=== PATIENT | male | born 1955 | race Caucasian/White ===

== ENCOUNTER 2018-06-20 16:00 | Emergency (ER) | payer MEDICARE ==
[~2018-06-20] VITALS: Ht 167.6 cm; Wt 71.7 kg
[~2018-06-20 16:00] MED LIST: GBPN100C PO; HYDR1TAB8 PO; MS15TCR PO; NAPR-243 PO; NCT21TD TD; PRD20T PO; TIZA4TAB55 PO
[2018-06-20] MEDS ORDERED: ASPIRIN 81 MG CHEW (CHILDREN'S ASA) PO ONE (16:15)
[2018-06-20 16:22] LABS: BASOPHILS # (AUTO) 0.1 10^3/uL (0.0-0.1); BASOPHILS % (AUTO) 1 % (0-10); EOSINOPHILS # (AUTO) 0.3 10^3/uL (0.0-0.3); EOSINOPHILS % (AUTO) 3 % (0-10); HEMATOCRIT 46 % (40-54); LYMPHOCYTES # (AUTO) 3.1 X 10^3 (1.0-4.0); LYMPHOCYTES % (AUTO) 30 % (12-44); MEAN CORPUSCULAR HEMOGLOBIN 32 PG (25-34); MEAN CORPUSCULAR HGB CONC 35 G/DL (32-36); MEAN CORPUSCULAR VOLUME 93 FL (80-99); MEAN PLATELET VOLUME 9.5 FL (7.4-10.4); MONOCYTES # (AUTO) 0.8 X 10^3 (0.0-1.0); MONOCYTES % (AUTO) 8 % (0-12); NEUTROPHILS # (AUTO) 6.1 X 10^3 (1.8-7.8); NEUTROPHILS % (AUTO) 59 % (42-75); PLATELET COUNT 307 10^3/uL (130-400); RED BLOOD COUNT 4.99 10^6/uL (4.35-5.85); RED CELL DISTRIBUTION WIDTH 12.9 % (10.0-14.5); WHITE BLOOD COUNT 10.4 10^3/uL (4.3-11.0)
--- NOTE | 2018-06-20 16:27 | Diagnostic Imaging Report ---
Indication: Chest pain. Frontal chest obtained at 4:19 hours p.m. Heart and mediastinal silhouette are normal in appearance. The lungs are clear. There is no pneumothorax or pleural fluid. Impression: Negative chest. Dictated by: Dictated on workstation # [id number]
[2018-06-20 16:40] LABS: ALANINE AMINOTRANSFERASE 14 U/L (0-55); ALBUMIN 4.6 GM/DL (3.2-4.5); ALKALINE PHOSPHATASE 92 U/L (40-136); BILIRUBIN,TOTAL 0.4 MG/DL (0.1-1.0); BUN/CREATININE RATIO 14; CALCIUM 10.6 MG/DL (8.5-10.1); CARBON DIOXIDE 23 MMOL/L (21-32); CHLORIDE 105 MMOL/L (98-107); CREATININE SERUM 1.15 MG/DL (0.60-1.30); GFR ESTIMATED > 60; GLUCOSE 95 MG/DL (70-105); MAGNESIUM 2.4 MG/DL (1.8-2.4); POTASSIUM 4.6 MMOL/L (3.6-5.0); SODIUM 138 MMOL/L (135-145); TOTAL PROTEIN 8.1 GM/DL (6.4-8.2)
[2018-06-20 16:42] LABS: INR 0.9 (0.8-1.4); PROTHROMBIN TIME PATIENT 12.5 SEC (12.2-14.7)
[2018-06-20 16:46] LABS: MYOGLOBIN SERUM 29.6 NG/ML (10.0-92.0)
[2018-06-20] MEDS ORDERED: NS IV 1000 ML 1,000 ML IV ONE (16:56)
[2018-06-20] MEDS ORDERED: RT-ALBUTEROL/IPRATROPIUM 3 ML (DUONEB) VIAL INH ONE (17:00)
[2018-06-20] MEDS ORDERED: CATHETER FLUSH 10 ML SYR IV PRN (17:00)
[2018-06-20] MEDS ORDERED: IOHEXOL 350 MG/ML 100 ML (OMNIPAQUE 350) VIAL IV ONE (17:00)
[2018-06-20] MEDS ORDERED: NS 250 ML (IVPB) BAG IV ONE (17:00)
--- NOTE | 2018-06-20 17:15 | ED Chest Pain ---
General Chief Complaint: Chest Pain Stated Complaint: CP Nursing Triage Note: PT AMBULATED TO ROOM 9 PT CO OF CHEST PAIN, PT STATES STARTED ON WEDNESDAY, PT HAS SOA STATES UPPER LUNGS BURNING, PT WAS SENT TO ED BY [facility]. RATES DISCOMFORT 03/17 Nursing Sepsis Screen: No Definite Risk Source: patient Exam Limitations: no limitations (ROMMEL OSPINA MD) History of Present Illness Date Seen by Provider: Jun 20, 2018 Time Seen by Provider: 16:02 Initial Comments Here with report of 2 days of shortness of air and upper lungs are burning. Had some central chest discomfort as well. Went to the clinic today and was sent here for further evaluation related heart problems. Denies previous heart attack. Denies previous heart problems. Does smoke and admits to some lung disease. Reports that he was helping a friend and put in stone block and did get into some dust from the stone block. Denies weakness but has had some nausea and shortness of breath. States that he has had some chills and sweating. Timing/Duration: 2-3 days Severity/Quality: moderate, burning, tightness Location: central Radiation: no radiation Activities at Onset: none Prior CP/Workup: no prior cardiac workup Modifying Factors: worse with breathing, worse with exercise; improves with rest ASA po TRANSPORTATION SECURITY SCREENER: No NTG SL TRANSPORTATION SECURITY SCREENER: No Associated Symptoms: No abdominal pain; diaphoresis, fatigue, fever/chills, nausea/vomiting, shortness of breath (ROMMEL OSPINA MD) Allergies and Home Medications Allergies Coded Allergies: No Known Drug Allergies (Unverified , 07/11/13) Home Medications Gabapentin 100 Mg Cap, 300 MG PO TID Prescribed by: KOSTA SOLORIO on 07/14/131118 Morphine Sulfate 15 Mg Tab, 1 EACH PO [id number] Prescribed by: KOSTA SOLORIO on 07/14/131118 Naproxen 500 Mg Tablet, 1 EACH PO BID Prescribed by: KOSTA SOLORIO on 07/14/13 111 Nicotine 21 Mg Box, 21 MG TD DAILY Prescribed by: KOSTA SOLORIO on 07/14/131118 Prednisone 20 Mg Tab, 40 MG PO BID WITH MEALS Prescribed by: KOSTA SOLORIO on 07/14/13 111 Tizanidine Hcl 4 Mg Tablet, 4 MG PO Q6PRN Prescribed by: KOSTA SOLORIO on 07/14/13 1119 Patient Home Medication List Home Medication List Reviewed: Yes (ROMMEL OSPINA MD) Review of Systems Constitutional: see HPI; No chills; diaphoresis EENTM: No Symptoms Reported Respiratory: See HPI, Shortness of Air, Wheezing Cardiovascular: Chest Pain; Denies Edema Gastrointestinal: Denies Abdominal Pain; Nausea; Denies Vomiting Genitourinary: No Symptoms Reported (ROMMEL OSPINA MD) All Other Systems Reviewed Negative Unless Noted: Yes (ROMMEL OSPINA MD) Past Fvksdlg-Yvduop-Vjgguk Hx Past Med/Social Hx: Reviewed Nursing Past Med/Soc Hx (ROMMEL OSPINA MD) Patient Social History Alcohol Use: Regular Use Number of Drinks Today: 0 Alcohol Beverage of Choice: Beer Recreational Drug Use: No Smoking Status: Current Everyday Smoker Type Used: Cigarettes Recent Foreign Travel: No Contact w/Someone Who Travel: No Recent Infectious Disease Expo: No Recent Hopitalizations: No Physical Abuse: No Sexual Abuse: No (ROMMEL OSPINA MD) Immunizations Up To Date Tetanus Booster (TDap): More than 5yrs PED Vaccines UTD: No Date of Pneumonia Vaccine: Aug 08, 2012 (ROMMEL OSPINA MD) Past Medical History Surgeries: Yes (knee and elbow surgery both on right) Orthopedic Respiratory: No Cardiac: No Neurological: No Reproductive Disorders: No Gastrointestinal: No Gastroesophageal Reflux, Hemorrhoids Musculoskeletal: Yes Chronic Back Pain Endocrine: No Cancer: No Psychosocial: No Nursing Suicide Risk Score: 0 Integumentary: No Blood Disorders: No (ROMMEL OSPINA MD) Family Medical History Reviewed Nursing Family Hx (ROMMEL OSPINA MD) No Pertinent Family Hx (ROMMEL OSPINA MD) Physical Exam Vital Signs Vital Signs - First Documented 06/20/18 16:00 Temp 97.5 Pulse 100 Resp 14 B/P (MAP) 158/101 (120) Pulse Ox 100 O2 Delivery Room Air (AHMET HOOPER) Vital Signs Capillary Refill : Less Than 3 Seconds (ROMMEL OSPINA MD) Height, Weight, BMI Height: 5'6.00" Weight: 158lbs. oz. 71.202487uw; BMI Method:Stated General Appearance: WD/WN, Anxious HEENT: PERRL/EOMI, Pharynx Normal Neck: Non Tender, Supple Respiratory: No Accessory Muscle Use, Expiration, Wheezing Cardiovascular: Regular Rate, Rhythm, No Murmur Gastrointestinal: Non Tender, Soft Rectal: Normal Exam, Normal Rectal Tone, Heme Negative Stool; No Mass, No Tenderness Extremity: Normal Range of Motion, Non Tender Neurologic/Psychiatric: Alert, Oriented x3 Skin: Normal Color, Warm/Dry (ROMMEL OSPINA MD) Focused Exam Lactate Level 06/20/18 16:13: Lactic Acid Level 0.85 (AHMET HOOPER) Lactic Acid Level Laboratory Tests Test 06/20/18 16:13 Lactic Acid Level 0.85 MMOL/L (0.50-2.00) (AHMET HOOPER) Progress/Results/Core Measures Results/Orders Lab Results Laboratory Tests Test 06/20/18 16:13 06/20/18 19:30 Range/Units White Blood Count 10.4 4.3-11.0 10^3/uL Red Blood Count 4.99 4.35-5.85 10^6/uL Hemoglobin 16.0 13.3-17.7 G/DL Hematocrit 46 40-54 % Mean Corpuscular Volume 93 80-99 FL Mean Corpuscular Hemoglobin 32 25-34 PG Mean Corpuscular Hemoglobin Concent 35 32-36 G/DL Red Cell Distribution Width 12.9 10.0-14.5 % Platelet Count 307 130-400 10^3/uL Mean Platelet Volume 9.5 7.4-10.4 FL Neutrophils (%) (Auto) 59 42-75 % Lymphocytes (%) (Auto) 30 12-44 % Monocytes (%) (Auto) 8 0-12 % Eosinophils (%) (Auto) 3 0-10 % Basophils (%) (Auto) 1 0-10 % Neutrophils # (Auto) 6.1 1.8-7.8 X 10^3 Lymphocytes # (Auto) 3.1 1.0-4.0 X 10^3 Monocytes # (Auto) 0.8 0.0-1.0 X 10^3 Eosinophils # (Auto) 0.3 0.0-0.3 10^3/uL Basophils # (Auto) 0.1 0.0-0.1 10^3/uL Prothrombin Time 12.5 12.2-14.7 SEC INR Comment 0.9 0.8-1.4 Activated Partial Thromboplast Time 20 L 24-35 SEC D-Dimer 0.81 H 0.00-0.49 UG/ML Sodium Level 138 135-145 MMOL/L Potassium Level 4.6 3.6-5.0 MMOL/L Chloride Level 105 98-107 MMOL/L Carbon Dioxide Level 23 21-32 MMOL/L Anion Gap 10 5-14 MMOL/L Blood Urea Nitrogen 16 7-18 MG/DL Creatinine 1.15 0.60-1.30 MG/DL Estimat Glomerular Filtration Rate > 60 BUN/Creatinine Ratio 14 Glucose Level 95 70-105 MG/DL Lactic Acid Level 0.85 0.50-2.00 MMOL/L Calcium Level 10.6 H 8.5-10.1 MG/DL Corrected Calcium 8.5-10.1 MG/DL Magnesium Level 2.4 1.8-2.4 MG/DL Total Bilirubin 0.4 0.1-1.0 MG/DL Aspartate Amino Transf (AST/SGOT) 17 5-34 U/L Alanine Aminotransferase (ALT/SGPT) 14 0-55 U/L Alkaline Phosphatase 92 40-136 U/L Myoglobin 29.6 23.6 10.0-92.0 NG/ML Troponin I < 0.30 < 0.30 <0.30 NG/ML B-Type Natriuretic Peptide 20.8 <100.0 PG/ML Total Protein 8.1 6.4-8.2 GM/DL Albumin 4.6 H 3.2-4.5 GM/DL (AHMET HOOPER) Medications Given in ED Current Medications Medications Dose Ordered Sig/Anuj Route Start Time Stop Time Status Last Admin Dose Admin Al Hydrox/Mg Hydrox/Simethicone 30 ml ONCE ONCE PO 06/20/18 17:45 06/20/18 17:46 DC 06/20/18 17:40 30 ML Albuterol/ Ipratropium 3 ml ONCE ONCE INH 06/20/18 17:00 06/20/18 17:01 DC 06/20/18 17:10 3 ML Aspirin 324 mg ONCE ONCE PO 06/20/18 16:15 06/20/18 16:16 DC 06/20/18 16:15 324 MG Iohexol 100 ml ONCE ONCE IV 06/20/18 17:00 06/20/18 17:01 DC 06/20/18 17:29 100 ML Lidocaine HCl 15 ml ONCE ONCE PO 06/20/18 17:45 06/20/18 17:46 DC 06/20/18 17:40 15 ML Pantoprazole 40 mg ONCE ONCE IV 06/20/18 18:00 06/20/18 18:01 DC 06/20/18 18:05 40 MG Sodium Chloride 10 ml NEEDED PRN IV 06/20/18 17:00 06/20/18 20:18 DC 06/20/18 17:29 10 ML Sodium Chloride 250 ml ONCE ONCE IV 06/20/18 17:00 06/20/18 17:01 DC 06/20/18 17:29 80 ML Sodium Chloride 1,000 ml @ 0 mls/hr Q0M ONCE IV 06/20/18 16:56 06/20/18 16:57 DC 06/20/18 18:05 1,000 MLS/HR (AHMET HOOPER) Vital Signs/I&O 06/20/18 06/20/18 06/20/18 06/20/18 16:00 16:00 17:11 17:50 Temp 97.5 Pulse 100 Resp 14 B/P (MAP) 158/101 (120) Pulse Ox 100 96 97 O2 Delivery Room Air Room Air Room Air 06/20/18 20:18 Pulse 109 Resp 16 B/P (MAP) 120/85 Pulse Ox 99 (RUFUSAHMET J) Blood Pressure Mean: 120 Progress Progress Note : Progress Note Seen and evaluated. IV, labs, EKG and chest x-ray ordered. Monitor patient. D -dimer noted to be elevated. Duo neb, normal saline [address] angiogram of the chest ordered. Monitor patient. Patient is feeling much better at time of ordering CT. 1745: Patient return from CT was severe of her chest pain. GI cocktail given which did help. Patient does admit to having postdelivery reflux especially worsening over the last week. He did take Pepto-Bismol the other night for his reflux because he is out of and acids. Hemoccult stool was done and this was negative and dark stool likely related to Pepto-Bismol. He did receive morphine 5 mg IV for the pain and this did help. Repeat albuterol neb and Solu-Medrol 125 mg IV ordered as well. Protonix 40 mg IV ordered. Monitor patient. 1850: We will repeat troponin and myoglobin as well as EKG. Patient is pain-free and doing much better. Anticipate discharge after labs remain the same. (ROMMEL OSPINA MD) Progress Note : Time: 20:06 Progress Note Assume care of the patient at shift change. Plan is to get a rule out troponin. I reviewed the history and examination with Dr. Ospina as well as with the patient and agree with his findings as documented in the chart. Does seem to be driven by gastrointestinal distress probably GERD. If there is no rise in the delta troponin and the plan is to follow up outpatient. The patientn agreement with this plan. Second EKG is unremarkable. Waiting the second troponin. (AHMET HOOPER) Initial ECG Impression Date: Jun 20, 2018 Initial ECG Impression Time: 16:02 Initial ECG Rate: 69 Initial ECG Rhythm: Normal Sinus Comment Sinus rhythm with left atrial abnormality. No evidence of ST elevation IA. Normal axis. No previous from this facility available for comparison but similar to EKG done earlier today at outside clinic. Interpreted by me. (ROMMEL OSPINA MD) Initial ECG Intervals: Normal Initial ECG Impression: Normal Initial ECG Comparisson: Unchanged EKG : EKG Time: 19:16 Rate: 98 Rhythm: Normal Sinus Intervals: Normal ECG Comparisson: Unchanged ECG Impression: Normal Comment No ST elevation or depression. (AHMET HOOPER) Diagnostic Imaging Diagonstic Imaging: Xray Plain Films/CT/US/NM/MRI: chest Comments NAME: SONDRA PATEL [facility] REC#: [id number] PT STATUS: REG ER : 1955 PHYSICIAN: ROMMEL OSPINA MD ADMIT DATE: 06/20/18/ER Signed Date of Exam: 06/20/18 CHEST 1 VIEW, AP/PA ONLY Indication: Chest pain. Frontal chest obtained at 4:19 hours p.m. Heart and mediastinal silhouette are normal in appearance. The lungs are clear. There is no pneumothorax or pleural fluid. Impression: Negative chest. Dictated by: Dictated on workstation # [id number] Dict: 06/20/18 1625 Trans: 06/20/18 1636 Interpreted by: SHARIFA PURDY MD Electronically signed by: SHARIFA PURDY MD 06/20/18 1636 Reviewed: Reviewed by Me Diagonstic Imaging: CT Plain Films/CT/US/NM/MRI: chest Comments NAME: SONDRA PATEL [facility] REC#: [id number] PT STATUS: REG ER : 1955 PHYSICIAN: ROMMEL OSPINA MD ADMIT DATE: 06/20/18/ER Draft Date of Exam:06/20/18 CT ANGIO CHEST W PROCEDURE: CT angiography of the chest with contrast. TECHNIQUE: Multiple contiguous axial images were obtained through the chest after uneventful bolus administration of intravenous contrast. Reconstructed CTA MIP acquisitions were also performed. INDICATION: Chest pain. There are no prior CTA chest examinations available for comparison. FINDINGS: The plain film examination of the chest performed earlier today at 0418 hours failed to show any sign of an acute cardiopulmonary abnormality. This study is less than optimal as the pulmonary arteries are not fully opacified. There is no definite defect within the pulmonary arteries to indicate a pulmonary embolus. The aorta is not abnormally dilated and there is no sign of a dissection. The heart size is within normal limits. There are coronary artery calcifications involving the LAD. The lungs are clear. There is no evidence for failure, pneumonia or for pleural effusion. There is no mediastinal or hilar adenopathy. The thyroid gland, where visualized, is unremarkable. The sections through the upper abdomen fail to show any sign of an acute abnormality. The bone windows are unremarkable for a fracture or for a destructive lesion. There is at least moderate degenerative disc and bony disease throughout the thoracic spine. IMPRESSION: 1. There is no evidence for an acute cardiopulmonary abnormality on this suboptimal exam. In particular, there is no sign of a pulmonary embolus. 2. The heart is not enlarged. There are coronary calcifications evident. 3. There is at least moderate degenerative and bony disease of the thoracic spine. Dictated on workstation # [id number] Dict: 06/20/181737 Trans: 06/20/181747 [facility] [id number] Interpreted by: EAMON KAUFFMAN MD Electronically signed by: Reviewed: Reviewed by Me (ROMMEL OSPINA MD) Departure Impression Primary Impression: Chest pain Qualified Codes: R07.9 - Chest pain, unspecified Additional Impressions: Gastroesophageal reflux disease Qualified Codes: K21.9 - Gastro-esophageal reflux disease without esophagitis Bronchitis Disposition: 01 HOME, SELF-CARE Condition: Improved Departure-Patient Inst. Decision time for Depature: 18:57 (ROMMEL OSPINA MD) Referrals: JOE POLANCO DO (PCP) Primary Care Physician HERMILA FERRARA (Family) Primary Care Physician BEN LOW DO Patient Instructions: Acid Reflux (Gastroesophageal Reflux Disease), Adult (DC) , Acute Bronchitis, Adult (DC), Chest Pain (DC) Add. Discharge Instructions: All discharge instructions reviewed with patient and/or family. Voiced understanding. Take medications as directed. Follow-up with the clinic in one to 2 days for recheck. You tomorrow to get her prescription for your Protonix and start taking that tomorrow. You may also take Pepcid or the generic famotidine 20 mg once or twice a day as needed for stomach upset as well. It is very important that you follow-up and get follow-up with a surgeon for possible upper endoscopy (scope) to evaluate for your stomach and burning esophagus problems. Return for worse pain, fever, vomiting, weakness, breathing problems or other concerns as needed. Copy Copies To 1: CYNTHIA MENDEZ MD, TIMOTHY D MD Jun 20, 2018 17:15 AHMET HOOPER Jun 20, 2018 20:07
[2018-06-20] MEDS ORDERED: methylPREDNISolone 125 MG (Solu-MEDROL) VIAL ONE (17:33)
[2018-06-20] MEDS ORDERED: methylPREDNISolone 125 MG (Solu-MEDROL) VIAL IV STA (17:34)
[2018-06-20] MEDS ORDERED: RT-ALBUTEROL SULF 2.5 MG/3 ML PRE-MIX VIAL INH STA (17:35)
[2018-06-20] MEDS ORDERED: morphine INJ 10 MG/ML 1ML (SYR OR VIAL) ONE (17:41)
[2018-06-20] MEDS ORDERED: morphine INJ 10 MG/ML 1ML (SYR OR VIAL) IVP STA (17:42)
[2018-06-20] MEDS ORDERED: LIDOCAINE 2% VISCOUS 15 ML UDC PO ONE (17:45)
[2018-06-20] MEDS ORDERED: ANTACID SUSP 30 ML UDC (MYLANTA) PO ONE (17:45)
--- NOTE | 2018-06-20 17:48 | Diagnostic Imaging Report ---
PROCEDURE: CT angiography of the chest with contrast. TECHNIQUE: Multiple contiguous axial images were obtained through the chest after uneventful bolus administration of intravenous contrast. Reconstructed CTA MIP acquisitions were also performed. INDICATION: Chest pain. There are no prior CTA chest examinations available for comparison. FINDINGS: The plain film examination of the chest performed earlier today at 0418 hours failed to show any sign of an acute cardiopulmonary abnormality. This study is less than optimal as the pulmonary arteries are not fully opacified. There is no definite defect within the pulmonary arteries to indicate a pulmonary embolus. The aorta is not abnormally dilated and there is no sign of a dissection. The heart size is within normal limits. There are coronary artery calcifications involving the LAD. The lungs are clear. There is no evidence for failure, pneumonia or for pleural effusion. There is no mediastinal or hilar adenopathy. The thyroid gland, where visualized, is unremarkable. The sections through the upper abdomen fail to show any sign of an acute abnormality. The bone windows are unremarkable for a fracture or for a destructive lesion. There is at least moderate degenerative disc and bony disease throughout the thoracic spine. IMPRESSION: 1. There is no evidence for an acute cardiopulmonary abnormality on this suboptimal exam. In particular, there is no sign of a pulmonary embolus. 2. The heart is not enlarged. There are coronary calcifications evident. 3. There is at least moderate degenerative and bony disease of the thoracic spine. Dictated by: Dictated on workstation # [id number]
[2018-06-20] MEDS ORDERED: PANTOPRAZOLE 40 MG/10 ML (PROTONIX) VIAL IV ONE ×2 (18:00→18:30)
[2018-06-20] MEDS ORDERED: RX-ALBUTEROL INHALER (PROAIR) 8 GM IH STA (19:00)
[2018-06-20 20:06] LABS: MYOGLOBIN SERUM 23.6 NG/ML (10.0-92.0)
[2018-06-20 20:18] VITALS: BP 120/85
== END 2018-06-20 20:17 | disposition home or self-care (01) ==
LOC: EDUNIT# 16:00 → ER 16:02
DX: R07.9 Chest pain, unspecified (principal); K21.9 Gastro-esophageal reflux disease without esophagitis; J40 Bronchitis, not specified as acute or chronic; F17.210 Nicotine dependence, cigarettes, uncomplicated; Z79.52 Long term (current) use of systemic steroids; Z87.19 Personal history of other diseases of the digestive system
CPT/HCPCS: 36415; 71045; 71275; 80053; 83605; 83735; 83874; 83880; 84484; 85025; 85379; 85610; 85730; 87040; 93005; 93041; 94640

== ENCOUNTER 2018-07-14 15:55 | Outpatient (CLI) | payer MEDICARE ==
[~2018-07-14] VITALS: Ht 167.6 cm; Wt 71.7 kg
[2018-07-14] MEDS ORDERED: OMEP20TA7 PO (16:03)
== END 2018-07-14 16:05 | disposition home or self-care (01) ==
LOC: PREOP 15:55
PROVIDERS: ATTEND Surgery
DX: Z01.818 Encounter for other preprocedural examination (principal)

== ENCOUNTER 2018-07-18 09:49 | Day surgery (SDC) | payer MEDICARE ==
[~2018-07-18] VITALS: Ht 167.6 cm; Wt 71.7 kg
[~2018-07-18 09:49] MED LIST changes: +OMEP20TA7 PO
--- OUTSIDE RECORDS SUMMARY | 2018-07-18 09:53 | XMS REPORT ---
Author Author [employer] [facility] Medical Staff Organization [facility] Address [address] [place], [place] [address] Phone [phone] Summary purpose TRANSITION OF CARE AUTO GENERATION Chief Complaint and Reason for Visit Admit Diagnosis 1 BACKACHE NOS Problem list No authorized problems tracked for continuity of care are available for this visit. Encounters No authorized problems tracked for encounter diagnoses are available for this visit. Medications No medications recorded for this patient visit Allergies, adverse reactions, alerts No allergy information is available for this patient. Immunizations No immunizations recorded for this patient visit Relevant diagnostic tests and/or laboratory data No authorized results are available for this patient visit History of procedures Procedure Code Code Type Description Date Performed Performing Physician [id number] CPT-4 TORADOL SYR 30MG/ML 07-27-2015 PRASAD JUNIOR 25600 CPT-4 EMERGENCY DEPT VISIT 07-27-2015 PRASAD JUNIOR 92522 CPT-4 EMERGENCY DEPT VISIT 07-27-2015 PRASAD JUNIOR 28101 CPT-4 THER/PROPH/DIAG INJ, SC/IM 07-27-2015 PRASAD JUNIOR Functional status Functional Status Finding Observation Time Abdomen Appearance flat :05 Abdomen soft :05 Oakes no :05 Urination normal :05 Quality sym/unlabored :05 Cough absent :05 Secretions no :05 Breath Sounds RUL clear :05 Breath Sounds RML clear :05 Breath Sounds RLL clear :05 Breath Sounds LIDA clear :05 Breath Sounds LLL clear :05 Airway natural :05 Chest Tube no :05 Oxygen no [id number] Temp >100.4 no :05 Temp <96.8 no :05 Chills with rigors no :05 HR > 90bpm no :05 Respirations > 20 yes :05 Systolic <90 no :05 headache stiff neck no :05 Nursing Note Into room with Dr to discharge pt. DC inst given to pt and verb understanding. Pt amb off unit in stable condition. :05 Vital signs Type Value Date Respiration Rate 22breaths per minute :05 Pulse 88beats per minute :05 Oxygen Saturation 95% :05 BP Systolic 124mmHg :05 BP Diastolic 89mmHg :05 Temperature 97.1F :05 Social history Type Value Smoking Status CURRENT EVERY DAY SMOKER Treatment Plan No treatment plan text is available for this visit. Hospital discharge instructions Dismissal Condition fair Disposition on DC home DC Inst/Educ Give yes Med/Side Effects Rev yes
--- OUTSIDE RECORDS SUMMARY | 2018-07-18 09:53 | XMS REPORT ---
Author Author [facility] Medical Staff Organization [facility] Address [address], [place] [id number] Phone [phone] Summary purpose TRANSITION OF CARE AUTO GENERATION Chief Complaint and Reason for Visit No authorized Reason for Visit (Admitting Diagnosis) is available for this visit. Problem list No authorized problems tracked for [...] for this patient visit History of procedures No procedures recorded for this patient visit. Functional status Functional Status Finding Observation Time Abdomen Appearance flat :05 Abdomen soft :05 Oakes no :05 Urination normal :05 Quality sym/unlabored :05 Cough absent :05 Secretions no :05 Breath Sounds RUL clear :05 Breath Sounds RML clear :05 Breath Sounds RLL clear :05 Breath Sounds LIDA clear :05 Breath Sounds LLL clear :05 Airway natural :05 Chest Tube no :05 Oxygen no :05 Temp >100.4 no :05 Temp <96.8 no [...]
--- OUTSIDE RECORDS SUMMARY | 2018-07-18 09:54 | XMS REPORT ---
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 Name Role Phone CM BEARD Unavailable PROBLEMS Type Condition ICD9-CM Code TOL74-SM Code Onset Dates Condition Status SNOMED Code Problem 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 syndrome G89.4 Active 702678504 Problem Degenerative tear of glenoid labrum of right shoulder M24.111 Active 385478649 Problem Other chronic pain G89.29 Active 01285934 Problem Other fatigue R53.83 Active 84123123 Problem Other chronic pain G89.29 Active 02624024 Problem Other chest pain R07.89 Active 94048866 Problem Gastroesophageal reflux disease, esophagitis presence not specified K21.9 Active 655930080 Problem Rotator cuff syndrome of right shoulder M75.101 Active [id number] Problem Incomplete rotator cuff tear or rupture of right shoulder, not specified as traumatic M75.111 Active [id number] Problem Lumbago with sciatica, right side M54.41 Active 358080630 Problem Lumbago with sciatica, left side M54.42 Active 914075548 ALLERGIES No Information ENCOUNTERS Encounter Location Date Diagnosis [facility] [address] [id number] [address] 14 Jun, 2018 Gastroesophageal reflux disease, esophagitis presence not specified K21.9 and Other chest pain R07.89 [facility] [address] [facility] [id number] [address] 13 Jun, 2018 Chest pain, unspecified type R07.9 ; Shortness of breath R06.02 ; Black stools K92.1 ; Acute midline low back pain without sciatica M54.5 ; Rash R21 and Lumbago with sciatica, right side M54.41 [facility] [address] [id number], [place] [address] May, Incomplete rotator cuff tear or rupture of right shoulder, not specified as traumatic M75.111 [place] [address] [address] Feb, Lumbago with sciatica, right side M54.41 ; Lumbago with sciatica, left side M54.42 ; Other chronic pain G89.29 and Elevated BP without diagnosis of hypertension R03.0 [place] [address] [address] Feb, Rotator cuff syndrome of right shoulder M75.101 [place] [address] [address]- [address] Dec, Incomplete rotator cuff tear or rupture of right shoulder, not specified as traumatic M75.111 and Degenerative tear of glenoid labrum of right shoulder M24.111 [place] [address] [address] Nov, Pain in right shoulder M25.511 ; Other chronic pain G89.29 and Cough R05 [place] [address] [address]- [address] Nov, Acute midline low back pain without sciatica M54.5 [place] [address] [address] 16 Aug, 2017 Rash R21 [facility] [address] [address] Jun, LLQ abdominal pain R10.32 and Diverticulitis of large intestine without bleeding, unspecified complication status K57.32 [place] [address] [address] Apr, 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 syndrome G89.4 [place] [address] [address]- [address] 07 Apr, 2017 Seborrheic keratosis L82.1 [place] [address] [address] March, Parotid gland enlargement K11.1 [facility] [id number] [place] [address] March, Tick bite, initial encounter W57.XXXA [facility] [id number] [place] [address]- 5[address] March, [place] [address] [address] Feb, Preop testing Z01.818 [place] [address] [address]- [address] Feb, Screening, lipid Z13.220 [place] [address] [address]- [address] Feb, 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 syndrome G89.4 [place] [address] [address]- 1082 Jan, Chondromalacia, right knee M94.261 [place] [address] [address]- [address] Dec, Pain in right knee M25.561 ; Other chronic pain G89.29 ; Parotid gland enlargement K11.1 and Screening, lipid Z13.220 [facility] [id number] [place] [address] 6[address]- 6159 Nov, Encounter for immunization Z23 [place] [id number] [place] [address] 39771- 0203 Jun, 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 syndrome G89.4 [place] [address] [address]- 08[address] May, 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 syndrome G89.4 and 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 [place] [id number] [place] [address]47- 7281 May, [place] [address] [address] May, Seborrheic keratosis L82.1 [facility] [address] [address] March, [facility] [id number] [place] [address] 02919- 8956 Feb, [facility] [id number] [place] [address] 685497- 2668 Jan, [facility] [id number] [place] [address] 45589- 0436 Jan, 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 syndrome G89.4 and senior living current use of opiate analgesic Z79.891 [facility] [id number] [place] [address] 6[address]85- 7923 Jan, 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 syndrome G89.4 and senior living current use of opiate analgesic Z79.891 [facility] [id number] [place] [address] 06425- 0791 Dec, [facility] [id number] [place] [address] 083625- 7508 Dec, Knee pain M25.569 [facility] [id number] [place] [address]27- 9528 Nov, [facility] [address] [address] 16[address] Oct, [facility] [id number] [place] [address] 10714- 6849 Oct, [facility] [id number] [place] [address] 679460- 2057 Sep, [facility] [id number] [place] [address] 026284- 9186 Aug, [facility] [address] [address] Aug, [facility] [id number] [place] [address] 04516- 5172 Jul, [facility] [place] [facility] [address] [facility] [id number] [place] [address] Jul, No condition on [place] I V71.09 and No condition on [place] II V7. [facility] [place] [facility] [address] [id number] [place] [address]- 3897 22 Jul, 2015 [facility] [place] [facility] [address] [id number] [place] [address]- 8636 Jul, [facility] [place] [facility] [address] [id number] [place] [address]- 1293 Jul, [facility] [place] [facility] [address] [id number] [place] [address]- 0817 Jun, [facility] [place] [facility] [address] [facility] [id number] [place] [address] Jun, [facility] [place] [facility] [address] [facility] [id number], [place] [address]- 366[address] May, [facility] [place] [facility] [address] [facility] [id number] [place] [address]- 8840 May, [facility] [place] [facility] [address] [facility] [id number], [place] [address]- 0[address] Apr, [facility] [place] [facility] [address] [facility] [id number], [place] [address]- 359[address] Apr, [facility] [place] [facility] [address] [facility] [id number], [place] [address]- 0091 March, [facility] [place] [facility] [address] [facility] [id number] [place] [address]- 0480 Feb, [facility] [place] [facility] [address] [facility] [id number] [place] [address]- 9481 Feb, [facility] [place] [facility] [address] [facility] [id number], [place] [address]- 0158 Jan, [facility] [place] [facility] [address] [facility] [id number], [place] [address]- 5781 Jan, [facility] [place] [facility] [address] [id number] [place] [address]- 8109 Jan, [facility] [place] [facility] [address] [id number] [place] [address]- 3816 Jan, [facility] [place] [facility] [address] [id number] [place] [address]- 2091 Jan, [facility] [place] [facility] [address] [id number] [place] [address]- 0699 17 Jan, 2015 [facility] [place] [facility] [address] [id number] [place] [address]- 5198 16 Jan, 2015 [facility] [place] [facility] [address] [id number] [place] [address]- 9345 Jan, [facility] [place] [facility] [address] [facility] [id number] [place] [address]- 6340 Jan, [facility] [place] [facility] [address] [id number] [place] [address]- 6051 Dec, [facility] [place] [facility] [address] [id number] [place] [address]- 1560 Dec, [facility] [place] [facility] [address] [facility] [id number] [place] [address]- 8438 Dec, [facility] [place] [facility] [address] [facility] [id number] [place] [address]- 6186 Dec, [facility] [place] [facility] [address] [id number] [place] [address]- 2972 Dec, [facility] [place] [facility] [address] [id number] [place] [address] Dec, [facility] [place] [facility] [address] [id number] [place] 1258 Nov, [facility] [place] [facility] [address] [id number] [place] [address]- 1902 Nov, [facility] [place] [facility] [address] [id number] [place] [address]- 9653 Nov, [facility] [place] [facility] [address] [id number] [place] [address]- 6634 Nov, [facility] [place] [facility] [address] [id number] [place] [address]- 7740 Nov, [facility] [place] [facility] [address] [id number] [place] [address]- 1055 Nov, [facility] [place] [facility] [address] [id number] [place] [address]- 1082 Nov, [facility] [place] [facility] [address] [id number] [place] [address]- 3672 Nov, [facility] [place] [facility] [address] [id number] [place] [address]- 1840 Nov, [facility] [address] [id number] [place] [address]- 5312 Oct, [facility] [place] [facility] [address] [id number] [place] [address]- 2771 18 Oct, 2014 [facility] [place] [facility] [address] [id number] [place] [address]- 5483 18 Oct, 2014 [facility] [place] [facility] [address] [id number] [place] [address]- 6562 18 Oct, 2014 [facility] [place] [facility] [address] [id number] [place] [address]- 1920 16 Oct, 2014 [facility] [place] [facility] [address] [id number] [place] [address]- 1634 16 Oct, 2014 [facility] [place] [facility] [address] [id number] [place] [address]- 1988 Sep, [facility] [place] [facility] [address] [id number] [place] [address]- 9658 Sep, [facility] [place] [facility] [address] [id number] [place] [address]- 1104 Sep, [facility] [place] [facility] [address] [id number] [place] [address]- 9678 Sep, [facility] [place] [facility] [address] [id number] [place] [address]- 7685 Sep, [facility] [place] [facility] [address] [id number] [place] [address]- 4781 Sep, [facility] [place] [facility] [address] [id number] [place] [address]- 6562 Sep, [facility] [place] [facility] [address] [id number] [place] [address]- 1064 Sep, [facility] [place] [facility] [address] [id number] [place] [address]- 1970 Sep, [facility] [place] [facility] [address] [id number] [place] [address]- 6484 Sep, [facility] [place] [facility] [address] [id number] [place] [address]- 8369 Sep, [facility] [place] [facility] [address] [id number] [place] [address]- 8432 Sep, [facility] [place] [facility] [address] [id number] [place] [address]- 9525 Sep, [facility] [place] [facility] [address] [id number] [place] [address]- 9951 Sep, [facility] [place] [facility] [address] [id number] [place] [address]- 8845 Aug, [facility] [place] [facility] [address] [id number] [place] [address]- 4251 Aug, [facility] [place] [facility] [address] [id number] [place] [address]- 4468 Aug, [facility] [place] [facility] [address] [id number] [place] [address]- 3899 Aug, [facility] [place] [facility] [address] [id number] [place] [address]- 2268 Aug, [facility] [place] [facility] [address] [id number] [place] [address]- 8024 Aug, [facility] [place] [facility] [address] [id number] [place] [address]- 6382 Aug, [facility] [place] [facility] [address] [id number] [place] [address]- 4573 Aug, [facility] [place] [facility] [address] [id number] [place] [address]- 4453 Aug, [facility] [place] [facility] [address] [id number] [place] [address]- 6319 24 Jul, 2014 [facility] [place] [facility] [address] [id number] [place] [address]- 9548 24 Jul, 2014 [facility] [place] [facility] [address] [id number] [place] [address]- 0480 15 Jul, 2014 [facility] [place] [facility] [address] [id number] [place] [address]- 7568 15 Jul, 2014 [facility] [place] [facility] [address] [id number] [place] [address]- 0941 11 Jul, 2014 [facility] [place] [facility] [address] [id number] [place] [address]- 5374 Jul, [facility] [place] [facility] [address] [id number] [place] [address]- 9368 Jul, [facility] [place] [facility] [address] [id number] [place] [address]- 5109 Jul, [facility] [place] [facility] [address] [id number] [place] [address]- 1945 Jun, [facility] [place] [facility] [address] [id number] [place] [address]- 8193 Jun, [facility] [place] [facility] [address] [id number] [place] [address]- 5019 Jun, [facility] [place] [facility] [address] [id number] [place] [address]- 4469 Jun, [facility] [place] [facility] [address] [id number] [place] [address]- 4442 Jun, [facility] [place] [facility] [address] [id number] [place] [address]- 1857 Jun, [facility] [place] [facility] [address] [id number] [place] [address]- 5692 Jun, [facility] [place] [facility] [address] [id number] [place] [address]- 1166 Jun, [facility] [place] [facility] [address] [id number] [place] [address]- 0565 Jun, [facility] [place] [facility] [address] [id number] [place] [address]- 4770 Jun, [facility] [place] [facility] [address] [id number] [place] [address]- 4434 May, [facility] [place] [facility] [address] [id number] [place] [address]- 2200 May, [facility] [place] [facility] [address] [id number] [place] [address]- 7119 May, [facility] [place] [facility] [address] [id number] [place] [address]- 7907 May, [facility] [place] [facility] [address] [id number] [place] [address]- 0133 May, [facility] [place] [facility] [address] [id number] [place] [address]- 7032 May, [facility] [place] [facility] [address] [id number] [place] [address]- 7958 May, [facility] [place] [facility] [address] [id number] [place] [address]- 0087 May, [facility] [place] [facility] [address] [id number] [place] [address]- 1144 May, [facility] [place] [facility] [address] [id number] [place] [address]- 3642 May, [facility] [place] [facility] [address] [id number] [place] [address]- 8423 Apr, [facility] [place] [facility] [address] [id number] [place] [address]- 6860 Apr, [facility] [place] [facility] [address] [id number] [place] [address]- 0496 Apr, [facility] [place] [facility] [address] [id number] [place] [address]- 2332 Apr, [facility] [place] [facility] [address] [id number] [place] [address]- 7918 Apr, [facility] [place] [facility] [address] [id number] [place] [address]- 4343 Apr, [facility] [place] [facility] [address] [id number] [place] [address]- 5969 Apr, [facility] [place] [facility] [address] [id number] [place] [address]- 9954 Apr, [facility] [place] [facility] [address] [id number] [place] [address]- 1241 March, [facility] [place] [facility] [address] [id number] [place] [address]- 8717 March, [facility] [place] [facility] [address] [id number] [place] [address]- 5027 Feb, [facility] [place] [facility] [address] [id number] [place] [address]- 8412 Feb, [facility] [place] [facility] [address] [id number] [place] [address]- 1910 Feb, [facility] [place] [facility] [address] [id number] [place] [address]- 6301 Feb, [facility] [place] [facility] [address] [id number] [place] [address]- 8043 02 Feb, 2014 [facility] [place] [facility] [address] [id number] [place] [address]- 0746 19 Jan, 2014 [facility] [place] [facility] [address] [id number] [place] [address]- 0339 19 Jan, 2014 [facility] [place] [facility] [address] [id number] [place] [address]- 5080 17 Jan, 2014 [facility] [place] [facility] [address] [id number] [place] [address]- 3833 17 Jan, 2014 [facility] [place] [facility] [address] [id number] [place] [address]- 7668 14 Jan, 2014 [facility] [place] [facility] [address] [id number] [place] [address]- 3685 14 Jan, 2014 [facility] [place] [facility] [address] [id number] [place] [address]- 1911 14 Jan, 2014 [facility] [place] [facility] [address] [id number] [place] [address]- 5125 14 Jan, 2014 [facility] [place] [facility] [address] [id number] [place] [address]- 9892 Dec, [facility] [place] [facility] [address] [id number] [place] [address]- 7003 Dec, [facility] [place] [facility] [address] [id number] [place] [address]- 6843 Dec, [facility] [place] [facility] [address] [id number] [place] [address]- 2804 Dec, [facility] [place] [facility] [address] [id number] [place] [address]- 5958 Dec, [facility] [place] [facility] [address] [id number] [place] [address] Dec, [facility] [place] [facility] [address] [id number], [place] [address]- 6484 Dec, [facility] [address] [id number] [place] [address]- 4162 Dec, [facility] [place] [facility] [address] [id number] [place] [address]- 9422 Nov, [facility] [place] [facility] [address] [facility] [id number] [place] [address]- 9981 Nov, [facility] [place] [facility] [address] [id number] [place] [address]- 2454 Nov, [facility] [place] [facility] [address] [id number] [place] [address]- 9208 Nov, [facility] [place] [facility] [address] [id number] [place] [address]- 3594 Nov, [facility] [address] [facility] [id number], [place] [address] Nov, [facility] [place] [facility] [address] [facility] [id number] [place] [address] Nov, [facility] [address] [id number] [place] [address] Oct, [facility] [place] [facility] [address] [facility] [id number] [place] [address] Oct, [facility] [place] [facility] [address] [id number], [place] [address] Oct, [facility] [place] [facility] [address] [id number], [place] [address] Oct, [facility] [place] [facility] [address] [id number] [place] [address] Oct, [facility] [place] [facility] [address] [facility] [id number] [place] [address] Oct, [facility] [place] [facility] [address] [facility] [id number] [place] [address] Oct, [facility] [place] [facility] [address] [id number] [place] [address] Oct, [facility] [place] [facility] [address] [id number] [place] [address] Sep, [facility] [place] [facility] [address] [id number] [place] [address] Sep, [facility] [place] [facility] [address] [id number] [place] [address] Aug, [facility] [place] [facility] [address] [id number] [place] [address] Aug, [facility] [place] [facility] [address] [id number] [place] [address] Aug, [facility] [place] [facility] [address] [id number] [place] [address] Aug, [facility] [place] [facility] [address] [id number] [place] [address] 27 Jul, 2013 [facility] [place] [facility] [address] [id number] [place] [address] 26 Jul, 2013 [facility] [place] [facility] [address] [id number] [place] [address] 17 Jul, 2013 [facility] [place] [facility] [address] [id number] [place] [address] 16 Jul, 2013 [facility] [place] [facility] [address] [id number] [place] [address] Jun, [facility] [place] [facility] [address] [id number] [place] [address] Jun, [facility] [place] [facility] [address] [id number] [place] [address] Jun, [facility] [place] [facility] [address] [id number] [place] [address] 18 Feb, 2013 [facility] [place] [facility] [address] [id number] [place] [address] Jan, [facility] [address] [facility] [id number], [place] [address] Dec, [facility] [address] [facility] [id number][place] [address] Dec, [facility] [id number], [place] [address] Dec, [facility] [id number], [place] [address] Jan, [facility] [id number], [place] [address] Dec, [facility] [address] [id number] [address] [address] Dec, [facility] [id number], [place] [address] Dec, [facility] [id number], [place] [address] Sep, [facility] [id number], [place] [address] Sep, [facility] [id number], [place] [address] Aug, [facility] [id number], [place] [address] Oct, [facility] [id number], [place] [address] Sep, [facility] [id number], [place] [address] Aug, [facility] [id number], [place] [address] Apr, [facility] [id number], [place] [address] Oct, IMMUNIZATIONS No Known Immunizations SOCIAL HISTORY Never Assessed REASON FOR VISIT 8 wk shoulder f/u PLAN OF CARE Activity Details Follow Up prn Reason: VITAL SIGNS MEDICATIONS Unknown Medications RESULTS No Results PROCEDURES Procedure Date Ordered Result Body Site DRAIN/INJECT, JOINT/BURSA May 12, 2018 [facility] VISIT ESTABLISHED PATIENT May 12, 2018 DEPO MEDROL 80 MG/ML May 12, 2018 INSTRUCTIONS MEDICATIONS ADMINISTERED No Known Medications MEDICAL (GENERAL) HISTORY Type Description Date Medical History Acid Reflux Surgical History Left wrist Carpectomy - Ortho 4 States 04/2015 Surgical History Left Knee Replacement 04/2016 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
--- OUTSIDE RECORDS SUMMARY | 2018-07-18 09:54 | XMS REPORT ---
Author Author HERMILA FERRARA Organization [facility] Address [address] [place] [address] Care Team Providers Care Crime Scene Evidence Technician Name Role Phone HERMILA FERRARA Unavailable PROBLEMS Type Condition ICD9-CM Code NTC49-DB Code Onset Dates Condition Status SNOMED Code Problem Other fatigue R53.83 Active 27064827 Problem 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 syndrome G89.4 Active 781715321 Problem Other chronic pain G89.29 Active 42810055 Problem Lumbago with sciatica, right side M54.41 Active 431546261 Problem Lumbago with sciatica, left side M54.42 Active 080369635 Problem Incomplete rotator cuff tear or rupture of right shoulder, not specified as traumatic M75.111 Active 5292521414194310 Problem Other chronic pain G89.29 Active 18195191 Problem Rotator cuff syndrome of right shoulder M75.101 Active [id number] Problem Degenerative tear of glenoid labrum of right shoulder M24.111 Active 973729105 ALLERGIES No Known Allergies ENCOUNTERS Encounter Location Date Diagnosis [place] [address] [id number] [place] [address] 71970- 5108 Jun, [place] [id number] [place] [address] 44519- 6983 May, Incomplete rotator cuff tear or rupture of right shoulder, not specified as traumatic M75.111 [place] [id number] [place] [address] 60097- 8855 Feb, Lumbago with sciatica, right side M54.41 ; Lumbago with sciatica, left side M54.42 ; Other chronic pain G89.29 and Elevated BP without diagnosis of hypertension R03.0 [facility] [id number] [place] [address] 45378- 2125 05 Apr, 2018 Rotator cuff syndrome of right shoulder M75.101 [place] [id number] [place] [address] 27656- 9304 Dec, Incomplete rotator cuff tear or rupture of right shoulder, not specified as traumatic M75.111 and Degenerative tear of glenoid labrum of right shoulder M24.111 [place] [id number] [place] [address] 74778- 8041 Nov, Pain in right shoulder M25.511 ; Other chronic pain G89.29 and Cough R05 [place] [address] 87968- 6746 Nov, Acute midline low back pain without sciatica M54.5 [place] [address] 20044- 5942 16 Aug, 2017 Rash R21 [facility] [place] [address] 18418 -1258 Jun, LLQ abdominal pain R10.32 and Diverticulitis of large intestine without bleeding, unspecified complication status K57.32 [place] [address] 86696- 1347 Apr, 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 syndrome G89.4 [place] [address] 70886- 6867 Apr, Seborrheic keratosis L82.1 [place] [address] 77952- 2173 March, Parotid gland enlargement K11.1 [facility] [id number] [place] [address] 96787 -9668 March, Tick bite, initial encounter W57.XXXA [place] [address] 64587- 0986 March, [place] [address] 04585- 5998 Feb, Preop testing Z01.818 [place] [address] [address] 6[address] Feb, Screening, lipid Z13.220 [facility] [id number] [place] [address] 04972- 8706 Feb, 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 syndrome G89.4 [facility] [id number] [place] [address] 11066 2546 Jan, Chondromalacia, right knee M94.261 [facility] [id number] [place] [address] 57157 2542 Dec, Pain in right knee M25.561 ; Other chronic pain G89.29 ; Parotid gland enlargement K11.1 and Screening, lipid Z13.220 [facility] [id number] [place] [address] 84320- 6659 Nov, Encounter for immunization Z23 [facility] [id number] [place] [address] 13908- 4853 Jun, 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 syndrome G89.4 [facility] [id number] [place] [address] 99239- 9636 May, 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 syndrome G89.4 and 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 [facility] [id number] [place] [address] 12695- 4120 May, [facility] [id number] [place] [address] 94757- 4409 May, Seborrheic keratosis L82.1 [facility] [id number] [place] [address] 47837- 2158 March, [facility] [id number] [place] [address] 00360- 2232 Feb, [facility] [id number] [place] [address] 86981- 2536 Jan, [facility] [id number] [place] [address] 82900- 1858 17 Jan, 2016 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 syndrome G89.4 and USP current use of opiate analgesic Z79.891 [facility] [id number] [place] [address] 56764- 2731 16 Jan, 2016 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 [facility] [address] [address]- 2316 Dec, [facility] [id number] [place] [address] 40965 2548 Dec, Knee pain M25.569 [facility] [id number] [place] [address] 25252- 6803 Nov, [facility] [id number] [place] [address] 80106- 8384 Oct, [facility] [id number] [place] [address] 66493- 1301 Oct, [facility] [id number] [place] [address] 78587- 1571 Sep, [facility] [id number] [place] [address] 50560- 7346 Aug, [facility] [address] [address]- 1253 Aug, [facility] [id number] [place] [address] 65143- 7585 Jul, [facility] [id number] [place] [address] 25738- 2549 Jul, No condition on Caney I V71.09 and No condition on Caney II V71.09 [facility] [address] [address] 6992 Jul, [facility] [address] [address]- 2765 Jul, [facility] [place] [facility] [id number] [place] [address]- 2546 Jul, [facility] [place] [facility] [address] [id number] [place] [address]- 6566 Jun, [facility] [place] [facility] [address] [id number] [place] [address]- 2546 Jun, [facility] [place] [facility] [address] [id number] [place] [address]- 5166 May, [facility] [place] [facility] [address] [id number] [place] [address]- 2546 May, [facility] [place] [facility] [address] [id number] [place] [address]- 6806 Apr, [facility] [place] [facility] [address] [id number] [place] [address]- 2616 Apr, [facility] [place] [facility] [address] [id number] [place] [address]- 9346 March, [facility] [address] [id number] [place] [address]- 0484 Feb, [facility] [place] [facility] [address] [id number] [place] [address]- 1214 Feb, [facility] [address] [id number] [place] [address]- 5802 Jan, [facility] [place] [facility] [address] [id number] [place] [address]- 9911 Jan, [facility] [place] [facility] [address] [id number] [place] [address]- 0929 Jan, [facility] [place] [facility] [address] [id number] [place] [address]- 6909 Jan, [facility] [place] [facility] [address] [id number] [place] [address]- 2546 Jan, [facility] [place] [facility] [address] [id number] [place] [address]- 6399 Jan, [facility] [place] [facility] [address] [id number] [place] [address]- 6659 16 Jan, 2015 [facility] [place] [facility] [address] [id number] [place] [address]- 8283 Jan, [facility] [place] [facility] [address] [id number] [place] [address]- 7176 Jan, [facility] [place] [facility] [address] [id number] [place] [address]- 2184 Dec, [facility] [place] [facility] [address] [id number] [place] [address]- 0961 Dec, [facility] [place] [facility] [address] [id number] [place] [address]- 9920 Dec, [facility] [place] [facility] [address] [id number] [place] [address]- 0499 Dec, [facility] [place] [facility] [address] [id number] [place] [address]- 9098 Dec, [facility] [place] [facility] [address] [id number] [place] [address]- 5913 Dec, [facility] [place] [facility] [address] [id number] [place] [address]- 9361 Nov, [facility] [place] [facility] [address] [id number] [place] [address]- 7380 Nov, [facility] [place] [facility] [address] [id number] [place] [address]- 0542 Nov, [facility] [place] [facility] [address] [id number] [place] [address]- 1112 Nov, [facility] [place] [facility] [address] [id number] [place] [address]- 2237 Nov, [facility] [place] [facility] [address] [id number] [place] [address]- 5363 Nov, [facility] [place] [facility] [address] [id number] [place] [address]- 8098 Nov, [facility] [address] [id number] [place] [address]- 6177 Nov, [facility] [place] [facility] [address] [id number] [place] [address]- 0964 Nov, [facility] [address] [id number] [place] [address]- 2361 Oct, [facility] [place] [facility] [address] [id number] [place] [address]- 5319 Oct, [facility] [address] [id number] [place] [address]- 9672 Oct, [facility] [address] [id number] [place] [address]- 9504 Oct, [facility] [place] [facility] [address] [id number] [place] [address]- 9577 Oct, [facility] [address] [id number] [place] [address]- 7160 16 Oct, 2014 [facility] [place] [facility] [address] [id number] [place] [address]- 7730 Sep, [facility] [address] [id number] [place] [address]- 5773 Sep, [facility] [place] [facility] [address] [id number] [place] [address]- 1736 Sep, [facility] [place] [facility] [address] [id number] [place] [address]- 7572 Sep, [facility] [place] [facility] [address] [id number] [place] [address]- 9625 18 Sep, 2014 [facility] [place] [facility] [address] [id number] [place] [address]- 9043 17 Sep, 2014 [facility] [place] [facility] [address] [id number] [place] [address]- 7275 Sep, [facility] [place] [facility] [address] [id number] [place] [address]- 3318 Sep, [facility] [place] [facility] [address] [id number] [place] [address]- 1297 Sep, [facility] [place] [facility] [address] [id number] [place] [address]- 8169 Sep, [facility] [place] [facility] [address] [id number] [place] [address]- 3372 Sep, [facility] [place] [facility] [address] [id number] [place] [address]- 9686 Sep, [facility] [place] [facility] [address] [id number] [place] [address]- 7434 Sep, [facility] [place] [facility] [address] [id number] [place] [address]- 0760 Sep, [facility] [place] [facility] [address] [id number] [place] [address]- 6672 Aug, [facility] [place] [facility] [address] [id number] [place] [address]- 3039 Aug, [facility] [place] [facility] [address] [id number] [address]- 1324 Aug, [facility] [place] [facility] [address] [id number], [place] [address]- 9741 Aug, [facility] [place] [facility] [address] [id number], [place] [address]- 5545 Aug, [facility] [place] [facility] [address] [id number] [place] [address]- 9520 Aug, [facility] [place] [facility] [address] [id number] 9017 Aug, [facility] [place] [facility] [address] [id number], [place] [address]- 8489 Aug, [facility] [place] [facility] [address] [id number], [place] [address]- 9315 Aug, [facility] [place] [facility] [address] [id number] [place] [address]- 6743 24 Jul, 2014 [facility] [place] [facility] [address] [id number] [place] [address]- 1788 24 Jul, 2014 [facility] [place] [facility] [address] [id number] [place] [address]- 0799 15 Jul, 2014 [facility] [place] [facility] [address] [id number] [place] [address]- 9967 15 Jul, 2014 [facility] [place] [facility] [address] [id number] [place] [address]- 0441 11 Jul, 2014 [facility] [place] [facility] [address] [id number] [place] [address]- 4625 Jul, [facility] [place] [facility] [address] [id number] [place] [address]- 1439 Jul, [facility] [place] [facility] [address] [id number] [place] [address]- 9556 Jul, [facility] [place] [facility] [address] [id number] [place] [address]- 5932 Jun, [facility] [place] [facility] [address] [id number] [place] [address]- 0449 Jun, [facility] [place] [facility] [address] [id number] [place] [address]- 6761 Jun, [facility] [place] [facility] [address] [id number] [place] [address]- 2864 Jun, [facility] [place] [facility] [address] [id number] [place] [address]- 5096 Jun, [facility] [place] [facility] [address] [id number] [place] [address]- 6155 Jun, [facility] [place] [facility] [address] [id number] [place] [address]- 5091 Jun, [facility] [place] [facility] [address] [id number] [place] [address]- 4998 Jun, [facility] [place] [facility] [address] [id number] [place] [address]- 0973 Jun, [facility] [place] [facility] [address] [id number] [place] [address]- 7059 Jun, [facility] [place] [facility] [address] [id number] [place] [address]- 6135 May, [facility] [place] [facility] [address] [id number] [place] [address]- 3772 May, [facility] [place] [facility] [address] [id number] [place] [address]- 7561 May, [facility] [place] [facility] [address] [id number] [place] [address]- 9521 May, [facility] [place] [facility] [address] [id number] [place] [address]- 3675 May, [facility] [place] [facility] [address] [id number] [place] [address]- 9414 May, [facility] [place] [facility] [address] [id number] [place] [address]- 4260 May, [facility] [place] [facility] [address] [id number] [place] [address]- 9186 May, [facility] [place] [facility] [address] [id number] [place] [address]- 0567 May, [facility] [place] [facility] [address] [id number] [place] [address]- 5977 May, [facility] [place] [facility] [address] [id number] [place] [address]- 8751 Apr, [facility] [place] [facility] [address] [id number] [place] [address]- 1611 Apr, [facility] [place] [facility] [address] [id number] [place] [address]- 1614 Apr, [facility] [place] [facility] [address] [id number] [place] [address]- 3984 Apr, [facility] [place] [facility] [address] [id number] [place] [address]- 3753 Apr, [facility] [place] [facility] [address] [id number] [place] [address]- 4239 Apr, [facility] [place] [facility] [address] [id number] [place] [address]- 3229 Apr, [facility] [place] [facility] [address] [id number] [place] [address]- 2200 Apr, [facility] [place] [facility] [address] [id number] [place] [address]- 6171 March, [facility] [place] [facility] [address] [id number] [place] [address]- 7110 March, [facility] [place] [facility] [address] [id number] [place] [address]- 9922 Feb, [facility] [place] [facility] [address] [id number] [place] [address]- 4335 Feb, [facility] [place] [facility] [address] [id number] [place] [address]- 3417 Feb, [facility] [place] [facility] [address] [id number] [place] [address]- 4165 Feb, [facility] [place] [facility] [address] [id number], [place] [address]- 8226 Feb, [facility] [place] [facility] [address] [id number] [place] [address]- 3368 Jan, [facility] [place] [facility] [address] [id number] [place] [address]- 8787 Jan, [facility] [place] [facility] [address] [id number] [place] [address]- 2175 17 Jan, 2014 [facility] [place] [facility] [address] [id number] [place] [address]- 2071 17 Jan, 2014 [facility] [place] [facility] [address] [id number] [place] [address]- 4684 14 Jan, 2014 [facility] [place] [facility] [address] [id number] [place] 9377 14 Jan, 2014 [facility] [place] [facility] [address] [id number] [place] [address]- 4474 14 Jan, 2014 [facility] [place] [facility] [address] [id number] [place] [address]- 9980 14 Jan, 2014 [facility] [place] [facility] [address] [id number] [place] [address]- 2372 19 Dec, 2013 [facility] [place] [facility] [address] [id number] [place] [address]- 5087 Dec, [facility] [place] [facility] [address] [id number] [place] [address]- 2780 Dec, [facility] [place] [facility] [address] [id number] [place] [address]- 0156 Dec, [facility] [place] [facility] [address] [id number] [place] [address]- 9756 Dec, [facility] [place] [facility] [address] [id number] [place] [address]- 4939 Dec, [facility] [place] [facility] [address] [id number] [place] [address]- 5418 Dec, [facility] [place] [facility] [address] [id number] [place] [address]- 3517 Dec, [facility] [place] [facility] [address] [id number] [place] [address]- 9480 Nov, [facility] [place] [facility] [address] [id number] [place] [address]- 8400 Nov, [facility] [place] [facility] [address] [id number] [place] [address]- 5709 Nov, [facility] [place] [facility] [address] [id number] [place] [address]- 4820 16 Nov, 2013 [facility] [place] [facility] [address] [id number] [place] [address]- 1992 Nov, [facility] [place] [facility] [address] [id number] [place] [address]- 9515 Nov, [facility] [place] [facility] [address] [id number] [place] [address]- 5250 Nov, [facility] [place] [facility] [address] [id number] [place] [address]- 9947 Oct, [facility] [place] [facility] [address] [id number] [place] [address]- 4226 Oct, [facility] [place] [facility] [address] [id number] [place] [address]- 9903 Oct, [facility] [place] [facility] [address] [id number] [place] [address]- 5664 Oct, [facility] [place] [facility] [address] [id number] [place] [address]- 3687 Oct, [facility] [place] [facility] [address] [id number] [place] [address]- 9580 Oct, [facility] [place] [facility] [address] [id number], [place] [address]- 5773 Oct, [facility] [place] [facility] [address] [id number], [place] [address]- 8994 02 Oct, 2013 [facility] [place] [facility] [address] [id number] [place] [address]- 7953 Sep, [facility] [place] [facility] [address] [id number], [place] [address]- 5553 04 Sep, 2013 [facility] [place] [facility] [address] [id number] [place] [address]- 3496 14 Aug, 2013 [facility] [place] [facility] [address] [id number] [place] [address] 14 Aug, 2013 [facility] [address] [id number] [place] [address] 02 Aug, 2013 [facility] [place] [facility] [address] [id number] [place] Aug, [facility] [address] [id number] [place] [address] 27 Jul, 2013 [facility] [place] [facility] [address] [id number] [place] [address] 26 Jul, 2013 [facility] [address] [id number] [place] [address] 17 Jul, 2013 [facility] [place] [facility] [address] [id number] [place] [address] 16 Jul, 2013 [facility] [address] [id number] [place] [address] Jun, [facility] [address] [id number] [place] [address] Jun, [facility] [address] [id number] [place] [address] Jun, [facility] [place] [facility] [address] [facility] [id number] [place] [address] Feb, [facility] [place] [facility] [address] [id number] [place] [address] Jan, [facility] [place] [facility] [address] [id number] [place] [address] Dec, [facility] [place] [facility] [address] [id number] [place] [address] Dec, [facility] [place] [facility] [address] [id number] [place] [address] 14 Dec, 2012 [facility] [place] [facility] [address] [id number] [place] [address] Jan, [facility] [address] [id number] [address] Dec, [facility] [id number] [address] Dec, [facility] [id number] [address] Dec, [facility] [id number], [place] [address] Sep, [facility] [id number], [place] [address] Sep, [facility] [id number] [place] [address] Aug, [facility] [id number], [place] [address] Oct, [facility] [id number] [address] Sep, [facility] [id number] [place] [address] Aug, [facility] [id number], [place] [address] Apr, [facility] [address] [id number], [place] [address] Oct, IMMUNIZATIONS No Known Immunizations SOCIAL HISTORY Never Assessed REASON FOR VISIT back pain WB-WA PLAN OF CARE Activity Details Follow Up 3 Months Reason:BP VITAL SIGNS Height 65 in 2018-02-21 Weight 165 lbs 2018-02-21 Temperature 98.2 degrees Fahrenheit 2018-02-21 Heart Rate 106 bpm 2018-02-21 Respiratory Rate 20 2018-02-21 BMI 27.45 kg/m2 2018-02-21 Blood pressure systolic 146 mmHg 2018-02-21 Blood pressure diastolic 94 mmHg 2018-02-21 MEDICATIONS Medication Instructions Dosage Frequency Start Date End Date Duration Status Hydrocodone-Acetaminophen 7.5-325 MG Orally every 6 hrs 1 tablet as needed 6h Feb, Active Aspirin Low Dose 81 mg take 1 tablet (81 mg) by oral route once daily Dec, Active Triamcinolone Acetonide 0.5 % Externally Twice a day 1 application to affected area 12h Aug, Not-Taking Cyclobenzaprine HCl Not-Taking RESULTS No Results PROCEDURES Procedure Date Ordered Result Body Site [facility] VISIT ESTABLISHED PATIENT February 21, 2018 INSTRUCTIONS MEDICATIONS ADMINISTERED No Known Medications MEDICAL (GENERAL) HISTORY Type Description Date Medical History Acid Reflux Surgical History Left wrist Carpectomy - Ortho 4 States 04/2015 Surgical History Left Knee Replacement 04/2016 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
--- OUTSIDE RECORDS SUMMARY | 2018-07-18 09:55 | XMS REPORT ---
Author Author MARK BEARD Organization [facility] Address [address] [place] [address] Care Team Providers Care Dispatcher Service Chief Name Role Phone MARK BEARD Unavailable PROBLEMS Type Condition ICD9-CM Code KBO43-YJ Code Onset Dates Condition Status SNOMED Code Problem Other fatigue R53.83 Active 35819323 Problem 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 syndrome G89.4 Active 901477926 Problem Other chronic pain G89.29 Active 18643760 Problem Lumbago with sciatica, right side M54.41 Active 503893529 Problem Lumbago with sciatica, left side M54.42 Active 856222420 Problem Incomplete rotator cuff tear or rupture of right shoulder, not specified as traumatic M75.111 Active [id number] Problem Other chronic pain G89.29 Active 65656976 Problem Rotator cuff syndrome of right shoulder M75.101 Active [id number] Problem Degenerative tear of glenoid labrum of right shoulder M24.111 Active 374306130 ALLERGIES No Information ENCOUNTERS Encounter Location Date Diagnosis [place] [id number] [place] [address] 86574- 4170 May, Incomplete rotator cuff tear or rupture of right shoulder, not specified as traumatic M75.111 [facility] [id number] [place] [address] 45945- 2370 Feb, Lumbago with sciatica, right side M54.41 ; Lumbago with sciatica, left side M54.42 ; Other chronic pain G89.29 and Elevated BP without diagnosis of hypertension R03.0 [facility] [address] [place] [id number] [place] [address] 81431- 7506 Feb, Rotator cuff syndrome of right shoulder M75.101 [facility] [address] [place] [id number] [place] [address] 35223- 4499 Dec, Incomplete rotator cuff tear or rupture of right shoulder, not specified as traumatic M75.111 and Degenerative tear of glenoid labrum of right shoulder M24.111 [place] [address] 72858- 3204 Nov, Pain in right shoulder M25.511 ; Other chronic pain G89.29 and Cough R05 [place] [address] 16762- 7002 Nov, Acute midline low back pain without sciatica M54.5 [place] [address] 81832- 9189 Aug, Rash R21 [facility] [place] [address] 25[address] -6720 Jun, LLQ abdominal pain R10.32 and Diverticulitis of large intestine without bleeding, unspecified complication status K57.32 [place] [address] 63859- 7046 Apr, 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 syndrome G89.4 [place] [address] 60932- 7123 Apr, Seborrheic keratosis L82.1 [place] [address] 56591- 2446 March, Parotid gland enlargement K11.1 [facility] [place] [address] 70875 -8418 March, Tick bite, initial encounter W57.XXXA [place] [address] 76222- 6189 March, [place] [address] 00590- 7803 Feb, Preop testing Z01.818 [place] [address] 77375- 2681 Feb, Screening, lipid Z13.220 [facility] [address] [place] [id number] [place] [address] 34583- 1087 03 Feb, 2017 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 syndrome G89.4 [facility] [address] [place] [id number] [place] [address] 49144 2546 16 Jan, 2017 Chondromalacia, right knee M94.261 [facility] [address] [place] [id number] [place] [address] 73878- 3476 20 Dec, 2016 Pain in right knee M25.561 ; Other chronic pain G89.29 ; Parotid gland enlargement K11.1 and Screening, lipid Z13.220 [place] [address] [place] [id number] [place] [address] 55461- 7236 13 Nov, 2016 Encounter for immunization Z23 [facility] [address] [place] [id number] [place] [address] 53982- 8885 Jun, 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 syndrome G89.4 [place] [address] [place] [id number] [place] [address] 67493- 8490 May, 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 syndrome G89.4 and 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 [place] [address] [place] [id number] [place] [address] 59828- 8661 May, [facility] [address] [place] [id number] [place] [address] 14145- 8528 May, Seborrheic keratosis L82.1 [facility] [address] [place] [id number] [place] [address] 34716- 2324 March, [facility] [address] [place] [id number] [place] [address] 78269- 7818 Feb, [facility] [address] [place] [id number] [place] [address] 13142- 0959 Jan, [facility] [address] [place] [id number] [place] [address] 99940- 1268 Jan, 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 syndrome G89.4 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 [address] [address] 2546 Dec, Knee pain M25.569 [facility] [address] [address] 2541 Nov, [facility] [id number] [place] [address] 53205- 0720 Oct, [facility] [address] [place] [id number] [place] [address] 00461- 4448 Oct, [facility] [address] [place] [id number] [place] [address] 61460- 3652 Sep, [facility] [address] [address]- 8808 Aug, [facility] [id number] [place] [address] 13036- 6501 Aug, [facility] [address] [address]- 254 Jul, [facility] [address] [address]- 2545 Jul, No condition on Hudson I V71.09 and No condition on Hudson II V71.09 [facility] [address] [address] 2546 Jul, [facility] [address] [address] 2548 Jul, [facility] [address] [address]- 2546 Jul, [facility] [address] [place] [id number] [place] [address]- 6014 Jun, [facility] [place] [facility] [address] [id number] [place] [address]- 8733 Jun, [facility] [place] [facility] [address] [id number] [place] [address]- 0415 May, [facility] [place] [facility] [address] [id number] [place] [address]- 5721 May, [facility] [place] [facility] [address] [id number] [place] [address]- 5821 Apr, [facility] [place] [facility] [address] [id number] [place] [address]- 4722 Apr, [facility] [place] [facility] [address] [id number] [place] [address]- 4817 March, [facility] [place] [facility] [address] [id number] [place] [address]- 8659 Feb, [facility] [place] [facility] [address] [id number] [place] [address]- 2626 Feb, [facility] [place] [facility] [address] [id number] [place] [address]- 6615 Jan, [facility] [place] [facility] [address] [id number] [place] [address]- 1976 Jan, [facility] [place] [facility] [address] [id number] [place] [address]- 1791 24 Jan, 2015 [facility] [place] [facility] [address] [id number] [place] [address]- 6389 24 Jan, 2015 [facility] [place] [facility] [address] [id number] [place] [address]- 6896 Jan, [facility] [place] [facility] [address] [id number] [place] [address]- 5117 17 Jan, 2015 [facility] [place] [facility] [address] [id number] [place] [address]- 8590 16 Jan, 2015 [facility] [place] [facility] [address] [id number] [place] [address]- 3995 Jan, [facility] [place] [facility] [address] [id number] [place] [address]- 2943 Jan, [facility] [place] [facility] [address] [id number] [place] [address]- 4096 Dec, [facility] [place] [facility] [address] [id number] [place] [address]- 0522 Dec, [facility] [place] [facility] [address] [id number] [place] [address]- 4288 Dec, [facility] [place] [facility] [address] [id number] [place] [address]- 3035 Dec, [facility] [place] [facility] [address] [id number] [place] [address]- 2161 Dec, [facility] [place] [facility] [address] [id number] [place] [address]- 3243 Dec, [facility] [place] [facility] [address] [id number] [place] [address]- 5166 Nov, [facility] [place] [facility] [address] [id number] [place] [address]- 7164 Nov, [facility] [place] [facility] [address] [id number] [place] [address]- 7228 Nov, [facility] [place] [facility] [address] [id number] [place] [address]- 6671 Nov, [facility] [place] [facility] [address] [id number] [place] [address]- 1514 Nov, [facility] [place] [facility] [address] [id number] [place] [address]- 4352 Nov, [facility] [place] [facility] [address] [id number] [place] [address]- 0599 Nov, [facility] [place] [facility] [address] [id number] [place] [address]- 3910 09 Nov, 2014 [facility] [place] [facility] [address] [id number] [place] [address]- 1594 Nov, [facility] [place] [facility] [address] [id number] [place] [address]- 6702 18 Oct, 2014 [facility] [place] [facility] [address] [id number] [place] [address]- 9717 18 Oct, 2014 [facility] [place] [facility] [address] [id number] [place] [address]- 0079 18 Oct, 2014 [facility] [place] [facility] [address] [id number] [place] [address]- 5621 18 Oct, 2014 [facility] [place] [facility] [address] [id number] [place] [address]- 6053 16 Oct, 2014 [facility] [place] [facility] [address] [id number] [place] [address]- 8531 16 Oct, 2014 [facility] [place] [facility] [address] [id number] [place] [address]- 3526 Sep, [facility] [place] [facility] [address] [id number] [place] [address]- 3855 Sep, [facility] [place] [facility] [address] [facility] [id number] [place] [address]- 3058 Sep, [facility] [place] [facility] [address] [id number] [place] [address]- 6406 19 Sep, 2014 [facility] [place] [facility] [address] [id number] [place] [address]- 2993 18 Sep, 2014 [facility] [place] [facility] [address] [id number] [place] [address]- 5741 17 Sep, 2014 [facility] [place] [facility] [address] [id number] [place] [address]- 5567 17 Sep, 2014 [facility] [place] [facility] [address] [id number] [place] [address]- 1683 17 Sep, 2014 [facility] [place] [facility] [address] [id number] [place] [address]- 5042 Sep, [facility] [place] [facility] [address] [id number] [place] 9195 Sep, [facility] [place] [facility] [address] [id number] [place] 6387 Sep, [facility] [place] [facility] [address] [id number] [place] 6527 Sep, [facility] [place] [facility] [address] [id number] [place] [address]- 4114 Sep, [facility] [place] [facility] [address] [id number] [place] [address]- 3041 Sep, [facility] [place] [facility] [address] [id number] [place] [address]- 2587 Aug, [facility] [place] [facility] [address] [id number] [place] [address]- 3233 Aug, [facility] [place] [facility] [address] [id number] [place] [address]- 9052 Aug, [facility] [place] [facility] [address] [id number] [place] [address]- 7328 Aug, [facility] [place] [facility] [address] [id number] [place] [address]- 7350 Aug, [facility] [place] [facility] [address] [id number] [place] [address]- 2717 Aug, [facility] [place] [facility] [address] [id number] [place] [address]- 4519 Aug, [facility] [place] [facility] [address] [id number] [place] [address]- 1529 Aug, [facility] [place] [facility] [address] [id number] [place] 1554 Aug, [facility] [place] [facility] [address] [id number] [place] [address]- 2473 24 Jul, 2013 [facility] [place] [facility] [address] [id number] [place] [address]- 5104 24 Jul, 2013 [facility] [place] [facility] [address] [id number] [place] [address]- 8272 15 Jul, 2014 [facility] [place] [facility] [address] [id number] [place] [address]- 1886 15 Jul, 2013 [facility] [place] [facility] [address] [id number] [place] [address]- 4866 11 Jul, 2013 [facility] [place] [facility] [address] [id number] [place] [address]- 1705 11 Jul, 2014 [facility] [place] [facility] [address] [id number] [place] [address]- 7739 Jul, [facility] [place] [facility] [address] [id number] [place] [address]- 6198 Jul, [facility] [place] [facility] [address] [id number] [place] [address]- 2264 Jun, [facility] [place] [facility] [address] [id number] [place] [address]- 9012 Jun, [facility] [place] [facility] [address] [id number] [place] [address]- 3845 Jun, [facility] [place] [facility] [address] [id number] [place] [address]- 8383 Jun, [facility] [place] [facility] [address] [id number] [place] [address]- 2389 Jun, [facility] [place] [facility] [address] [id number] [place] [address]- 1915 Jun, [facility] [place] [facility] [address] [id number] [place] [address]- 7779 Jun, [facility] [place] [facility] [address] [id number] [place] [address]- 4311 Jun, [facility] [place] [facility] [address] [id number] [place] [address]- 6137 Jun, [facility] [place] [facility] [address] [id number] [place] [address]- 3249 Jun, [facility] [place] [facility] [address] [id number] [place] [address]- 4458 May, [facility] [place] [facility] [address] [id number] [place] [address]- 2967 May, [facility] [place] [facility] [address] [id number] [place] [address]- 5563 May, [facility] [place] [facility] [address] [id number] [place] [address]- 7756 May, [facility] [place] [facility] [address] [id number] [place] [address]- 7414 May, [facility] [place] [facility] [address] [id number] [place] [address]- 3749 May, [facility] [place] [facility] [address] [id number] [place] [address]- 8594 May, [facility] [place] [facility] [address] [id number] [place] [address]- 0659 May, [facility] [place] [facility] [address] [id number] [place] [address]- 3409 May, [facility] [place] [facility] [address] [id number] [place] [address]- 0800 May, [facility] [place] [facility] [address] [id number] [place] [address]- 2954 Apr, [facility] [place] [facility] [address] [id number] [place] [address]- 5692 Apr, [facility] [place] [facility] [address] [id number] [place] [address]- 9528 Apr, [facility] [place] [facility] [address] [id number] [place] [address]- 3255 Apr, [facility] [place] [facility] [address] [id number] [place] [address]- 2555 Apr, [facility] [place] [facility] [address] [id number] [place] [address]- 7816 Apr, [facility] [place] [facility] [address] [id number] [place] [address]- 4432 Apr, [facility] [place] [facility] [address] [id number] [place] [address]- 1152 Apr, [facility] [place] [facility] [address] [id number] [place] [address]- 1126 March, [facility] [place] [facility] [address] [id number] [place] [address]- 3540 March, [facility] [place] [facility] [address] [id number] [place] [address]- 5767 Feb, [facility] [place] [facility] [address] [id number] [place] [address]- 7018 Feb, [facility] [place] [facility] [address] [id number] [place] [address]- 8876 Feb, [facility] [place] [facility] [address] [id number] [place] [address]- 4433 Feb, [facility] [place] [facility] [address] [id number] [place] [address]- 9820 Feb, [facility] [place] [facility] [address] [id number] [place] [address]- 2433 Jan, [facility] [place] [facility] [address] [id number] [place] [address]- 7508 Jan, [facility] [place] [facility] [address] [id number] [place] [address]- 0995 Jan, [facility] [place] [facility] [address] [id number] [place] [address]- 5052 Jan, [facility] [place] [facility] [address] [id number] [place] [address]- 0335 14 Jan, 2014 [facility] [place] [facility] [address] [id number] [place] [address]- 8876 14 Jan, 2014 [facility] [place] [facility] [address] [id number] [place] [address]- 0328 14 Jan, 2014 [facility] [place] [facility] [address] [id number] [place] [address]- 5363 14 Jan, 2014 [facility] [place] [facility] [address] [id number] [place] [address]- 5597 Dec, [facility] [place] [facility] [address] [id number] [place] [address]- 0110 Dec, [facility] [place] [facility] [address] [id number] [place] [address]- 3242 Dec, [facility] [place] [facility] [address] [id number] [place] [address]- 2933 Dec, [facility] [place] [facility] [address] [id number] [place] [address]- 3166 Dec, [facility] [place] [facility] [address] [id number] [place] [address]- 4175 Dec, [facility] [place] [facility] [address] [facility] [id number] [place] [address]- 6305 Dec, [facility] [place] [facility] [address] [id number] [place] [address]- 7936 Dec, [facility] [place] [facility] [address] [id number] [place] [address]- 3521 Nov, [facility] [place] [facility] [address] [id number] [place] [address]- 4127 Nov, [facility] [place] [facility] [address] [id number] [place] [address]- 2921 Nov, [facility] [place] [facility] [address] [id number] [place] [address]- 4859 Nov, [facility] [place] [facility] [address] [id number] [place] [address]- 0067 08 Nov, 2013 [facility] [place] [facility] [address] [id number] [place] [address]- 0210 08 Nov, 2013 [facility] [place] [facility] [address] [id number] [place] [address]- 6789 07 Nov, 2013 [facility] [place] [facility] [address] [id number] [place] [address]- 9258 Oct, [facility] [address] [id number] [place] [address]- 8703 Oct, [facility] [place] [facility] [address] [id number] [place] [address]- 0239 Oct, [facility] [place] [facility] [address] [id number] [place] [address]- 9126 Oct, [facility] [place] [facility] [address] [id number] [place] [address]- 3593 Oct, [facility] [place] [facility] [address] [id number] [place] [address]- 6005 Oct, [facility] [place] [facility] [address] [id number] [place] [address]- 4931 Oct, [facility] [place] [facility] [address] [id number] [place] [address]- 8792 Oct, [facility] [place] [facility] [address] [id number] [address]- 1145 Sep, [facility] [place] [facility] [address] [id number] [place] [address]- 9522 Sep, [facility] [place] [facility] [address] [id number] [place] [address]- 2397 14 Aug, 2013 [facility] [place] [facility] [address] [id number] [address] 14 Aug, 2013 [facility] [place] [facility] [address] [id number] [place] [address] Aug, [facility] [address] [id number] [place] [address] Aug, [facility] [address] [id number] [place] [address] Jul, [facility] [address] [facility] [id number] [place] [address] Jul, [facility] [address] [id number] [place] [address] 17 Jul, 2013 [facility] [address] [id number] [place] [address] 16 Jul, 2013 [facility] [address] [facility] [id number] [place] [address] Jun, [facility] [address] [address] Jun, [facility] [address] [facility] [id number] [place] [address] Jun, [facility] [address] [id number] [address] Feb, [facility] [address] [facility] [id number] [place] [address] Jan, [facility] [address] [facility] [id number] [place] [address] Dec, [facility] [address] [facility] [id number] [place] [address] Dec, [facility] [address] [id number] [place] [address] Dec, [facility] [place] [facility] [address] [facility] [id number] [place] [address] Jan, [facility] [address] [facility] [id number] [place] [address] Dec, [facility] [id number] [address] Dec, [facility] [id number] [address] Dec, [facility] [id number] [address] Sep, [facility] [id number] [address] Sep, [facility] [address]65[address] [address] Aug, [facility] [address] [address] Oct, [facility] [address]65[address] [address] Sep, [facility] [address] [address] Aug, [facility] [address] [address] Apr, [facility] [address]65[address] [address] Oct, IMMUNIZATIONS No Known Immunizations SOCIAL HISTORY Never Assessed REASON FOR VISIT right shoulder pain-xray done (seen 01/21/17 for knee) Consult Mark Beard;Tate RT(R) PLAN OF CARE Activity Details Follow Up 6 Weeks Reason: VITAL SIGNS Height 65 in 2017-12-30 Blood pressure systolic 130 mmHg 2017-12-30 Blood pressure diastolic 92 mmHg 2017-12-30 MEDICATIONS Unknown Medications RESULTS No Results PROCEDURES Procedure Date Ordered Result Body Site [facility] VISIT ESTABLISHED PATIENT Dec 30, 2017 INSTRUCTIONS MEDICATIONS ADMINISTERED No Known Medications MEDICAL (GENERAL) HISTORY Type Description Date Medical History Acid Reflux Surgical History Left wrist Carpectomy - Ortho 4 States 04/2015 Surgical History Left Knee Replacement 04/2016 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
--- OUTSIDE RECORDS SUMMARY | 2018-07-18 09:55 | XMS REPORT ---
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 Name Role Phone CM BEARD Unavailable PROBLEMS Type Condition ICD9-CM Code FZF30-SL Code Onset Dates Condition Status SNOMED Code Problem Other fatigue R53.83 Active 18804182 Problem 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 syndrome G89.4 Active 996953745 Problem Other chronic pain G89.29 Active 20015033 Problem Lumbago with sciatica, right side M54.41 Active 251034137 Problem Lumbago with sciatica, left side M54.42 Active 883957606 Problem Incomplete rotator cuff tear or rupture of right shoulder, not specified as traumatic M75.111 Active [id number] Problem Other chronic pain G89.29 Active 36181918 Problem Rotator cuff syndrome of right shoulder M75.101 Active [id number] Problem Degenerative tear of glenoid labrum of right shoulder M24.111 Active 615624832 ALLERGIES No Information ENCOUNTERS Encounter Location Date Diagnosis [place] [id number] [place] [address] 90646- 5005 Jun, [place] [address] [place] [id number] [place] [address] 28164- 5201 May, Incomplete rotator cuff tear or rupture of right shoulder, not specified as traumatic M75.111 [place] [address] [place] [id number] [place] [address] 87999- 0387 Feb, Lumbago with sciatica, right side M54.41 ; Lumbago with sciatica, left side M54.42 ; Other chronic pain G89.29 and Elevated BP without diagnosis of hypertension R03.0 [facility] [id number] [place] [address] 77805- 7339 Feb, Rotator cuff syndrome of right shoulder M75.101 [place] [address] [place] [id number] [place] [address] 56726- 1880 Dec, Incomplete rotator cuff tear or rupture of right shoulder, not specified as traumatic M75.111 and Degenerative tear of glenoid labrum of right shoulder M24.111 [place] [address] [place] [id number] [place] [address] 69692- 5387 Nov, Pain in right shoulder M25.511 ; Other chronic pain G89.29 and Cough R05 [place] [address] 52400- 8980 Nov, Acute midline low back pain without sciatica M54.5 [place] [address] 15122- 0733 Aug, Rash R21 [facility] [place] [address] 74964 -2071 Jun, LLQ abdominal pain R10.32 and Diverticulitis of large intestine without bleeding, unspecified complication status K57.32 [place] [address] [place] [id number] [place] [address] 74754- 0787 Apr, 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 syndrome G89.4 [place] [address] [place] [id number] [place] [address] 18776- 4200 Apr, Seborrheic keratosis L82.1 [place] [address] 62312- 3442 March, Parotid gland enlargement K11.1 [facility] [address] [place] [id number] [place] [address] 09389 -2351 March, Tick bite, initial encounter W57.XXXA [place] [address] 12808- 9161 March, [place] [address] [place] [id number] [place] [address] 26192- 3862 Feb, Preop testing Z01.818 [place] [address] [place] [id number] [place] [address] 60616- 6314 Feb, Screening, lipid Z13.220 [place] [address] [place] [id number] [place] [address] 84300- 4616 Feb, 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 syndrome G89.4 [facility] [address] [place] [id number] [place] [address] 33518- 7166 16 Jan, 2017 Chondromalacia, right knee M94.261 [facility] [address] [place] [id number] [place] [address] 64099- 8904 Dec, Pain in right knee M25.561 ; Other chronic pain G89.29 ; Parotid gland enlargement K11.1 and Screening, lipid Z13.220 [place] [address] [place] [id number] [place] [address] 17138- 9254 Nov, Encounter for immunization Z23 [place] [address] [place] [id number] [place] [address] 02849- 3859 Jun, 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 syndrome G89.4 [place] [address] [place] [id number] [place] [address] 29043- 1562 May, 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 syndrome G89.4 and 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 [place] [address] [place] [id number] [place] [address] 21506- 2662 May, [place] [address] [place] [id number] [place] [address] 23834- 8773 May, Seborrheic keratosis L82.1 [facility] [address] [place] [id number] [place] [address] 64824- 9216 March, [place] [address] [place] [id number] [place] [address] 13527- 5704 Feb, [facility] [address] [place] [id number] [place] [address] 24902- 7074 Jan, [place] [address] [place] [id number] [place] [address] 06644- 7475 Jan, 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 syndrome G89.4 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 [facility] [address] [place] [address] 21812- 7586 Jan, 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 syndrome G89.4 and prison current use of opiate analgesic Z79.891 [facility] [address] [address]- 9746 Dec, [facility] [address] [place] [id number] [place] [address] 09206- 2541 Dec, Knee pain M25.569 [facility] [address] [place] [id number] [place] [address] 73530- 9748 Nov, [facility] [address] [place] [id number] [place] [address] 42514- 7453 Oct, [facility] [address] [place] [id number] [place] [address] 88709- 4405 Oct, [facility] [address] [place] [id number] [place] [address] 71814- 2764 Sep, [facility] [address] [place] [id number] [place] [address] 20768- 4864 Aug, [facility] [address] [place] [address] 39179- 1149 Aug, [facility] [address] [place] [address] 06813- 4097 Jul, [facility] [address] [place] [id number] [place] [address] 88156- 9126 Jul, No condition on [place] I V71.09 and No condition on [place] II V71.09 [facility] [address] [place] [address] 02627- 6430 Jul, [facility] [address] [address]- 4213 Jul, [facility] [address] [place] [id number] [place] [address]- 3707 Jul, [facility] [place] [facility] [address] [id number] [place] [address]- 6841 Jun, [facility] [place] [facility] [address] [id number] [place] [address]- 8585 Jun, [facility] [place] [facility] [address] [id number] [place] [address]- 6684 May, [facility] [place] [facility] [address] [id number] [place] [address]- 7036 May, [facility] [place] [facility] [address] [id number] [place] [address]- 3633 Apr, [facility] [place] [facility] [address] [id number] [place] [address]- 1621 Apr, [facility] [place] [facility] [address] [id number] [place] [address]- 8063 March, [facility] [place] [facility] [address] [id number] [place] [address]- 8647 Feb, [facility] [place] [facility] [address] [id number] [place] [address]- 6513 Feb, [facility] [place] [facility] [address] [id number] [place] [address]- 8657 Jan, [facility] [place] [facility] [address] [id number] [place] [address]- 5293 Jan, [facility] [place] [facility] [address] [id number] [place] [address]- 4380 Jan, [facility] [place] [facility] [address] [id number] [place] [address]- 0107 Jan, [facility] [place] [facility] [address] [id number] [place] [address]- 5259 Jan, [facility] [place] [facility] [address] [id number] [place] [address]- 9832 Jan, [facility] [place] [facility] [address] [id number] [place] [address]- 6877 16 Jan, 2015 [facility] [place] [facility] [address] [id number] [place] [address]- 6496 Jan, [facility] [place] [facility] [address] [id number] [place] [address]- 8605 Jan, [facility] [place] [facility] [address] [id number] [place] [address]- 6897 Dec, [facility] [place] [facility] [address] [id number] [place] [address]- 2310 Dec, [facility] [place] [facility] [address] [id number] [place] [address]- 3112 Dec, [facility] [place] [facility] [address] [id number] [place] [address]- 6363 Dec, [facility] [place] [facility] [address] [id number] [place] [address]- 3386 Dec, [facility] [place] [facility] [address] [id number] [place] [address]- 3097 Dec, [facility] [place] [facility] [address] [id number] [place] [address]- 1325 Nov, [facility] [place] [facility] [address] [id number] [place] [address]- 6897 Nov, [facility] [place] [facility] [address] [id number] [place] [address]- 6304 Nov, [facility] [place] [facility] [address] [id number] [place] [address]- 5691 Nov, [facility] [place] [facility] [address] [id number] [place] [address]- 9155 Nov, [facility] [place] [facility] [address] [id number] [place] [address]- 9510 Nov, [facility] [place] [facility] [address] [id number] [place] [address]- 0144 Nov, [facility] [place] [facility] [address] [id number] [place] [address]- 0501 Nov, [facility] [place] [facility] [address] [id number] [place] [address]- 9758 Nov, [facility] [place] [facility] [address] [id number] [place] [address]- 1886 Oct, [facility] [place] [facility] [address] [id number] [place] [address]- 8804 Oct, [facility] [place] [facility] [address] [id number] [place] [address]- 8609 Oct, [facility] [place] [facility] [address] [id number] [place] [address]- 2961 Oct, [facility] [place] [facility] [address] [id number] [place] [address]- 1618 16 Oct, 2014 [facility] [place] [facility] [address] [id number] [place] [address]- 9884 16 Oct, 2014 [facility] [place] [facility] [address] [id number] [place] [address]- 8977 Sep, [facility] [place] [facility] [address] [facility] [id number] [place] [address]- 0795 Sep, [facility] [place] [facility] [address] [id number] [place] [address]- 7456 Sep, [facility] [place] [facility] [address] [id number] [place] [address]- 6182 19 Sep, 2014 [facility] [place] [facility] [address] [id number] [place] [address]- 0053 18 Sep, 2014 [facility] [place] [facility] [address] [id number] [place] [address]- 1177 17 Sep, 2014 [facility] [place] [facility] [address] [id number] [place] [address]- 9046 17 Sep, 2014 [facility] [place] [facility] [address] [id number] [place] [address]- 0962 Sep, [facility] [place] [facility] [address] [id number] [place] 5437 Sep, [facility] [place] [facility] [address] [id number] [place] 5597 Sep, [facility] [place] [facility] [address] [id number] [place] [address]- 2456 Sep, [facility] [place] [facility] [address] [id number] [place] [address]- 7919 Sep, [facility] [place] [facility] [address] [id number] [place] [address]- 8435 Sep, [facility] [place] [facility] [address] [id number] [place] [address]- 0273 Sep, [facility] [place] [facility] [address] [id number] [place] [address]- 6438 Aug, [facility] [place] [facility] [address] [id number] [place] [address]- 2363 Aug, [facility] [place] [facility] [address] [id number] [place] [address]- 7867 Aug, [facility] [place] [facility] [address] [id number] [place] [address]- 1031 Aug, [facility] [place] [facility] [address] [id number] [place] [address]- 5038 Aug, [facility] [place] [facility] [address] [id number] [place] [address]- 8041 Aug, [facility] [place] [facility] [address] [id number] [place] [address]- 8447 Aug, [facility] [place] [facility] [address] [id number] [place] 9124 Aug, [facility] [place] [facility] [address] [id number] [place] [address]- 3043 Aug, [facility] [place] [facility] [address] [id number] [place] [address]- 9935 24 Jul, 2014 [facility] [place] [facility] [address] [id number] [place] [address]- 3770 24 Jul, 2014 [facility] [place] [facility] [address] [id number] [place] [address]- 7974 15 Jul, 2014 [facility] [place] [facility] [address] [id number] [place] [address]- 9810 15 Jul, 2014 [facility] [place] [facility] [address] [id number] [place] [address]- 2641 Jul, [facility] [place] [facility] [address] [id number] [place] [address]- 9681 Jul, [facility] [place] [facility] [address] [id number] [place] [address]- 9259 Jul, [facility] [place] [facility] [address] [id number] [place] [address]- 3107 Jul, [facility] [place] [facility] [address] [id number] [place] [address]- 0824 Jun, [facility] [place] [facility] [address] [id number] [place] [address]- 5475 Jun, [facility] [place] [facility] [address] [id number] [place] [address]- 7814 Jun, [facility] [place] [facility] [address] [id number] [place] [address]- 7276 Jun, [facility] [place] [facility] [address] [id number] [place] [address]- 4822 Jun, [facility] [place] [facility] [address] [id number] [place] [address]- 1918 Jun, [facility] [place] [facility] [address] [id number] [place] [address]- 2946 Jun, [facility] [place] [facility] [address] [id number] [place] [address]- 3729 Jun, [facility] [place] [facility] [address] [id number] [place] [address]- 1763 Jun, [facility] [place] [facility] [address] [id number] [place] [address]- 5097 Jun, [facility] [place] [facility] [address] [id number] [place] [address]- 2931 May, [facility] [place] [facility] [address] [id number] [place] [address]- 1604 May, [facility] [place] [facility] [address] [id number] [place] [address]- 4071 May, [facility] [place] [facility] [address] [id number] [place] [address]- 6772 May, [facility] [place] [facility] [address] [id number] [place] [address]- 4997 May, [facility] [place] [facility] [address] [id number] [place] [address]- 7511 May, [facility] [place] [facility] [address] [id number] [place] [address]- 7743 May, [facility] [place] [facility] [address] [id number] [place] [address]- 6275 May, [facility] [place] [facility] [address] [id number] [place] [address]- 7185 May, [facility] [place] [facility] [address] [id number] [place] [address]- 8833 May, [facility] [place] [facility] [address] [id number] [place] [address]- 5468 Apr, [facility] [place] [facility] [address] [id number] [place] [address]- 3091 Apr, [facility] [place] [facility] [address] [id number] [place] [address]- 1445 Apr, [facility] [place] [facility] [address] [id number] [place] [address]- 3421 Apr, [facility] [place] [facility] [address] [id number] [place] [address]- 5995 Apr, [facility] [place] [facility] [address] [id number] [place] [address]- 8008 Apr, [facility] [place] [facility] [address] [id number] [place] [address]- 4073 Apr, [facility] [place] [facility] [address] [id number] [place] [address]- 8929 Apr, [facility] [place] [facility] [address] [id number] [place] [address]- 9794 March, [facility] [place] [facility] [address] [id number] [place] [address]- 9010 March, [facility] [place] [facility] [address] [id number] [place] [address]- 2679 Feb, [facility] [place] [facility] [address] [id number] [place] [address]- 5494 Feb, [facility] [place] [facility] [address] [id number] [place] [address]- 5434 Feb, [facility] [place] [facility] [address] [id number] [place] [address]- 8816 Feb, [facility] [place] [facility] [address] [id number] [place] [address]- 6754 Feb, [facility] [place] [facility] [address] [id number] [place] [address]- 8245 Jan, [facility] [place] [facility] [address] [id number] [place] [address]- 4829 Jan, [facility] [place] [facility] [address] [id number] [place] [address]- 4647 17 Jan, 2014 [facility] [place] [facility] [address] [id number] [place] [address]- 3021 17 Jan, 2014 [facility] [place] [facility] [address] [id number] [place] [address]- 7399 14 Jan, 2014 [facility] [place] [facility] [address] [id number] [place] 2093 14 Jan, 2014 [facility] [place] [facility] [address] [id number] [place] [address]- 9135 14 Jan, 2014 [facility] [place] [facility] [address] [id number] [place] [address]- 8517 14 Jan, 2014 [facility] [place] [facility] [address] [id number] [place] [address]- 6884 Dec, [facility] [place] [facility] [address] [id number] [place] [address]- 6133 Dec, [facility] [place] [facility] [address] [facility] [id number] [place] [address]- 8811 Dec, [facility] [place] [facility] [address] [id number] [place] [address]- 4980 Dec, [facility] [place] [facility] [address] [id number] [place] [address]- 1544 Dec, [facility] [place] [facility] [address] [facility] [id number] [place] [address]- 3838 Dec, [facility] [place] [facility] [address] [facility] [id number] [place] [address]- 2406 Dec, [facility] [place] [facility] [address] [facility] [id number] [place] [address]- 0527 Dec, [facility] [place] [facility] [address] [id number] [place] [address]- 1328 Nov, [facility] [place] [facility] [address] [id number] [place] [address]- 6024 Nov, [facility] [place] [facility] [address] [id number] [place] [address]- 2642 Nov, [facility] [place] [facility] [address] [id number] [place] [address]- 9723 16 Nov, 2013 [facility] [place] [facility] [address] [id number] [place] [address]- 1105 Nov, [facility] [place] [facility] [address] [id number] [place] 5699 Nov, [facility] [place] [facility] [address] [id number] [place] [address]- 9394 Nov, [facility] [address] [id number] [place] [address]- 5241 Oct, [facility] [place] [facility] [address] [id number] [place] [address]- 4060 Oct, [facility] [address] [id number] [place] [address] Oct, [facility] [place] [facility] [address] [id number] [place] [address] Oct, [facility] [place] [facility] [address] [id number] [place] [address] Oct, [facility] [place] [facility] [address] [id number] [place] [address] Oct, [facility] [place] [facility] [address] [id number] [place] [address] Oct, [facility] [place] [facility] [address] [id number], [place] [address] 02 Oct, 2013 [facility] [place] [facility] [address] [id number] [place] [address] Sep, [facility] [place] [facility] [address] [id number] [place] [address] 04 Sep, 2013 [facility] [place] [facility] [address] [id number], [place] [address] 14 Aug, 2013 [facility] [place] [facility] [address] [id number], [place] [address] 14 Aug, 2013 [facility] [address] [id number] [place] [address]26 Aug, [facility] [address] [id number] [address] Aug, [facility] [address] [id number] [place] [address] 27 Jul, 2013 [facility] [address] [id number] [place] [address] 26 Jul, 2013 [facility] [address] [id number] [place] [address] 17 Jul, 2013 [facility] [address] [id number] [place] [address]- [address] 16 Jul, 2013 [facility] [address] [id number] [address] Jun, [facility] [address] [id number] [place] [address] Jun, [facility] [address] [facility] [id number], [place] [address] Jun, [facility] [address] [facility] [id number], [place] [address] Feb, [facility] [address] [facility] [id number], [place] [address] Jan, [facility] [place] [facility] [address] [facility] [id number], [place] [address] Dec, [facility] [address] [id number], [place] [address] Dec, [facility] [place] [facility] [address] [id number], [place] [address] 14 Dec, 2012 [facility] [address] [facility] [id number], [place] [address] Jan, [facility] [id number], [place] [address] Dec, [facility] [id number], [place] [address] Dec, [facility] [id number], [place] [address] Dec, [facility] [id number] [place] [address]- [address] Sep, [facility] [id number] [place] [address]- [address]73 Sep, [facility] [id number] [place] [address]- [address]32 Aug, [facility] [id number] [place] [address]- 4[address] Oct, [facility] [id number] [place] [address]- 5526 Sep, [facility] [id number], [place] [address] Aug, [facility] [id number] [place] [address]- [address] Apr, [facility] [id number], [place] [address] Oct, IMMUNIZATIONS No Known Immunizations SOCIAL HISTORY Never Assessed REASON FOR VISIT right shoulder injection-CM BEARD F/U, States his injection of the right shoulder helpedNiurka Pierson RN PLAN OF CARE Activity Details Follow Up 8 weeks Reason: VITAL SIGNS Height 65 in 2018-02-10 Blood pressure systolic 138 mmHg 2018-02-10 Blood pressure diastolic 88 mmHg 2018-02-10 MEDICATIONS Unknown Medications RESULTS No Results PROCEDURES Procedure Date Ordered Result Body Site DRAIN/INJECT, JOINT/BURSA February 10, 2018 [facility] ESTABLISHED PATIENT February 10, 2018 DEPO MEDROL 80 MG/ML February 10, 2018 INSTRUCTIONS MEDICATIONS ADMINISTERED No Known Medications MEDICAL (GENERAL) HISTORY Type Description Date Medical History Acid Reflux Surgical History Left wrist Carpectomy - Ortho 4 States 04/2015 Surgical History Left Knee Replacement 04/2016 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
[2018-07-18] MEDS ORDERED: NS IV 500 ML 500 ML ONE ×2 (09:56→14:06)
--- OUTSIDE RECORDS SUMMARY | 2018-07-18 09:56 | XMS REPORT ---
Author Author HERMILA FERRARA Organization [facility] Address [address] [place] [address] Care Team Providers Care Motel Manager Name Role Phone HERMILA FERRARA Unavailable PROBLEMS Type Condition ICD9-CM Code [id number] Code Onset Dates Condition Status SNOMED Code Problem 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 syndrome G89.4 Active 543939756 Problem Other chronic pain G89.29 Active 69498906 Problem Other fatigue R53.83 Active 14979118 ALLERGIES No Known Allergies SOCIAL HISTORY Never Assessed PLAN OF CARE Activity Details Follow Up prn Reason: VITAL SIGNS Height 65 in 2016-12-28 Weight 154 lbs 2016-12-28 Temperature 98.2 degrees Fahrenheit 2016-12-28 Heart Rate 78 bpm 2016-12-28 Respiratory Rate 18 2016-12-28 BMI 25.62 kg/m2 2016-12-28 Blood pressure systolic 130 mmHg 2016-12-28 Blood pressure diastolic 84 mmHg 2016-12-28 MEDICATIONS Medication Instructions Dosage Frequency Start Date End Date Duration Status Aspirin Low Dose 81 mg take 1 tablet (81 mg) by oral route once daily Dec, Active RESULTS No Results PROCEDURES Procedure Date Ordered Result Body Site X-RAY EXAM OF KNEE, 3 Dec 28, 2016 [facility] VISIT ESTABLISHED PATIENT Dec 28, 2016 IMMUNIZATIONS No Known Immunizations MEDICAL (GENERAL) HISTORY Type Description Date Medical History Acid Reflux Surgical History Left wrist Carpectomy - Ortho 4 States 04/2015 Surgical History Left Knee Replacement 04/2016 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
--- OUTSIDE RECORDS SUMMARY | 2018-07-18 09:56 | XMS REPORT ---
Author Author HERMILA FERRARA [facility] Address [address] [place] [address] Care Team Providers Care Laboratory Technologist Name Role Phone HERMILA FERRARA Unavailable PROBLEMS Type Condition ICD9-CM Code [id number] Code Onset Dates Condition Status SNOMED Code Problem 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 syndrome G89.4 Active 937021036 Problem Other chronic pain G89.29 Active 99885705 Problem Other fatigue R53.83 Active 83367699 ALLERGIES No Known Allergies SOCIAL HISTORY No smoking Hx information available PLAN OF CARE VITAL SIGNS MEDICATIONS No Known Medications RESULTS No Results PROCEDURES Procedure Date Ordered Related Diagnosis Body Site FLUARIX QUAD P-FREE 3 AND UP .50 2015Nov 20, 2016 PCV 13 Nov 20, 2016 IMMUNIZATION ADMIN, EACH ADD (please include units) Nov 20, 2016 SINGLE IMMUNIZATION ADMIN Nov 20, 2016 IMMUNIZATIONS Vaccine Route Administration Date Status FLUARIX QUAD P-FREE 3 AND UP .50 2015 IM Intramuscular Nov 20, 2016 Administered PCV 13 IM Intramuscular Nov 20, 2016 Administered
--- OUTSIDE RECORDS SUMMARY | 2018-07-18 09:56 | XMS REPORT ---
Author Author HERMILA FERRARA Organization [employer] Address Unknown Phone Unavailable Care Team Providers Care Decision Unit Rn Name Role Phone HERMILA FERRARA CP Unavailable Allergies No Known Allergies Problems Problem Type Condition Code Onset Dates Condition Status Problem Screening for lipoid disorders V77.91 Active Problem Need for prophylactic vaccination and inoculation, Influenza V04.81 Active Problem Other malaise and fatigue 780.79 Active Problem Unspecified viral hepatitis C without hepatic coma 070.70 Active Problem Pain in joint, lower leg 719.46 Active Problem Other seborrheic keratosis 702.19 Active Problem Pain in joint, forearm 719.43 Active Problem Pain in joint, shoulder region 719.41 Active Medications No Known Medications Results No Known Results Summary Purpose [employer] Submission
--- OUTSIDE RECORDS SUMMARY | 2018-07-18 09:56 | XMS REPORT ---
Author Author HERMILA FERRARA Organization [employer] Address Unknown Phone Unavailable Care Team Providers Care Shearer Helper Name Role Phone HERMILA FERRARA CP Unavailable [...] in joint, shoulder region 719.41 Active Medications Medication Code System Code Instructions Start Date End Date Status Dosage Vicoprofen [facility] [address]-60 7.5-200 MG January 17, 2015 1 Tablet by Oral route PRN 2 in AM and PM and 1 at noon Results No Known Results Summary Purpose [employer] Submission
--- OUTSIDE RECORDS SUMMARY | 2018-07-18 09:56 | XMS REPORT ---
Author Author HERMILA FERRARA Organization [employer] Address Unknown Phone Unavailable Care Team Providers Care Mailroom Assistant Name Role Phone HERMILA FERRARA CP Unavailable Allergies No Known Allergies Problems Problem Type Condition ICD-9 Code Onset Dates Condition Status Problem Screening [...] Start Date End Date Status Dosage Vicoprofen [facility] [address]-97 7.5-200 MG January 17, 2015 1 Tablet by Oral route 3 times per day PRN 2 in AM and PM and 1 at noon Results No Known Results Summary Purpose [employer] Submission
--- OUTSIDE RECORDS SUMMARY | 2018-07-18 09:56 | XMS REPORT ---
Author Author HERMILA FERRARA Organization [employer] Address Unknown Phone Unavailable Care Team Providers Care Field Superintendent Name Role Phone HERMILA FERRARA CP Unavailable [...] Start Date End Date Status Dosage Vicoprofen [facility] [address]-56 7.5-200 MG January 17, 2015 1 Tablet by Oral route PRN 2 in AM and PM and 1 at noon Results No Known Results Summary Purpose [employer] Submission
--- OUTSIDE RECORDS SUMMARY | 2018-07-18 09:56 | XMS REPORT ---
Author Author HERMILA FERRARA Organization [employer] Address Unknown Phone Unavailable Care Team Providers Care Code Machine Operator Name Role Phone HERMILA FERRARA CP Unavailable [...] Date End Date Status Dosage Vicoprofen [facility] [address]-12 7.5-200 MG January 17, 2015 1 Tablet by Oral route PRN 2 in AM and PM and 1 at noon Results No Known Results Summary Purpose [employer] Submission
--- OUTSIDE RECORDS SUMMARY | 2018-07-18 09:56 | XMS REPORT ---
Author Author [facility] Address [address] [place] [address] Care Team Providers Care Design Center Consultant Name Role Phone SHERRY SQUIRES Unavailable PROBLEMS Type Condition ICD9-CM Code [id number] Code Onset Dates Condition Status SNOMED Code Problem 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 syndrome G89.4 Active 312087714 Problem Other chronic pain G89.29 Active 95755054 Problem Other fatigue R53.83 Active 66653430 ALLERGIES No Known Allergies SOCIAL HISTORY Never Assessed PLAN OF CARE Activity Details Follow Up prn Reason: VITAL SIGNS Height 65 in 2017-03-09 Weight 154.0 lbs 2017-03-09 Temperature 98.8 degrees Fahrenheit 2017-03-09 Heart Rate 82 bpm 2017-03-09 Respiratory Rate 20 2017-03-09 Oximetry 95 % 2017-03-09 BMI 25.62 kg/m2 2017-03-09 Blood pressure systolic 138 mmHg 2017-03-09 Blood pressure diastolic 82 mmHg 2017-03-09 MEDICATIONS Medication Instructions Dosage Frequency Start Date End Date Duration Status Doxycycline Hyclate 100 MG Orally every 12 hrs 1 capsule 12h March, March, 14 days Active Aspirin Low Dose 81 mg take 1 tablet (81 mg) by oral route once daily Dec, Active RESULTS Name Result Date Reference Range CBC 2017-03-09 WBC 8.7 3.4-10.8 RBC 4.95 4.14-5.80 Hemoglobin 15.4 12.6-17.7 Hematocrit 45.1 37.5-51.0 MCV 91 79-97 MCH 31.1 26.6-33.0 MCHC 34.1 31.5-35.7 RDW 13.3 12.3-15.4 Platelets 349 150-379 Neutrophils 56 Lymphs 37 Monocytes 6 Eos 1 Basos 0 Immature Cells Neutrophils (Absolute) 4.8 1.4-7.0 Lymphs (Absolute) 3.2 0.7-3.1 Monocytes(Absolute) 0.6 0.1-0.9 Eos (Absolute) 0.1 0.0-0.4 Baso (Absolute) 0.0 0.0-0.2 Immature Granulocytes 0 Immature Grans (Abs) 0.0 0.0-0.1 NR Hematology Comments: CMP 2017-03-09 Glucose, Serum 97 65-99 BUN 12 8-27 Creatinine, Serum 0.75 0.76-1.27 eGFR If NonAfricn Am 98 >59 eGFR If Africn Am 113 >59 BUN/Creatinine Ratio 16 10-24 Sodium, Serum 139 134-144 Potassium, Serum 4.4 3.5-5.2 Chloride, Serum 102 96-106 Carbon Dioxide, Total 23 18-29 Calcium, Serum 9.5 8.6-10.2 Protein, Total, Serum 7.6 6.0-8.5 Albumin, Serum 4.7 3.6-4.8 Globulin, Total 2.9 1.5-4.5 A/G Ratio 1.6 1.2-2.2 Bilirubin, Total 0.3 0.0-1.2 Alkaline Phosphatase, S 78 39-117 AST (SGOT) 13 0-40 ALT (SGPT) 9 0-44 PROCEDURES Procedure Date Ordered Result Body Site MEASURE BLOOD OXYGEN LEVEL March 09, 2017 VENIPUNCT, ROUTINE* March 09, 2017 [facility] VISIT ESTABLISHED PATIENT March 09, 2017 LAB NOT BILLED BY [facility] March 09, 2017 IMMUNIZATIONS No Known Immunizations MEDICAL (GENERAL) HISTORY Type Description Date Medical History Acid Reflux Surgical History Left wrist Carpectomy - Ortho 4 States 04/2015 Surgical History Left Knee Replacement 04/2016 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
--- OUTSIDE RECORDS SUMMARY | 2018-07-18 09:56 | XMS REPORT ---
Author Author HERMILA FERRARA Organization [employer] Address Unknown Phone Unavailable Care Team Providers Care Records And Information Manager Name Role Phone HERMILA FERRARA CP Unavailable [...]
--- OUTSIDE RECORDS SUMMARY | 2018-07-18 09:56 | XMS REPORT ---
Author Author HERMILA FERRARA Organization [employer] Address Unknown Phone Unavailable Care Team Providers Care Television Camera Operator Name Role Phone HERMILA FERRARA CP [...]
--- OUTSIDE RECORDS SUMMARY | 2018-07-18 09:56 | XMS REPORT ---
Author Author HERMILA FERRARA Organization [employer] Address Unknown Phone Unavailable Care Team Providers Care General Merchandise Salesperson Name Role Phone HERMILA FERRARA CP Unavailable Allergies, Adverse Reactions, Alerts Substance Reaction Event Type N.K.D.A. Info Not Available Non Drug Allergy Problems Problem Type Condition Code Onset Dates Condition Status Problem Screening for lipoid disorders V77.91 Active Assessment Seborrheic keratosis L82.1 Active Problem Need for prophylactic vaccination and [...] Instructions Start Date End Date Status Dosage Oxycodone-Acetaminophen [facility] [address]-72 5-325 MG Orally every 6 hrs 1 tablet as needed Aspirin Low Dose [facility] [address]-11 81 mg Dec 27, 2013 take 1 tablet (81 mg) by oral route once daily Procedures Procedure Coding System Code Date [facility] VISIT ESTABLISHED PATIENT CPT-4 G0467 May 14, 2016 Office Visit, Est Pt., Level 3 CPT-4 97119 May 14, 2016 CRYOTHERAPY OF SKIN CPT-4 45778 May 14, 2016 Vital Signs Date/Time: May 14, 2016 Cardiac Monitoring Heart Rate 88 bpm Weight 147.3 lbs Height 65 in BMI 24.51 Index Blood Pressure Diastolic 76 mmHg Blood Pressure Systolic 122 mmHg Results No Known Results Summary Purpose [employer] Submission
--- OUTSIDE RECORDS SUMMARY | 2018-07-18 09:56 | XMS REPORT ---
Author Author HERMILA FERRARA Organization [facility] Address [address] [place] [address] Care Team Providers Care Csm Consultant Name Role Phone HERMILA FERRARA Unavailable PROBLEMS Type Condition ICD9-CM Code VER48-HE Code Onset Dates Condition Status SNOMED Code Problem Other fatigue R53.83 Active 44383902 Problem 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 syndrome G89.4 Active 590376096 Problem Other chronic pain G89.29 Active 23464151 Problem Lumbago with sciatica, right side M54.41 Active 095283645 Problem Lumbago with sciatica, left side M54.42 Active 831901203 Problem Incomplete rotator cuff tear or rupture of right shoulder, not specified as traumatic M75.111 Active 9055238531751745 Problem Other chronic pain G89.29 Active 25197956 Problem Rotator cuff syndrome of right shoulder M75.101 Active 776756209927182 Problem Degenerative tear of glenoid labrum of right shoulder M24.111 Active 496497146 ALLERGIES No Known Allergies ENCOUNTERS Encounter Location Date Diagnosis [place] [id number] [address] May, [facility] [address] [address] Feb, Lumbago with sciatica, right side M54.41 ; Lumbago with sciatica, left side M54.42 ; Other chronic pain G89.29 and Elevated BP without diagnosis of hypertension R03.0 [facility] [address] [address] Feb, Rotator cuff syndrome of right shoulder M75.101 [facility] [address] [place] [id number] [place] [address]79- 6262 Dec, Incomplete rotator cuff tear or rupture of right shoulder, not specified as traumatic M75.111 and Degenerative tear of glenoid labrum of right shoulder M24.111 [place] [address] [address] Nov, Pain in right shoulder M25.511 ; Other chronic pain G89.29 and Cough R05 [place] [address] [address]- [address] Nov, Acute midline low back pain without sciatica M54.5 [place] [address] [address]- [address] 16 Aug, 2017 Rash R21 [facility] [place] [address] [address] Jun, LLQ abdominal pain R10.32 and Diverticulitis of large intestine without bleeding, unspecified complication status K57.32 [place] [address] [address] Apr, 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 syndrome G89.4 [place] [address] [address]- 88[address] Apr, Seborrheic keratosis L82.1 [place] [address] [address]- [address] March, Parotid gland enlargement K11.1 [facility] [place] [address] [address] March, Tick bite, initial encounter W57.XXXA [place] [address] [address]- [address] March, [place] [address] [address]- 47[address] Feb, Preop testing Z01.818 [place] [address] [address]- 8[address] Feb, Screening, lipid Z13.220 [place] [address] [place] [address] Feb, 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 syndrome G89.4 [facility] [address] [address]- 3491 16 Jan, 2017 Chondromalacia, right knee M94.261 [facility] [address] [place] [id number] [place] [address] 53328- 7232 20 Dec, 2016 Pain in right knee M25.561 ; Other chronic pain G89.29 ; Parotid gland enlargement K11.1 and Screening, lipid Z13.220 [place] [address] [place] [id number] [place] [address] 00726- 2505 Nov, Encounter for immunization Z23 [place] [address] [address]- 6795 Jun, 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 syndrome G89.4 [place] [address] 46634- 7391 May, 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 syndrome G89.4 and 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 [place] [address] [place] [id number] [place] [address] 39793- 6880 May, [place] [address] 80[address]- 5168 May, Seborrheic keratosis L82.1 [facility] [address] [place] [id number] [place] [address] 68041- 0447 March, [facility] [address] [place] [id number] [place] [address] 74002- 4646 Feb, [facility] [address] [place] [id number] [place] [address] 30599- 4248 Jan, [facility] [address] [place] [id number] [place] [address] 52799- 9342 Jan, 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 syndrome G89.4 and care home current use of opiate analgesic Z79.891 [place] [address] [address]36- 1162 Jan, 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 syndrome G89.4 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 Z79.891 [facility] [address] [place] [id number] [place] [address] 94891- 9066 Dec, [facility] [address] [place] [id number] [place] [address] 12816- 6526 Dec, Knee pain M25.569 [facility] [address] [place] [id number] [place] [address] 84819- 2198 Nov, [facility] [address] [place] [id number] [place] [address] 86114- 0205 Oct, [facility] [address] [place] [id number] [place] [address] 77190- 4513 Oct, [facility] [address] [place] [id number] [place] [address] 57699- 3061 Sep, [facility] [address] [place] [id number] [place] [address] 82840- 6805 Aug, [facility] [address] [place] [id number] [place] [address] 18591- 2730 Aug, [facility] [address] [place] [id number] [place] [address] 54892- 4260 Jul, [facility] [address] [place] [id number] [place] [address] 20363- 9816 Jul, No condition on Beach I V71.09 and No condition on [place] II V71.09 [facility] [id number] [place] [address] 61166 254 Jul, [facility] [address] [place] [id number] [place] [address] 95575 2546 Jul, [facility] [address] [place] [id number] [place] [address] 13981- 2546 Jul, [facility] [address] [place] [id number] [place] [address] 77141- 9936 Jun, [facility] [place] [facility] [address] [id number] [place] [address]- 5045 Jun, [facility] [place] [facility] [address] [id number] [place] [address]- 2028 May, [facility] [place] [facility] [address] [id number] [place] [address]- 7802 May, [facility] [place] [facility] [address] [id number] [place] [address]- 2218 Apr, [facility] [place] [facility] [address] [id number] [place] [address]- 6704 Apr, [facility] [place] [facility] [address] [id number] [place] [address]- 5570 March, [facility] [place] [facility] [address] [id number] [place] [address]- 4004 Feb, [facility] [place] [facility] [address] [id number] [place] [address]- 4621 Feb, [facility] [place] [facility] [address] [id number] [place] [address]- 2651 Jan, [facility] [place] [facility] [address] [id number] [place] [address]- 3605 Jan, [facility] [place] [facility] [address] [id number] [place] [address]- 0220 Jan, [facility] [place] [facility] [address] [id number] [place] [address]- 0683 24 Jan, 2015 [facility] [place] [facility] [address] [id number] [place] [address]- 3614 Jan, [facility] [place] [facility] [address] [id number] [place] [address]- 2665 17 Jan, 2015 [facility] [place] [facility] [address] [id number] [place] [address]- 8843 16 Jan, 2015 [facility] [place] [facility] [address] [id number] [place] [address]- 6131 Jan, [facility] [place] [facility] [address] [id number] [place] [address]- 1735 Jan, [facility] [place] [facility] [address] [id number] [place] [address]- 3856 Dec, [facility] [place] [facility] [address] [id number] [place] [address]- 8576 Dec, 2014 [facility] [place] [facility] [address] [id number] [place] [address]- 2549 Dec, [facility] [place] [facility] [address] [id number] [place] [address]- 3869 Dec, [facility] [place] [facility] [address] [id number] [place] [address]- 0921 Dec, [facility] [place] [facility] [address] [id number] [place] [address]- 5713 Dec, [facility] [place] [facility] [address] [id number] [place] [address]- 4222 Nov, [facility] [place] [facility] [address] [id number] [place] [address]- 8242 Nov, [facility] [place] [facility] [address] [facility] [id number] [place] [address]- 1655 Nov, [facility] [place] [facility] [address] [id number] [place] [address]- 9625 Nov, [facility] [place] [facility] [address] [id number] [place] [address]- 2545 Nov, [facility] [place] [facility] [address] [id number] [place] [address]- 7355 Nov, [facility] [place] [facility] [address] [id number] [place] [address]- 8424 Nov, [facility] [place] [facility] [address] [id number] [place] [address]- 2660 Nov, [facility] [place] [facility] [address] [id number] [place] [address]- 5827 Nov, [facility] [place] [facility] [address] [id number] [place] [address]- 5588 Oct, [facility] [place] [facility] [address] [id number] [place] [address]- 4923 18 Oct, 2014 [facility] [place] [facility] [address] [id number] [place] [address]- 6714 Oct, [facility] [place] [facility] [address] [id number] [place] [address]- 8269 Oct, [facility] [place] [facility] [address] [id number] [place] [address]- 2370 16 Oct, 2014 [facility] [place] [facility] [address] [id number] [place] [address]- 2881 Oct, [facility] [place] [facility] [address] [id number] [place] [address]- 1028 Sep, [facility] [place] [facility] [address] [id number] [place] [address]- 7929 Sep, [facility] [place] [facility] [address] [id number] [place] [address]- 1419 Sep, [facility] [place] [facility] [address] [id number] [place] [address]- 4698 Sep, [facility] [place] [facility] [address] [id number] [place] [address]- 5966 18 Sep, 2014 [facility] [place] [facility] [address] [id number] [place] [address]- 4833 17 Sep, 2014 [facility] [place] [facility] [address] [id number] [place] [address]- 9119 17 Sep, 2014 [facility] [place] [facility] [address] [id number] [place] [address]- 9262 17 Sep, 2014 [facility] [place] [facility] [address] [id number] [place] [address]- 4357 Sep, [facility] [place] [facility] [address] [id number] [place] [address]- 1625 Sep, [facility] [place] [facility] [address] [id number] [place] [address]- 9862 Sep, [facility] [place] [facility] [address] [id number] [place] [address]- 9721 Sep, [facility] [place] [facility] [address] [id number] [place] [address]- 5713 Sep, [facility] [place] [facility] [address] [id number] [place] [address]- 6246 Sep, [facility] [place] [facility] [address] [id number] [place] [address]- 6441 Aug, [facility] [place] [facility] [address] [id number] [place] [address]- 3069 Aug, [facility] [place] [facility] [address] [id number] [place] [address]- 4003 Aug, [facility] [place] [facility] [address] [id number] [place] [address]- 9018 Aug, [facility] [place] [facility] [address] [id number] [place] [address]- 6013 Aug, [facility] [place] [facility] [address] [id number] [place] [address]- 2894 Aug, [facility] [place] [facility] [address] [id number], [place] [address]- 5030 Aug, [facility] [place] [facility] [address] [id number] [place] [address]- 3520 Aug, [facility] [place] [facility] [address] [id number], [place] [address]- 4478 Aug, [facility] [place] [facility] [address] [id number], [place] [address]- 0153 24 Jul, 2014 [facility] [place] [facility] [address] [id number] [place] [address]- 7592 24 Jul, 2013 [facility] [place] [facility] [address] [id number] [place] [address] 2546 15 Jul, 2013 [facility] [place] [facility] [address] [id number] [place] [address] 2546 15 Jul, 2013 [facility] [place] [facility] [address] [id number] [place] [address] 2546 11 Jul, 2013 [facility] [place] [facility] [address] [id number] [place] [address] 2544 11 Jul, 2013 [facility] [place] [facility] [address] [id number] [place] [address]- 1856 Jul, 2013 [facility] [place] [facility] [address] [id number] [place] [address]- 0472 Jul, 2013 [facility] [place] [facility] [address] [id number] [place] [address]- 3826 Jun, [facility] [place] [facility] [address] [id number] [place] [address]- 3395 Jun, [facility] [place] [facility] [address] [id number] [place] [address]- 2542 Jun, [facility] [place] [facility] [address] [id number] [place] [address] 2547 Jun, [facility] [place] [facility] [address] [id number] [place] [address]- 2544 Jun, [facility] [place] [facility] [address] [id number] [place] [address] 2549 Jun, [facility] [place] [facility] [address] [id number] [place] [address] 2546 Jun, [facility] [place] [facility] [address] [id number] [place] [address]- 2542 Jun, [facility] [place] [facility] [address] [id number] [place] [address]- 1047 Jun, [facility] [place] [facility] [address] [id number] [place] [address]- 6554 Jun, [facility] [place] [facility] [address] [id number] [place] [address]- 8546 May, [facility] [place] [facility] [address] [id number] [place] [address]- 6586 May, [facility] [place] [facility] [address] [id number] [place] [address]- 2854 May, [facility] [place] [facility] [address] [id number] [place] [address]- 9826 May, [facility] [place] [facility] [address] [id number] [place] [address]- 8865 May, [facility] [place] [facility] [address] [id number] [place] [address]- 4291 May, [facility] [place] [facility] [address] [id number] [place] [address]- 6019 May, [facility] [place] [facility] [address] [id number] [place] [address]- 4161 May, [facility] [place] [facility] [address] [id number] [place] [address]- 8842 May, [facility] [place] [facility] [address] [id number] [place] [address]- 4277 May, [facility] [place] [facility] [address] [id number] [place] [address]- 7573 Apr, [facility] [place] [facility] [address] [id number] [place] [address]- 9613 Apr, [facility] [place] [facility] [address] [id number] [place] [address]- 0742 Apr, [facility] [place] [facility] [address] [id number] [place] [address]- 3202 Apr, [facility] [place] [facility] [address] [id number] [place] [address]- 0393 09 Apr, 2014 [facility] [place] [facility] [address] [id number] [place] [address]- 2807 Apr, [facility] [place] [facility] [address] [id number] [place] [address]- 8821 Apr, [facility] [place] [facility] [address] [id number] [place] [address]- 0509 Apr, [facility] [place] [facility] [address] [id number] [place] [address]- 7983 March, [facility] [place] [facility] [address] [id number] [place] [address]- 5237 March, [facility] [place] [facility] [address] [id number] [place] [address]- 7604 Feb, [facility] [place] [facility] [address] [id number] [place] [address]- 4918 Feb, [facility] [place] [facility] [address] [id number] [place] [address]- 5845 Feb, [facility] [place] [facility] [address] [id number] [place] [address]- 5259 Feb, [facility] [place] [facility] [address] [id number] [place] [address]- 4847 Feb, [facility] [place] [facility] [address] [id number] [place] [address]- 8080 Jan, [facility] [place] [facility] [address] [id number] [place] [address]- 8833 19 Jan, 2014 [facility] [place] [facility] [address] [id number] [place] [address]- 6789 17 Jan, 2014 [facility] [place] [facility] [address] [id number] [place] [address]- 4534 17 Jan, 2014 [facility] [place] [facility] [address] [id number] [place] [address]- 8525 14 Jan, 2014 [facility] [place] [facility] [address] [id number] [place] [address]- 2379 14 Jan, 2014 [facility] [place] [facility] [address] [id number] [place] [address]- 4245 14 Jan, 2014 [facility] [place] [facility] [address] [id number] [place] [address]- 7987 14 Jan, 2014 [facility] [place] [facility] [address] [id number] [place] [address]- 9562 Dec, [facility] [place] [facility] [address] [id number] [place] [address]- 6993 Dec, [facility] [place] [facility] [address] [id number] [place] [address]- 5155 Dec, [facility] [place] [facility] [address] [id number] [place] [address]- 6686 Dec, [facility] [place] [facility] [address] [id number] [place] [address]- 1741 Dec, [facility] [place] [facility] [address] [id number] [place] [address]- 0087 Dec, [facility] [place] [facility] [address] [id number] [place] [address]- 9477 Dec, [facility] [place] [facility] [address] [id number] [place] [address]- 5674 Dec, [facility] [place] [facility] [address] [id number] [place] [address]- 3843 Nov, [facility] [place] [facility] [address] [id number] [place] [address]- 2487 Nov, [facility] [place] [facility] [address] [id number] [place] [address]- 9034 Nov, [facility] [place] [facility] [address] [id number] [place] [address]- 4944 Nov, [facility] [place] [facility] [address] [id number] [place] [address]- 8060 08 Nov, 2013 [facility] [address] [id number] [place] [address]- 7515 08 Nov, 2013 [facility] [place] [facility] [address] [id number] [place] [address]- 8457 07 Nov, 2013 [facility] [address] [id number] [place] [address]- 1803 Oct, [facility] [place] [facility] [address] [id number] [place] [address]- 5474 Oct, [facility] [address] [id number] [place] 3642 Oct, [facility] [place] [facility] [address] [id number] [place] [address]- 4774 Oct, [facility] [address] [id number] [place] [address]- 1007 Oct, [facility] [place] [facility] [address] [id number] [place] [address]- 6692 Oct, [facility] [place] [facility] [address] [id number] [place] [address]- 4944 Oct, [facility] [place] [facility] [address] [facility] [id number] [place] [address]- 2373 02 Oct, 2013 [facility] [place] [facility] [address] [id number] [place] [address]- 6058 Sep, [facility] [place] [facility] [address] [id number] [place] [address]- 9804 Sep, [facility] [place] [facility] [address] [id number] [place] [address]- 6433 14 Aug, 2013 [facility] [place] [facility] [address] [id number] [place] [address]- 5368 14 Aug, 2013 [facility] [place] [facility] [address] [id number] [place] [address]- 4231 Aug, [facility] [place] [facility] [address] [id number] [place] [address]- 7700 Aug, [facility] [address] [id number] [place] [address]- 8820 27 Jul, 2013 [facility] [place] [facility] [address] [id number] [place] [address] 26 Jul, 2013 [facility] [place] [facility] [address] [id number] [place] [address] 17 Jul, 2013 [facility] [address] [id number] [place] [address] 16 Jul, 2013 [facility] [place] [facility] [address] [id number] [place] [address] Jun, [facility] [address] [id number] [place] [address] Jun, [facility] [address] [id number] [place] [address] Jun, [facility] [address] [id number] [place] [address] Feb, [facility] [address] [id number] [place] [address] Jan, [facility] [place] [facility] [address] [id number] [place] [address] Dec, [facility] [place] [facility] [address] [id number], [place] [address] Dec, [facility] [place] [facility] [address] [id number] [place] [address] Dec, [facility] [place] [facility] [address] [id number] [place] [address] Jan, [facility] [place] [facility] [address] [id number] [place] [address] Dec, [facility] [address] [id number], [place] [address] Dec, [facility] [address] [id number] [address] Dec, [facility] [id number] [address] Sep, [facility] [id number], [place] [address] Sep, [facility] [id number], [place] [address] Aug, [facility] [id number] [address] Oct, [facility] [id number], [place] [address] Sep, [facility] [id number], [place] [address] Aug, [facility] [id number], [place] [address] Apr, [facility] [id number] [address] Oct, IMMUNIZATIONS No Known Immunizations SOCIAL HISTORY Never Assessed REASON FOR VISIT back/Right shoulder pain-[facility] [employer] PLAN OF CARE Activity Details Follow Up 4 Weeks Reason:chronic pain VITAL SIGNS Height 65 in 2017-11-15 Weight 164.7 lbs 2017-11-15 Temperature 98.6 degrees Fahrenheit 2017-11-15 Heart Rate 76 bpm 2017-11-15 Respiratory Rate 18 2017-11-15 BMI 27.40 kg/m2 2017-11-15 Blood pressure systolic 108 mmHg 2017-11-15 Blood pressure diastolic 70 mmHg 2017-11-15 MEDICATIONS Medication Instructions Dosage Frequency Start Date End Date Duration Status Cyclobenzaprine HCl 10 mg Orally Three times a day 1 tablet as needed 8h Nov, Nov, 10 days Active Hydrocodone-Acetaminophen 7.5-325 MG Orally every 6 hrs 1 tablet as needed 6h Nov, Active Aspirin Low Dose 81 mg take 1 tablet (81 mg) by oral route once daily Dec, Active Triamcinolone Acetonide 0.5 % Externally Twice a day 1 application to affected area 12h Aug, Active RESULTS No Results PROCEDURES Procedure Date Ordered Result Body Site [facility] VISIT ESTABLISHED PATIENT Nov 15, 2017 INSTRUCTIONS MEDICATIONS ADMINISTERED No Known Medications MEDICAL (GENERAL) HISTORY Type Description Date Medical History Acid Reflux Surgical History Left wrist Carpectomy - Ortho 4 States 04/2015 Surgical History Left Knee Replacement 04/2016 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
--- OUTSIDE RECORDS SUMMARY | 2018-07-18 09:56 | XMS REPORT ---
Author Author HERMILA FERRARA Organization [employer] Address Unknown Phone Unavailable Care Team Providers Care Career Development Engineer Name Role Phone HERMILA FERRARA CP Unavailable [...]
--- OUTSIDE RECORDS SUMMARY | 2018-07-18 09:57 | XMS REPORT ---
Author Author HERMILA FERRARA Organization [employer] Address Unknown Phone Unavailable Care Team Providers Care Trauma Registrar Name Role Phone HERMILA FERRARA CP Unavailable Allergies, Adverse Reactions, Alerts Substance Reaction Event Type N.K.D.A. Info Not Available Non Drug Allergy Problems Problem Type Condition Code Onset Dates Condition Status Assessment 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 Active Problem Screening for lipoid disorders V77.91 Active Assessment 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 syndrome G89.4 Active Problem Need for prophylactic vaccination and [...] Instructions Start Date End Date Status Dosage Aspirin Low Dose [facility] [address]-12 81 mg Dec 27, 2013 take 1 tablet (81 mg) by oral route once daily Procedures Procedure Coding System Code Date [facility] VISIT ESTABLISHED PATIENT CPT-4 G0467 June 02, 2016 Office Visit, Est Pt., Level 3 CPT-4 06011 June 02, 2016 No Charge CPT-4 89482 June 02, 2016 Vital Signs Date/Time: June 02, 2016 Cardiac Monitoring Heart Rate 92 bpm Weight 152.4 lbs Height 65 in BMI 25.36 Index Blood Pressure Diastolic 86 mmHg Blood Pressure Systolic 152 mmHg Results No Known Results Summary Purpose [employer] Submission
--- OUTSIDE RECORDS SUMMARY | 2018-07-18 09:57 | XMS REPORT ---
Author Author HERMILA FERRARA Organization [facility] Address [address] [place] [address] Care Team Providers Care Coin Collector Name Role Phone HERMILA FERRARA Unavailable PROBLEMS Type Condition ICD9-CM Code SQW24-HI Code Onset Dates Condition Status SNOMED Code Problem Incomplete rotator cuff tear or rupture of right shoulder, not specified as traumatic M75.111 Active [id number] Problem Degenerative tear of glenoid labrum of right shoulder M24.111 Active 857994342 Problem Other chronic pain G89.29 Active 01179864 Problem Other fatigue R53.83 Active 84121552 Problem Other chronic pain G89.29 Active 84180726 Problem 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 syndrome G89.4 Active [id number] ALLERGIES No Known Allergies ENCOUNTERS Encounter Location Date Diagnosis [facility] [id number] [place] [address]8076- 3207 Feb, [facility] [address] [address]- [address] Dec, Incomplete rotator cuff tear or rupture of right shoulder, not specified as traumatic M75.111 and Degenerative tear of glenoid labrum of right shoulder M24.111 [facility] [id number] [place] [address] 53172- 2887 Nov, Pain in right shoulder M25.511 ; Other chronic pain G89.29 and Cough R05 [facility] [id number] [place] [address] 74203- 6152 Nov, Acute midline low back pain without sciatica M54.5 [facility] [id number] [place] [address] 10682- 2185 Aug, Rash R21 [facility] [address] [address] Jun, LLQ abdominal pain R10.32 and Diverticulitis of large intestine without bleeding, unspecified complication status K57.32 [place] [address] [address]14- 4435 Apr, 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 syndrome G89.4 [place] [address] 37495- 0103 Apr, Seborrheic keratosis L82.1 [place] [address] 87109- 8765 March, Parotid gland enlargement K11.1 [facility] [place] [address] [address] March, Tick bite, initial encounter W57.XXXA [place] [address] 78026- 7498 March, [place] [address] 9[address]28- 1011 Feb, Preop testing Z01.818 [place] [address] 96113- 3898 Feb, Screening, lipid Z13.220 [place] [address] 75116- 3671 Feb, 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 syndrome G89.4 [place] [address] 88513- 6728 Jan, Chondromalacia, right knee M94.261 [place] [address] 75465- 7481 Dec, Pain in right knee M25.561 ; Other chronic pain G89.29 ; Parotid gland enlargement K11.1 and Screening, lipid Z13.220 [place] [id number] [place] [address] 42091- 8084 Nov, Encounter for immunization Z23 [place] [address] [address] 2289 Jun, 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 syndrome G89.4 [facility] [id number] [place] [address] 80181- 4986 May, 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 syndrome G89.4 and 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 [facility] [id number] [place] [address] 39101- 4016 May, [facility] [id number] [place] [address] 07366- 8449 May, Seborrheic keratosis L82.1 [facility] [id number] [place] [address] 56134- 6407 March, [facility] [id number] [place] [address] 30693- 2548 Feb, [facility] [id number] [place] [address] 62597- 7530 Jan, [facility] [id number] [place] [address] 48364- 6716 Jan, 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 syndrome G89.4 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 [facility] [address] [address] 3274 Jan, 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 syndrome G89.4 and nursing home current use of opiate analgesic Z79.891 [facility] [address] [address]- 5786 Dec, [facility] [id number] [place] [address] 41113- 4425 Dec, Knee pain M25.569 [facility] [id number] [place] [address] 45609- 6839 Nov, [facility] [address] [address]- 0720 Oct, [facility] [address] [id number] [place] [address]- 9600 Oct, [facility] [place] [facility] [address] [id number] [place] [address]- 9388 Sep, [facility] [place] [facility] [address] [facility] [id number] [place] [address]- 4583 Aug, [facility] [place] [facility] [address] [facility] [id number] [place] [address]- 5012 Aug, [facility] [place] [facility] [address] [facility] [id number] [place] [address]- 7491 Jul, [facility] [place] [facility] [id number] [place] [address]- 7072 Jul, No condition on Leona I V71.09 and No condition on Leona II V71.09 [facility] [place] [facility] [address] [id number] [place] [address]- 5577 Jul, [facility] [place] [facility] [address] [facility] [id number] [place] [address]- 3974 Jul, [facility] [place] [facility] [address] [id number] [place] [address]- 2819 Jul, [facility] [place] [facility] [address] [id number] [place] [address]- 8818 Jun, [facility] [place] [facility] [address] [id number] [place] [address]- 4742 Jun, [facility] [place] [facility] [address] [facility] [id number] [address]- 1974 May, [facility] [place] [facility] [address] [facility] [id number] [place] [address]- 9653 May, [facility] [place] [facility] [address] [facility] [id number] [place] 7179 Apr, [facility] [place] [facility] [address] [facility] [id number] [place] 2872 Apr, [facility] [place] [facility] [address] [id number] [place] [address]- 2165 March, [facility] [place] [facility] [address] [id number] [place] [address]- 5761 14 Feb, 2015 [facility] [place] [facility] [address] [id number] [place] [address]- 0136 Feb, [facility] [place] [facility] [address] [id number] [place] [address]- 1352 Jan, [facility] [place] [facility] [address] [id number] [place] [address]- 4395 Jan, [facility] [place] [facility] [address] [id number] [place] [address]- 7390 Jan, [facility] [place] [facility] [address] [id number] [place] [address]- 2228 Jan, [facility] [place] [facility] [address] [id number] [place] [address]- 6581 Jan, [facility] [place] [facility] [address] [id number] [place] [address]- 4096 17 Jan, 2015 [facility] [place] [facility] [address] [id number] [place] [address]- 7200 Jan, [facility] [place] [facility] [address] [id number] [place] [address]- 3794 Jan, [facility] [place] [facility] [address] [id number] [place] [address]- 9333 Jan, [facility] [place] [facility] [address] [id number] [place] [address]- 0739 Dec, [facility] [place] [facility] [address] [id number] [place] [address]- 2214 Dec, [facility] [place] [facility] [address] [id number] [place] [address]- 9566 Dec, [facility] [place] [facility] [address] [id number] [place] [address]- 3634 Dec, [facility] [place] [facility] [address] [id number] [place] [address]- 4518 Dec, [facility] [place] [facility] [address] [id number] [place] [address]- 7014 Dec, [facility] [place] [facility] [address] [id number] [place] [address]- 0218 Nov, [facility] [place] [facility] [address] [id number] [place] [address]- 1502 Nov, [facility] [place] [facility] [address] [id number] [place] [address]- 5955 Nov, [facility] [place] [facility] [address] [id number] [place] [address]- 6533 Nov, [facility] [place] [facility] [address] [id number] [place] [address]- 3119 Nov, [facility] [place] [facility] [address] [id number] [place] [address]- 9184 Nov, [facility] [place] [facility] [address] [id number] [place] [address]- 8966 Nov, [facility] [place] [facility] [address] [id number] [place] [address]- 8660 Nov, [facility] [place] [facility] [address] [id number] [place] [address]- 3628 Nov, [facility] [place] [facility] [address] [id number] [address]- 1423 Oct, [facility] [place] [facility] [address] [id number] [place] [address]- 2215 Oct, [facility] [place] [facility] [address] [id number] [place] [address]- 3887 Oct, [facility] [place] [facility] [address] [id number] [place] [address]- 3444 Oct, [facility] [place] [facility] [address] [id number] [place] [address]- 4148 16 Oct, 2014 [facility] [place] [facility] [address] [id number] [place] [address]- 7317 16 Oct, 2014 [facility] [place] [facility] [address] [id number] [place] [address]- 9770 Sep, [facility] [place] [facility] [address] [id number] [place] [address]- 1549 Sep, [facility] [place] [facility] [address] [id number] [place] [address]- 8856 Sep, [facility] [place] [facility] [address] [id number] [place] [address]- 0164 Sep, [facility] [place] [facility] [address] [id number] [place] [address]- 4683 Sep, [facility] [place] [facility] [address] [id number] [place] [address]- 4914 Sep, [facility] [place] [facility] [address] [id number] [place] [address]- 5673 Sep, [facility] [place] [facility] [address] [id number] [place] [address]- 9895 Sep, [facility] [place] [facility] [address] [id number] [place] [address]- 1315 Sep, [facility] [place] [facility] [address] [id number] [place] [address]- 1492 Sep, [facility] [place] [facility] [address] [id number] [place] [address]- 4147 Sep, [facility] [place] [facility] [address] [id number] [place] [address]- 9598 Sep, [facility] [place] [facility] [address] [id number] [place] [address]- 9638 Sep, [facility] [place] [facility] [address] [id number] [place] [address]- 4580 Sep, [facility] [place] [facility] [address] [id number] [place] [address]- 3496 Aug, [facility] [place] [facility] [address] [id number] [place] [address]- 2746 Aug, [facility] [place] [facility] [address] [id number] [place] [address]- 2663 Aug, [facility] [place] [facility] [address] [id number] [place] [address]- 5870 Aug, [facility] [place] [facility] [address] [id number] [place] [address]- 5261 Aug, [facility] [place] [facility] [address] [id number] [place] [address]- 9749 Aug, [facility] [place] [facility] [address] [id number] [place] [address]- 8982 Aug, [facility] [place] [facility] [address] [id number] [place] [address]- 1170 Aug, [facility] [place] [facility] [address] [id number] [place] [address]- 0372 Aug, [facility] [place] [facility] [address] [id number] [place] [address]- 0840 24 Jul, 2014 [facility] [place] [facility] [address] [id number] [place] [address]- 5128 24 Jul, 2014 [facility] [place] [facility] [address] [id number] [address]- 1346 15 Jul, 2013 [facility] [place] [facility] [address] [id number] [place] [address]- 8212 15 Jul, 2014 [facility] [place] [facility] [address] [id number] [place] [address]- 4207 11 Jul, 2014 [facility] [place] [facility] [address] [id number] [place] [address]- 0130 11 Jul, 2014 [facility] [place] [facility] [address] [id number] [place] [address]- 1817 Jul, [facility] [place] [facility] [address] [id number] [place] [address]- 1867 Jul, [facility] [place] [facility] [address] [id number] [place] [address]- 0100 Jun, [facility] [place] [facility] [address] [id number] [place] [address]- 4757 Jun, [facility] [place] [facility] [address] [id number] [place] [address]- 4829 Jun, [facility] [place] [facility] [address] [id number] [place] [address]- 0089 Jun, [facility] [place] [facility] [address] [id number] [place] [address]- 6952 Jun, [facility] [place] [facility] [address] [id number] [place] [address]- 5059 Jun, [facility] [place] [facility] [address] [id number] [place] [address]- 4279 Jun, [facility] [place] [facility] [address] [id number] [place] [address]- 7759 Jun, [facility] [place] [facility] [address] [id number] [place] [address]- 3997 Jun, [facility] [place] [facility] [address] [id number] [place] [address]- 6703 Jun, [facility] [place] [facility] [address] [id number] [place] [address]- 6013 May, [facility] [place] [facility] [address] [id number] [place] [address]- 4410 May, [facility] [place] [facility] [address] [id number] [place] [address]- 6205 May, [facility] [place] [facility] [address] [id number] [place] [address]- 8632 May, [facility] [place] [facility] [address] [id number] [place] [address]- 2398 May, [facility] [place] [facility] [address] [id number] [place] [address]- 1990 May, [facility] [place] [facility] [address] [id number] [place] [address]- 9119 May, [facility] [place] [facility] [address] [id number] [place] [address]- 7716 May, [facility] [place] [facility] [address] [id number] [place] [address]- 1451 May, [facility] [place] [facility] [address] [id number] [place] [address]- 7866 May, [facility] [place] [facility] [address] [id number] [place] [address]- 0920 Apr, [facility] [place] [facility] [address] [id number] [place] [address]- 9302 Apr, [facility] [place] [facility] [address] [id number] [place] [address]- 4412 Apr, [facility] [place] [facility] [address] [id number] [place] [address]- 5956 Apr, [facility] [place] [facility] [address] [id number] [place] [address]- 9817 Apr, [facility] [place] [facility] [address] [id number] [place] [address]- 4668 Apr, [facility] [place] [facility] [address] [id number] [place] [address]- 5879 Apr, [facility] [place] [facility] [address] [id number] [place] [address]- 0956 Apr, [facility] [place] [facility] [address] [id number] [place] [address]- 1581 March, [facility] [place] [facility] [address] [id number] [place] [address]- 8940 March, [facility] [place] [facility] [address] [id number] [place] [address]- 7635 16 Feb, 2014 [facility] [place] [facility] [address] [id number] [place] [address]- 3806 16 Feb, 2014 [facility] [place] [facility] [address] [id number] [place] [address]- 4611 16 Feb, 2014 [facility] [place] [facility] [address] [id number] [place] [address]- 6370 Feb, [facility] [place] [facility] [address] [id number] [place] [address]- 9995 Feb, [facility] [place] [facility] [address] [id number] [place] [address]- 4930 19 Jan, 2014 [facility] [place] [facility] [address] [id number] [place] [address]- 9553 19 Jan, 2014 [facility] [place] [facility] [address] [id number] [place] [address]- 9557 17 Jan, 2014 [facility] [place] [facility] [address] [id number] [place] [address]- 6832 17 Jan, 2014 [facility] [place] [facility] [address] [id number] [place] [address]- 0899 14 Jan, 2014 [facility] [place] [facility] [address] [id number] [place] [address]- 1986 14 Jan, 2014 [facility] [place] [facility] [address] [id number] [place] [address]- 7673 14 Jan, 2014 [facility] [place] [facility] [address] [id number] [place] [address]- 2274 14 Jan, 2014 [facility] [place] [facility] [address] [id number] [place] [address]- 0026 19 Dec, 2013 [facility] [place] [facility] [address] [id number] [place] [address]- 8710 Dec, [facility] [place] [facility] [address] [id number] [place] [address]- 8932 Dec, [facility] [place] [facility] [address] [id number] [place] [address]- 3626 Dec, [facility] [place] [facility] [address] [id number] [place] [address]- 3736 Dec, [facility] [place] [facility] [address] [id number] [place] [address]- 9506 Dec, [facility] [place] [facility] [address] [id number] [place] [address]- 2697 Dec, [facility] [place] [facility] [address] [id number] [place] [address]- 0289 Dec, [facility] [place] [facility] [address] [id number] [place] [address]- 5358 Nov, [facility] [place] [facility] [address] [id number] [place] [address]- 4623 Nov, [facility] [place] [facility] [address] [id number] [place] [address]- 1349 Nov, [facility] [place] [facility] [address] [id number] [place] [address]- 8402 Nov, [facility] [place] [facility] [address] [id number] [place] [address]- 3498 Nov, [facility] [place] [facility] [address] [id number] [place] [address]- 0452 Nov, [facility] [place] [facility] [address] [id number] [place] [address]- 7976 Nov, [facility] [place] [facility] [address] [id number] [place] [address]- 2415 Oct, [facility] [place] [facility] [address] [id number] [place] [address]- 4736 Oct, [facility] [place] [facility] [address] [id number] [place] [address]- 6637 Oct, [facility] [address] [id number] [place] [address]- 0931 Oct, [facility] [place] [facility] [address] [id number] [place] [address]- 9638 Oct, [facility] [place] [facility] [address] [id number] [place] [address]- 3761 Oct, [facility] [place] [facility] [address] [id number] [place] [address]- 1428 Oct, [facility] [place] [facility] [address] [id number] [place] [address]- 7061 Oct, [facility] [place] [facility] [address] [id number] [place] [address]- 6984 Sep, [facility] [place] [facility] [address] [id number] [place] [address]- 8780 Sep, [facility] [place] [facility] [address] [id number] [address]- 6537 Aug, [facility] [place] [facility] [address] [id number] [place] [address]- 6515 Aug, [facility] [place] [facility] [address] [id number] [place] [address]- 1043 Aug, [facility] [place] [facility] [address] [id number] [place] [address]- 2702 Aug, [facility] [place] [facility] [address] [id number] [place] [address]- 1831 27 Jul, 2013 [facility] [place] [facility] [address] [id number] [place] [address]- 9211 26 Jul, 2013 [facility] [place] [facility] [address] [id number] [address] 17 Jul, 2013 [facility] [place] [facility] [address] [id number] [place] [address] 16 Jul, 2013 [facility] [place] [facility] [address] [id number] [place] [address] Jun, [facility] [address] [id number] [place] [address] Jun, [facility] [place] [facility] [address] [id number] [place] Jun, [facility] [place] [facility] [address] [id number] [place] [address] Feb, [facility] [place] [facility] [address] [id number] [place] [address] Jan, [facility] [place] [facility] [id number] [place] [address], [place] [address] Dec, [facility] [place] [facility] [address] [id number] [place] [address] Dec, [facility] [address] [facility] [id number] [place] [address] Dec, [facility] [address] [facility] [id number] [place] [address] Jan, [facility] [place] [facility] [address] [id number] [place] [address] Dec, [facility] [address] [facility] [id number] [place] [address] Dec, [facility] [place] [facility] [address] [facility] [id number] [place] [address] Dec, [facility] [address] [id number] [place] [address] Sep, [facility] [place] [facility] [address] [id number] [place] [address] Sep, [facility] [place] [facility] [address] [facility] [id number] [place] [address] Aug, [facility] [place] [facility] [address] [facility] [id number] [place] [address] Oct, [facility] [address] [facility] [id number] [place] [address] Sep, [facility] [address] [facility] [id number] [place] [address] Aug, [facility] [address] [facility] [id number] [place] [address] Apr, [facility] [address] [facility] [id number] [place] [address] Oct, IMMUNIZATIONS No Known Immunizations SOCIAL HISTORY Never Assessed REASON FOR VISIT Skin lesion on ear. Right ear has a spot that returns every summer and he gets it treated with cryo. ELI Guzman PLAN OF CARE Activity Details Follow Up prn Reason: VITAL SIGNS Height 65 in 2017-04-14 Weight 154 lbs 2017-04-14 Temperature 98.4 degrees Fahrenheit 2017-04-14 Heart Rate 84 bpm 2017-04-14 Respiratory Rate 20 2017-04-14 BMI 25.62 kg/m2 2017-04-14 Blood pressure systolic 120 mmHg 2017-04-14 Blood pressure diastolic 78 mmHg 2017-04-14 MEDICATIONS Medication Instructions Dosage Frequency Start Date End Date Duration Status Aspirin Low Dose 81 mg take 1 tablet (81 mg) by oral route once daily Dec, Active RESULTS No Results PROCEDURES Procedure Date Ordered Result Body Site CRYOTHERAPY OF SKIN 2017-04-14 N/A CRYOTHERAPY OF SKIN April 14, 2017 [facility] VISIT ESTABLISHED PATIENT April 14, 2017 INSTRUCTIONS MEDICATIONS ADMINISTERED No Known Medications MEDICAL (GENERAL) HISTORY Type Description Date Medical History Acid Reflux Surgical History Left wrist Carpectomy - Ortho 4 States 04/2015 Surgical History Left Knee Replacement 04/2016 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
--- OUTSIDE RECORDS SUMMARY | 2018-07-18 09:57 | XMS REPORT ---
Author Author HERMILA FERRARA Organization [employer] Address Unknown Phone Unavailable Care Team Providers Care Gym Instructor Name Role Phone HERMILA FERRARA CP Unavailable [...]
--- OUTSIDE RECORDS SUMMARY | 2018-07-18 09:57 | XMS REPORT ---
Author Author HERMILA FERRARA [facility] Address [address] [place] [address] Care Team Providers Care Test Operator Name Role Phone HERMILA FERRARA Unavailable PROBLEMS Type Condition ICD9-CM Code [id number] Code Onset Dates Condition Status SNOMED Code Problem 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 syndrome G89.4 Active 740940514 Problem Other chronic pain G89.29 Active 25288919 Problem Other fatigue R53.83 Active [id number] ALLERGIES No Information SOCIAL HISTORY Never Assessed PLAN OF CARE VITAL SIGNS MEDICATIONS No Known Medications RESULTS No Results PROCEDURES No Known procedures IMMUNIZATIONS No Known Immunizations MEDICAL (GENERAL) HISTORY Type Description Date Medical History Acid Reflux Surgical History Left wrist Carpectomy - Ortho 4 States 04/2015 Surgical History Left Knee Replacement 04/2016 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
--- OUTSIDE RECORDS SUMMARY | 2018-07-18 09:58 | XMS REPORT ---
Author Author HERMILA FERRARA Organization [employer] Address Unknown Phone Unavailable Care Team Providers Care Tunnel Elastic Operator Lockstitch Name Role Phone HERMILA FERRARA CP Unavailable [...] Start Date End Date Status Dosage Vicoprofen [facility] [address]-12 7.5-200 MG January 17, 2015 1 Tablet by Oral route PRN 2 in AM and PM and 1 at noon Results No Known Results Summary Purpose [employer] Submission
--- OUTSIDE RECORDS SUMMARY | 2018-07-18 09:58 | XMS REPORT ---
Author NEYDA Kuhn Organization [employer] Address Unknown Phone Unavailable Care Team Providers Care Nail Maker Name Role Phone NEYDA STEPHENS CP Unavailable Allergies No Known Allergies Problems [...]
--- OUTSIDE RECORDS SUMMARY | 2018-07-18 09:59 | XMS REPORT ---
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 Role Phone HERMILA FERRARA Unavailable PROBLEMS Type Condition ICD9-CM Code EUH71-FM Code Onset Dates Condition Status SNOMED Code Problem Incomplete rotator cuff tear or rupture of right shoulder, not specified as traumatic M75.111 Active 2890378467860818 Problem Degenerative tear of glenoid labrum of right shoulder M24.111 Active 857391723 Problem Other chronic pain G89.29 Active 99313133 Problem Other fatigue R53.83 Active 89008109 Problem Other chronic pain G89.29 Active 80290791 Problem 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 syndrome G89.4 Active [id number] ALLERGIES No Known Allergies ENCOUNTERS Encounter Location Date Diagnosis [facility] [id number] [place] [address]51- 0731 Feb, [facility] [address] [address] Dec, Incomplete rotator cuff tear or rupture of right shoulder, not specified as traumatic M75.111 and Degenerative tear of glenoid labrum of right shoulder M24.111 [facility] [id number] [place] [address]144- 9263 Nov, Pain in right shoulder M25.511 ; Other chronic pain G89.29 and Cough R05 [facility] [id number] [place] [address]19- 8655 Nov, Acute midline low back pain without sciatica M54.5 [facility] [id number] [place] [address] 54124- 9738 Aug, Rash R21 [facility] [address] [address] Jun, LLQ abdominal pain R10.32 and Diverticulitis of large intestine without bleeding, unspecified complication status K57.32 [place] [address] [address]- 4697 Apr, 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 syndrome G89.4 [place] [address] [address]- 4035 Apr, Seborrheic keratosis L82.1 [place] [address] [address]- 3[address] March, Parotid gland enlargement K11.1 [facility] [place] [address] [address] March, Tick bite, initial encounter W57.XXXA [place] [address] [address]- 3685 March, [place] [address] 80028- 7661 Feb, Preop testing Z01.818 [place] [address] [address]67- 1771 Feb, Screening, lipid Z13.220 [place] [address] [address]- 3551 Feb, 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 syndrome G89.4 [place] [address] 64390- 5582 Jan, Chondromalacia, right knee M94.261 [place] [address] 99078- 9575 Dec, Pain in right knee M25.561 ; Other chronic pain G89.29 ; Parotid gland enlargement K11.1 and Screening, lipid Z13.220 [place] [id number] [place] [address] 65207- 3087 Nov, Encounter for immunization Z23 [place] [id number] [address] Jun, 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 syndrome G89.4 [facility] [id number] [place] [address] 18165- 1446 May, 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 syndrome G89.4 and 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 [facility] [id number] [place] [address] 83076- 8536 May, [facility] [id number] [place] [address] 08970- 9688 May, Seborrheic keratosis L82.1 [facility] [id number] [place] [address] 75865- 6414 March, [facility] [id number] [place] [address] 01399- 2291 Feb, [facility] [id number] [place] [address] 55992- 3341 Jan, [facility] [id number] [place] [address] 55276- 5577 Jan, 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 syndrome G89.4 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 [facility] [address] [address] 9652 Jan, 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 syndrome G89.4 and correction current use of opiate analgesic Z79.891 [facility] [address] [address]- 7195 Dec, [facility] [id number] [place] [address] 94042- 3097 Dec, Knee pain M25.569 [facility] [id number] [place] [address] 02434- 9071 Nov, [facility] [address] [address]- 8508 Oct, [facility] [id number] [place] [address] 8926 Oct, [facility] [place] [facility] [address] [id number] [place] [address]- 2450 Sep, [facility] [place] [facility] [address] [facility] [id number] [place] [address]- 5601 Aug, [facility] [place] [facility] [address] [facility] [id number] [place] [address]- 2669 Aug, [facility] [place] [facility] [address] [facility] [id number] [place] [address]- 9347 Jul, [facility] [place] [facility] [address] [place] [address]- 9731 Jul, No condition on Denhoff I V71.09 and No condition on Denhoff II V71.09 [facility] [place] [facility] [id number] [place] [address]- 5638 Jul, [facility] [place] [facility] [address] [facility] [id number] [place] [address]- 8394 Jul, [facility] [place] [facility] [id number] [place] [address]- 7742 Jul, [facility] [place] [facility] [id number] [place] [address]- 4791 Jun, [facility] [place] [facility] [id number] [place] [address]- 0517 Jun, [facility] [place] [facility] [address] [facility] [id number], [place] [address]- 8638 May, [facility] [place] [facility] [address] [facility] [id number] [place] [address]- 9588 May, [facility] [place] [facility] [address] [facility] [id number] [place] [address]41 Apr, [facility] [place] [facility] [address] [facility] [id number] [place] 9968 Apr, [facility] [place] [facility] [address] [id number] [place] [address]- 1105 March, [facility] [place] [facility] [address] [id number] [place] [address]- 4988 14 Feb, 2015 [facility] [place] [facility] [address] [id number] [place] [address]- 6874 Feb, [facility] [place] [facility] [address] [id number] [place] [address]- 3220 Jan, [facility] [place] [facility] [address] [id number] [place] [address]- 7597 Jan, [facility] [place] [facility] [address] [id number] [place] [address]- 9190 Jan, [facility] [place] [facility] [address] [id number] [place] [address]- 4005 Jan, [facility] [place] [facility] [address] [id number] [place] [address]- 8959 Jan, [facility] [place] [facility] [address] [id number] [place] [address]- 7056 17 Jan, 2015 [facility] [place] [facility] [address] [id number] [place] [address]- 0444 Jan, [facility] [place] [facility] [address] [id number] [place] [address]- 1926 Jan, [facility] [place] [facility] [address] [id number] [place] [address]- 9109 Jan, [facility] [place] [facility] [address] [id number] [place] [address]- 1652 Dec, [facility] [place] [facility] [address] [id number] [place] [address]- 1355 Dec, [facility] [place] [facility] [address] [id number] [place] [address]- 3956 Dec, [facility] [place] [facility] [address] [id number] [place] [address]- 6217 Dec, [facility] [place] [facility] [address] [id number] [place] [address]- 5860 Dec, [facility] [place] [facility] [address] [id number] [place] [address]- 2381 Dec, [facility] [place] [facility] [address] [id number] [place] [address]- 0574 Nov, [facility] [place] [facility] [address] [id number] [place] [address]- 1444 Nov, [facility] [place] [facility] [address] [id number] [place] [address]- 1420 Nov, [facility] [place] [facility] [address] [id number] [place] [address]- 6812 Nov, [facility] [place] [facility] [address] [id number] [place] [address]- 9468 Nov, [facility] [place] [facility] [address] [id number] [place] [address]- 2626 Nov, [facility] [place] [facility] [address] [id number] [place] [address]- 2835 Nov, [facility] [place] [facility] [address] [id number] [place] [address]- 8062 Nov, [facility] [place] [facility] [address] [id number] [place] [address]- 0544 Nov, [facility] [place] [facility] [address] [id number], [place] [address]- 3198 Oct, [facility] [place] [facility] [address] [id number] [place] [address]- 3457 Oct, [facility] [place] [facility] [address] [id number] [place] [address]- 8555 Oct, [facility] [place] [facility] [address] [id number] [place] [address]- 4580 Oct, [facility] [place] [facility] [address] [id number] [place] [address]- 5355 16 Oct, 2014 [facility] [place] [facility] [address] [id number] [place] [address]- 3897 16 Oct, 2014 [facility] [place] [facility] [address] [id number] [place] [address]- 9292 Sep, [facility] [place] [facility] [address] [id number] [place] [address]- 8560 Sep, [facility] [place] [facility] [address] [id number] [place] [address]- 5062 Sep, [facility] [place] [facility] [address] [id number] [place] [address]- 9944 Sep, [facility] [place] [facility] [address] [id number] [place] [address]- 8484 Sep, [facility] [place] [facility] [address] [id number] [place] [address]- 2591 Sep, [facility] [place] [facility] [address] [id number] [place] [address]- 2381 Sep, [facility] [place] [facility] [address] [id number] [place] [address]- 4547 Sep, [facility] [place] [facility] [address] [id number] [place] [address]- 8596 Sep, [facility] [place] [facility] [address] [id number] [place] [address]- 7648 Sep, [facility] [place] [facility] [address] [id number] [place] [address]- 7370 Sep, [facility] [place] [facility] [address] [id number] [place] [address]- 2178 Sep, [facility] [place] [facility] [address] [id number] [place] [address]- 1314 Sep, [facility] [place] [facility] [address] [id number] [place] [address]- 3031 Sep, [facility] [place] [facility] [address] [id number] [place] [address]- 7167 Aug, [facility] [place] [facility] [address] [id number] [place] [address]- 5514 Aug, [facility] [place] [facility] [address] [id number] [place] [address]- 6142 Aug, [facility] [place] [facility] [address] [id number] [place] [address]- 2430 Aug, [facility] [place] [facility] [address] [id number] [place] [address]- 3580 Aug, [facility] [place] [facility] [address] [id number] [place] [address]- 0511 Aug, [facility] [place] [facility] [address] [id number] [place] [address]- 5214 Aug, [facility] [place] [facility] [address] [id number] [place] [address]- 2366 Aug, [facility] [place] [facility] [address] [id number] [place] [address]- 7020 Aug, [facility] [place] [facility] [address] [id number] [place] [address]- 4484 24 Jul, 2014 [facility] [place] [facility] [address] [id number] [place] [address]- 4674 24 Jul, 2014 [facility] [place] [facility] [address] [id number], [place] [address]- 3294 15 Jul, 2013 [facility] [place] [facility] [address] [id number] [place] [address]- 3368 15 Jul, 2014 [facility] [place] [facility] [address] [id number] [place] [address]- 5121 11 Jul, 2014 [facility] [place] [facility] [address] [id number], [place] [address]- 3920 11 Jul, 2014 [facility] [place] [facility] [address] [id number], [place] [address]- 8437 Jul, [facility] [place] [facility] [address] [id number] [place] [address]- 8798 Jul, [facility] [place] [facility] [address] [id number] [place] [address]- 2935 Jun, [facility] [place] [facility] [address] [id number] [place] [address]- 1242 Jun, [facility] [place] [facility] [address] [id number] [place] [address]- 1436 Jun, [facility] [place] [facility] [address] [id number] [place] [address]- 2279 Jun, [facility] [place] [facility] [address] [id number] [place] [address]- 2140 Jun, [facility] [place] [facility] [address] [id number] [place] [address]- 7832 Jun, [facility] [place] [facility] [address] [id number] [place] [address]- 6810 Jun, [facility] [place] [facility] [address] [id number] [place] [address]- 6524 Jun, [facility] [place] [facility] [address] [id number] [place] [address]- 2386 Jun, [facility] [place] [facility] [address] [id number] [place] [address]- 4643 Jun, [facility] [place] [facility] [address] [id number] [place] [address]- 7106 May, [facility] [place] [facility] [address] [id number] [place] [address]- 7034 May, [facility] [place] [facility] [address] [id number] [place] [address]- 6354 May, [facility] [place] [facility] [address] [id number] [place] [address]- 3362 May, [facility] [place] [facility] [address] [id number] [place] [address]- 2089 May, [facility] [place] [facility] [address] [id number] [place] [address]- 2840 May, [facility] [place] [facility] [address] [id number] [place] [address]- 8850 May, [facility] [place] [facility] [address] [id number] [place] [address]- 4579 May, [facility] [place] [facility] [address] [id number] [place] [address]- 5684 May, [facility] [place] [facility] [address] [id number] [place] [address]- 9794 May, [facility] [place] [facility] [address] [id number] [place] [address]- 6725 Apr, [facility] [place] [facility] [address] [id number] [place] [address]- 1033 Apr, [facility] [place] [facility] [address] [id number] [place] [address]- 6143 Apr, [facility] [place] [facility] [address] [id number] [place] [address]- 7988 Apr, [facility] [place] [facility] [address] [id number] [place] [address]- 7481 Apr, [facility] [place] [facility] [address] [id number] [place] [address]- 3875 Apr, [facility] [place] [facility] [address] [id number] [place] [address]- 6439 Apr, [facility] [place] [facility] [address] [id number] [place] [address]- 2542 Apr, [facility] [place] [facility] [address] [id number] [place] [address]- 9570 March, [facility] [place] [facility] [address] [id number] [place] [address]- 5634 March, [facility] [place] [facility] [address] [id number] [place] [address]- 9615 16 Feb, 2014 [facility] [place] [facility] [address] [id number] [place] [address]- 0563 16 Feb, 2014 [facility] [place] [facility] [address] [id number] [place] [address]- 5128 16 Feb, 2014 [facility] [place] [facility] [address] [id number] [place] [address]- 4347 Feb, [facility] [place] [facility] [address] [id number] [place] [address]- 8078 Feb, [facility] [place] [facility] [address] [id number] [place] [address]- 2000 19 Jan, 2014 [facility] [place] [facility] [address] [id number] [place] [address]- 7640 19 Jan, 2014 [facility] [place] [facility] [address] [id number] [place] [address]- 8841 17 Jan, 2014 [facility] [place] [facility] [address] [id number] [place] [address]- 4015 17 Jan, 2014 [facility] [place] [facility] [address] [id number] [place] [address]- 7748 14 Jan, 2014 [facility] [place] [facility] [address] [id number] [place] [address]- 5469 14 Jan, 2014 [facility] [place] [facility] [address] [id number] [place] [address]- 0786 14 Jan, 2014 [facility] [place] [facility] [address] [id number] [place] [address]- 1269 14 Jan, 2014 [facility] [place] [facility] [address] [id number] [place] [address]- 6558 19 Dec, 2013 [facility] [place] [facility] [address] [id number] [place] [address]- 5602 Dec, [facility] [place] [facility] [address] [id number] [place] [address]- 3283 Dec, [facility] [place] [facility] [address] [id number] [place] [address]- 1626 Dec, [facility] [place] [facility] [address] [id number] [place] [address]- 6846 Dec, [facility] [place] [facility] [address] [id number] [place] [address]- 6436 Dec, [facility] [place] [facility] [address] [id number] [place] [address]- 3319 Dec, [facility] [place] [facility] [address] [id number] [place] [address]- 7986 Dec, [facility] [place] [facility] [address] [id number] [place] [address]- 7870 Nov, [facility] [place] [facility] [address] [id number] [place] [address]- 2643 Nov, [facility] [place] [facility] [address] [id number] [place] [address]- 6941 Nov, [facility] [place] [facility] [address] [id number] [place] [address]- 0159 Nov, [facility] [place] [facility] [address] [id number] [place] [address]- 2742 Nov, [facility] [place] [facility] [address] [id number] [place] [address]- 5195 Nov, [facility] [place] [facility] [address] [id number] [place] [address]- 9090 Nov, [facility] [place] [facility] [address] [id number] [place] [address]- 6230 Oct, [facility] [place] [facility] [address] [id number] [place] [address]- 8766 Oct, [facility] [place] [facility] [address] [id number] [place] [address]- 1710 Oct, [facility] [address] [id number] [place] [address]- 9003 Oct, [facility] [place] [facility] [address] [id number] [place] [address]- 5413 Oct, [facility] [place] [facility] [address] [id number] [place] [address]- 3030 Oct, [facility] [place] [facility] [address] [id number] [place] [address] Oct, [facility] [place] [facility] [address] [id number] [place] [address] Oct, [facility] [place] [facility] [address] [id number] [place] [address] Sep, [facility] [place] [facility] [address] [id number] [place] [address] Sep, [facility] [place] [facility] [address] [id number], [place] [address] Aug, [facility] [place] [facility] [address] [id number] [place] [address] Aug, [facility] [place] [facility] [address] [id number], [place] [address] Aug, [facility] [place] [facility] [address] [id number], [place] [address] Aug, [facility] [place] [facility] [address] [id number], [place] [address] 27 Jul, 2013 [facility] [place] [facility] [address] [id number] [place] [address] 26 Jul, 2013 [facility] [place] [facility] [address] [id number], [place] [address] 17 Jul, 2013 [facility] [place] [facility] [address] [id number] [place] [address] 16 Jul, 2013 [facility] [place] [facility] [address] [id number] [place] [address] Jun, [facility] [address] [id number] [place] [address] Jun, [facility] [place] [facility] [address] [id number] [place] [address] Jun, [facility] [place] [facility] [address] [id number] [place] [address] Feb, [facility] [place] [facility] [address] [id number] [place] [address] Jan, [facility] [place] [facility] [id number] [place] [address], [place] [address] Dec, [facility] [place] [facility] [address] [id number] [place] [address] Dec, [facility] [address] [facility] [id number] [place] [address] Dec, [facility] [address] [facility] [id number] [place] [address] Jan, [facility] [place] [facility] [address] [id number] [address] Dec, [facility] [address] [facility] [id number] [place] [address] Dec[facility] [place] [facility] [address] [facility] [id number] [place] [address] Dec, [facility] [address] [id number] [place] [address] Sep, [facility] [place] [facility] [address] [id number] [place] [address] Sep, [facility] [place] [facility] [address] [facility] [id number] [place] [address] Aug, [facility] [place] [facility] [address] [facility] [id number] [place] [address] Oct, [facility] [address] [facility] [id number] [place] [address] Sep, [facility] [address] [facility] [id number], [place] [address] Aug, [facility] [address] [facility] [id number], [place] [address] Apr, [facility] [address] [facility] [id number], [place] [address] Oct, IMMUNIZATIONS No Known Immunizations SOCIAL HISTORY Never Assessed REASON FOR VISIT On going Back pain, PT is leaving for [place] tomorrow morning and would like medication for the drive- [place] PLAN OF CARE Activity Details Follow Up prn Reason: VITAL SIGNS Height 65 in 2017-05-06 Weight 157.3 lbs 2017-05-06 Temperature 98.4 degrees Fahrenheit 2017-05-06 Heart Rate 82 bpm 2017-05-06 Respiratory Rate 18 2017-05-06 BMI 26.17 kg/m2 2017-05-06 Blood pressure systolic 162 mmHg 2017-05-06 Blood pressure diastolic 94 mmHg 2017-05-06 MEDICATIONS Medication Instructions Dosage Frequency Start Date End Date Duration Status Hydrocodone-Acetaminophen 7.5-325 MG Orally 2 times a day 1 tablet 12h Apr, May, 15 days Active Aspirin Low Dose 81 mg take 1 tablet (81 mg) by oral route once daily Dec, Active RESULTS No Results PROCEDURES Procedure Date Ordered Result Body Site [facility] VISIT ESTABLISHED PATIENT May 06, 2017 INSTRUCTIONS MEDICATIONS ADMINISTERED No Known Medications MEDICAL (GENERAL) HISTORY Type Description Date Medical History Acid Reflux Surgical History Left wrist Carpectomy - Ortho 4 States 04/2015 Surgical History Left Knee Replacement 04/2016 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
[2018-07-18] MEDS ORDERED: HURRICAINE EXT TUBE (BENZOCAINE) XX PRN (10:00)
[2018-07-18] MEDS ORDERED: fentaNYL INJECTION 100 MCG/2 ML AMP IVP ONE (10:00)
[2018-07-18] MEDS ORDERED: MIDAZOLAM 2 MG/2 ML (VERSED) VIAL IVP ONE (10:00)
--- OUTSIDE RECORDS SUMMARY | 2018-07-18 10:00 | XMS REPORT | Continuity of Care Document ---
Demographics x Preferred Language Unknown Marital Status Unknown Gnosticism Affiliation Unknown Race Unknown Ethnic Group Unknown Author Author [facility] Organization [facility] Address Unknown Phone Unavailable Allergies Active Description Code Type Severity Reaction Onset Reported/Identified Relationship to Patient Clinical Status Yes No known drug allergies [id number] Drug Allergy N/A N/A Confirmed but inactive Yes PCN; CODEINE Drug Allergy N/ A N/A Erroneous Yes No Known Drug Allergies [id number] Drug Allergy Unknown N/A 07/11/2013 Medications There is no data. Problems Date Dx Coded Attending Type Code Diagnosis Diagnosed By 10/10/2008 JOSIAS COTTON GIN YARD SUPERVISOR, HERMILA S 785.6 LYMPH NODES ENLARGEMENT 10/10/2008 785.6 LYMPH NODES ENLARGEMENT 10/10/2008 785.6 LYMPH NODES ENLARGEMENT 10/10/2008 JOSIAS COTTON GIN YARD SUPERVISOR, HERMILA S 785.6 LYMPH NODES ENLARGEMENT 10/10/2008 JOSIAS COTTON GIN YARD SUPERVISOR, HERMILA S 785.6 LYMPH NODES ENLARGEMENT 10/10/2008 JOSIAS COTTON GIN YARD SUPERVISOR, HERMILA S 785.6 LYMPH NODES ENLARGEMENT 10/10/2008 JOSIAS COTTON GIN YARD SUPERVISOR, HERMILA S 785.6 LYMPH NODES ENLARGEMENT 10/10/2008 JOSIAS COTTON GIN YARD SUPERVISOR, HERMILA S 785.6 LYMPH NODES ENLARGEMENT 10/10/2008 JOSIAS COTTON GIN YARD SUPERVISOR, HERMILA S 785.6 LYMPH NODES ENLARGEMENT 10/10/2008 JOSIAS COTTON GIN YARD SUPERVISOR, HERMILA S 785.6 LYMPH NODES ENLARGEMENT 10/10/2008 JOSIAS COTTON GIN YARD SUPERVISOR, HERMILA S 785.6 LYMPH NODES ENLARGEMENT 10/10/2008 JOSIAS COTTON GIN YARD SUPERVISOR, HERMILA S 785.6 LYMPH NODES ENLARGEMENT 10/10/2008 JOE POLANCO DO 785.6 LYMPH NODES ENLARGEMENT 10/10/2008 JOSIAS COTTON GIN YARD SUPERVISOR, HERMILA S 785.6 LYMPH NODES ENLARGEMENT 10/10/2008 JOSIAS COTTON GIN YARD SUPERVISOR, HERMILA S 785.6 LYMPH NODES ENLARGEMENT 10/10/2008 785.6 LYMPH NODES ENLARGEMENT 10/10/2008 JOSIAS COTTON GIN YARD SUPERVISOR, HERMILA S 785.6 LYMPH NODES ENLARGEMENT 10/10/2008 785.6 LYMPH NODES ENLARGEMENT 10/10/2008 JOSIAS COTTON GIN YARD SUPERVISOR, HERMILA S 785.6 LYMPH NODES ENLARGEMENT 10/10/2008 POLANCO DO, JOE K 785.6 LYMPH NODES ENLARGEMENT 10/24/2008 JOSIAS COTTON GIN YARD SUPERVISOR, HERMILA S 706.2 SEBACEOUS CYST 10/24/2008 706.2 SEBACEOUS CYST 10/24/2008 706.2 SEBACEOUS CYST 10/24/2008 JOSIAS COTTON GIN YARD SUPERVISOR, HERMILA S 706.2 SEBACEOUS CYST 10/24/2008 JOSIAS COTTON GIN YARD SUPERVISOR, HERMILA S 706.2 SEBACEOUS CYST 10/24/2008 JOSIAS COTTON GIN YARD SUPERVISOR, HERMILA S 706.2 SEBACEOUS CYST 10/24/2008 JOSIAS COTTON GIN YARD SUPERVISOR, HERMILA S 706.2 SEBACEOUS CYST 10/24/2008 JOSIAS COTTON GIN YARD SUPERVISOR, HERMILA S 706.2 SEBACEOUS CYST 10/24/2008 JOSIAS COTTON GIN YARD SUPERVISOR, HERMILA S 706.2 SEBACEOUS CYST 10/24/2008 JOSIAS COTTON GIN YARD SUPERVISOR, HERMILA S 706.2 SEBACEOUS CYST 10/24/2008 JOSIAS COTTON GIN YARD SUPERVISOR, HERMILA S 706.2 SEBACEOUS CYST 10/24/2008 JOSIAS COTTON GIN YARD SUPERVISOR, HERMILA S 706.2 SEBACEOUS CYST 10/24/2008 POLANCO DO JOE K 706.2 SEBACEOUS CYST 10/24/2008 JOSIAS COTTON GIN YARD SUPERVISOR, HERMILA S 706.2 SEBACEOUS CYST 10/24/2008 JOSIAS COTTON GIN YARD SUPERVISOR, HERMILA S 706.2 SEBACEOUS CYST 10/24/2008 706.2 SEBACEOUS CYST 10/24/2008 JOSIAS COTTON GIN YARD SUPERVISOR, HERMILA S 706.2 SEBACEOUS CYST 10/24/2008 706.2 SEBACEOUS CYST 10/24/2008 JOSIAS COTTON GIN YARD SUPERVISOR, HERMILA S 706.2 SEBACEOUS CYST 10/24/2008 POLANCO DO JOE K 706.2 SEBACEOUS CYST 10/25/2008 JOSIAS COTTON GIN YARD SUPERVISOR, HERMILA S 214.9 LIPOMA UNSPECIFIED SITE 10/25/2008 214.9 LIPOMA UNSPECIFIED SITE 10/25/2008 214.9 LIPOMA UNSPECIFIED SITE 10/25/2008 JOSIAS COTTON GIN YARD SUPERVISOR, HERMILA S 214.9 LIPOMA UNSPECIFIED SITE 10/25/2008 JOSIAS COTTON GIN YARD SUPERVISOR, HERMILA S 214.9 LIPOMA UNSPECIFIED SITE 10/25/2008 JOSIAS COTTON GIN YARD SUPERVISOR, HERMILA S 214.9 LIPOMA UNSPECIFIED SITE 10/25/2008 JOSIAS COTTON GIN YARD SUPERVISOR, HERMILA S 214.9 LIPOMA UNSPECIFIED SITE 10/25/2008 JOSIAS COTTON GIN YARD SUPERVISOR, HERMILA S 214.9 LIPOMA UNSPECIFIED SITE 10/25/2008 JOSIAS COTTON GIN YARD SUPERVISOR, HERMLIA S 214.9 LIPOMA UNSPECIFIED SITE 10/25/2008 JOSIAS COTTON GIN YARD SUPERVISOR, HERMILA S 214.9 LIPOMA UNSPECIFIED SITE 10/25/2008 JOSIAS COTTON GIN YARD SUPERVISOR, HERMILA S 214.9 LIPOMA UNSPECIFIED SITE 10/25/2008 JOSIAS COTTON GIN YARD SUPERVISOR, HERMILA S 214.9 LIPOMA UNSPECIFIED SITE 10/25/2008 POLANCO DO JOE K 214.9 LIPOMA UNSPECIFIED SITE 10/25/2008 JOSIAS MEYERN, HERMILA S 214.9 LIPOMA UNSPECIFIED SITE 10/25/2008 JOSIAS COTTON GIN YARD SUPERVISOR, HERMILA S 214.9 LIPOMA UNSPECIFIED SITE 10/25/2008 214.9 LIPOMA UNSPECIFIED SITE 10/25/2008 JOSIAS MEYERN, HERMILA S 214.9 LIPOMA UNSPECIFIED SITE 10/25/2008 214.9 LIPOMA UNSPECIFIED SITE 10/25/2008 JOSIAS COTTON GIN YARD SUPERVISOR, HERMILA S 214.9 LIPOMA UNSPECIFIED SITE 10/25/2008 POLANCO DO, JOE K 214.9 LIPOMA UNSPECIFIED SITE 04/18/2009 JOSIAS MEYERN, HERMILA S 455.3 HEMORRHOIDS EXTERNAL 04/18/2009 JOSIAS MEYERN, HERMILA S 600.01 BPH W/ URINARY OBSTRUCTION W/ OTHER LOWER URINARY TRACT SX 04/18/2009 455.3 HEMORRHOIDS EXTERNAL 04/18/2009 600.01 BPH W/ URINARY OBSTRUCTION W/ OTHER LOWER URINARY TRACT SX 04/18/2009 455.3 HEMORRHOIDS EXTERNAL 04/18/2009 600.01 BPH W/ URINARY OBSTRUCTION W/ OTHER LOWER URINARY TRACT SX 04/18/2009 JOSIAS SHEEHAN, HERMILA S 455.3 HEMORRHOIDS EXTERNAL 04/18/2009 JOSIAS MEYERN, HERMILA S 600.01 BPH W/ URINARY OBSTRUCTION W/ OTHER LOWER URINARY TRACT SX 04/18/2009 JOSIAS SHEEHAN, HERMILA S 455.3 HEMORRHOIDS EXTERNAL 04/18/2009 JOSIAS COTTON GIN YARD SUPERVISOR, HERMILA S 600.01 BPH W/ URINARY OBSTRUCTION W/ OTHER LOWER URINARY TRACT SX 04/18/2009 JOSIAS SHEEHAN HERMILA S 455.3 HEMORRHOIDS EXTERNAL 04/18/2009 JOSIAS SHEEHAN, HERMILA S 600.01 BPH W/ URINARY OBSTRUCTION W/ OTHER LOWER URINARY TRACT SX 04/18/2009 JOSIAS SHEEHAN, HERMILA S 455.3 HEMORRHOIDS EXTERNAL 04/18/2009 JOSIAS SHEEHAN HERMILA S 600.01 BPH W/ URINARY OBSTRUCTION W/ OTHER LOWER URINARY TRACT SX 04/18/2009 JOSIAS SHEEHAN HERMILA S 455.3 HEMORRHOIDS EXTERNAL 04/18/2009 JOSIAS SHEEHAN, HERMILA S 600.01 BPH W/ URINARY OBSTRUCTION W/ OTHER LOWER URINARY TRACT SX 04/18/2009 JOSIAS SHEEHAN HERMILA S 455.3 HEMORRHOIDS EXTERNAL 04/18/2009 JOSIAS SHEEHAN, HERMILA S 600.01 BPH W/ URINARY OBSTRUCTION W/ OTHER LOWER URINARY TRACT SX 04/18/2009 JOSIAS SHEEHAN HERMILA S 455.3 HEMORRHOIDS EXTERNAL 04/18/2009 JOSIAS SHEEHAN, HERMILA S 600.01 BPH W/ URINARY OBSTRUCTION W/ OTHER LOWER URINARY TRACT SX 04/18/2009 JOSIAS SHEEHAN HERMILA S 455.3 HEMORRHOIDS EXTERNAL 04/18/2009 JOSIAS SHEEHAN, HERMILA S 600.01 BPH W/ URINARY OBSTRUCTION W/ OTHER LOWER URINARY TRACT SX 04/18/2009 JOSIAS COTTON GIN YARD SUPERVISOR, HERMILA S 455.3 HEMORRHOIDS EXTERNAL 04/18/2009 JOSIAS SHEEHAN, HERMILA S 600.01 BPH W/ URINARY OBSTRUCTION W/ OTHER LOWER URINARY TRACT SX 04/18/2009 POLANCO DO, JOE K 455.3 HEMORRHOIDS EXTERNAL 04/18/2009 POLANCO DO, JOE K 600.01 BPH W/ URINARY OBSTRUCTION W/ OTHER LOWER URINARY TRACT SX 04/18/2009 JOSIASJASMEET COATS APRNA S 455.3 HEMORRHOIDS EXTERNAL 04/18/2009 JASMEET FERRARA APRNA S 600.01 BPH W/ URINARY OBSTRUCTION W/ OTHER LOWER URINARY TRACT SX 04/18/2009 JASMEET FERRARA APRNA S 455.3 HEMORRHOIDS EXTERNAL 04/18/2009 YOANDY FERRARA APRNNDA S 600.01 BPH W/ URINARY OBSTRUCTION W/ OTHER LOWER URINARY TRACT SX 04/18/2009 455.3 HEMORRHOIDS EXTERNAL 04/18/2009 600.01 BPH W/ URINARY OBSTRUCTION W/ OTHER LOWER URINARY TRACT SX 04/18/2009 JASMEET FERRARA APRNA S 455.3 HEMORRHOIDS EXTERNAL 04/18/2009 JASMEET FERRARA APRNA S 600.01 BPH W/ URINARY OBSTRUCTION W/ OTHER LOWER URINARY TRACT SX 04/18/2009 455.3 HEMORRHOIDS EXTERNAL 04/18/2009 600.01 BPH W/ URINARY OBSTRUCTION W/ OTHER LOWER URINARY TRACT SX 04/18/2009 HERMILA FERRARA APRN S 455.3 HEMORRHOIDS EXTERNAL 04/18/2009 JASMEET FERRARA APRNA S 600.01 BPH W/ URINARY OBSTRUCTION W/ OTHER LOWER URINARY TRACT SX 04/18/2009 POLANCO DO, JOE K 455.3 HEMORRHOIDS EXTERNAL 04/18/2009 POLANCO DO, JOE K 600.01 BPH W/ URINARY OBSTRUCTION W/ OTHER LOWER URINARY TRACT SX 05/16/2009 HERMILA FERRARA APRN S 305.1 smoking cigarettes 05/16/2009 HERMILA FERRARA APRN S 796.2 ELEVATED BLOOD PRESSURE READING WITHOUT DIAGNOSIS OF HYPERTENSION 05/16/2009 305.1 smoking cigarettes 05/16/2009 796.2 ELEVATED BLOOD PRESSURE READING WITHOUT DIAGNOSIS OF HYPERTENSION 05/16/2009 305.1 smoking cigarettes 05/16/2009 796.2 ELEVATED BLOOD PRESSURE READING WITHOUT DIAGNOSIS OF HYPERTENSION 05/16/2009 HERMILA FERRARA APRN S 305.1 smoking cigarettes 05/16/2009 HERMILA FERRARA APRN S 796.2 ELEVATED BLOOD PRESSURE READING WITHOUT DIAGNOSIS OF HYPERTENSION 05/16/2009 HERMILA FERRARA APRN S 305.1 smoking cigarettes 05/16/2009 HERMILA FERRARA APRN S 796.2 ELEVATED BLOOD PRESSURE READING WITHOUT DIAGNOSIS OF HYPERTENSION 05/16/2009 JOSIAS COTTON GIN YARD SUPERVISOR, HERMILA S 305.1 smoking cigarettes 05/16/2009 JOSIAS COTTON GIN YARD SUPERVISOR, HERMILA S 796.2 ELEVATED BLOOD PRESSURE READING WITHOUT DIAGNOSIS OF HYPERTENSION 05/16/2009 JOSIAS COTTON GIN YARD SUPERVISOR, HERMILA S 305.1 smoking cigarettes 05/16/2009 JOSIAS COTTON GIN YARD SUPERVISOR, HERMILA S 796.2 ELEVATED BLOOD PRESSURE READING WITHOUT DIAGNOSIS OF HYPERTENSION 05/16/2009 JOSIAS COTTON GIN YARD SUPERVISOR, HERMILA S 305.1 smoking cigarettes 05/16/2009 JOSIAS COTTON GIN YARD SUPERVISOR, HERMILA S 796.2 ELEVATED BLOOD PRESSURE READING WITHOUT DIAGNOSIS OF HYPERTENSION 05/16/2009 JOSIAS COTTON GIN YARD SUPERVISOR, HERMILA S 305.1 smoking cigarettes 05/16/2009 JOSIAS COTTON GIN YARD SUPERVISOR, HERMILA S 796.2 ELEVATED BLOOD PRESSURE READING WITHOUT DIAGNOSIS OF HYPERTENSION 05/16/2009 JOSIAS COTTON GIN YARD SUPERVISOR, HERMILA S 305.1 smoking cigarettes 05/16/2009 JOSIAS COTTON GIN YARD SUPERVISOR, HERMILA S 796.2 ELEVATED BLOOD PRESSURE READING WITHOUT DIAGNOSIS OF HYPERTENSION 05/16/2009 JOSIAS COTTON GIN YARD SUPERVISOR, HERMILA S 305.1 smoking cigarettes 05/16/2009 JOSIAS COTTON GIN YARD SUPERVISOR, HERMILA S 796.2 ELEVATED BLOOD PRESSURE READING WITHOUT DIAGNOSIS OF HYPERTENSION 05/16/2009 JOSIAS COTTON GIN YARD SUPERVISOR, HERMILA S 305.1 smoking cigarettes 05/16/2009 JOSIAS COTTON GIN YARD SUPERVISOR, HERMILA S 796.2 ELEVATED BLOOD PRESSURE READING WITHOUT DIAGNOSIS OF HYPERTENSION 05/16/2009 POLANCO DO, JOE K 305.1 smoking cigarettes 05/16/2009 POLANCO DO, JOE K 796.2 ELEVATED BLOOD PRESSURE READING WITHOUT DIAGNOSIS OF HYPERTENSION 05/16/2009 JOSIAS COTTON GIN YARD SUPERVISOR, HERMILA S 305.1 smoking cigarettes 05/16/2009 JOSIAS COTTON GIN YARD SUPERVISOR, HERMILA S 796.2 ELEVATED BLOOD PRESSURE READING WITHOUT DIAGNOSIS OF HYPERTENSION 05/16/2009 JOSIAS COTTON GIN YARD SUPERVISOR, HERMILA S 305.1 smoking cigarettes 05/16/2009 JOSIAS COTTON GIN YARD SUPERVISOR, HERMILA S 796.2 ELEVATED BLOOD PRESSURE READING WITHOUT DIAGNOSIS OF HYPERTENSION 05/16/2009 305.1 smoking cigarettes 05/16/2009 796.2 ELEVATED BLOOD PRESSURE READING WITHOUT DIAGNOSIS OF HYPERTENSION 05/16/2009 JOSIAS COTTON GIN YARD SUPERVISOR, HERMILA S 305.1 smoking cigarettes 05/16/2009 JOSIAS COTTON GIN YARD SUPERVISOR, HERMILA S 796.2 ELEVATED BLOOD PRESSURE READING WITHOUT DIAGNOSIS OF HYPERTENSION 05/16/2009 305.1 smoking cigarettes 05/16/2009 796.2 ELEVATED BLOOD PRESSURE READING WITHOUT DIAGNOSIS OF HYPERTENSION 05/16/2009 JOSIAS COTTON GIN YARD SUPERVISOR, HERMILA S 305.1 smoking cigarettes 05/16/2009 JOSIAS COTTON GIN YARD SUPERVISOR, HERMILA S 796.2 ELEVATED BLOOD PRESSURE READING WITHOUT DIAGNOSIS OF HYPERTENSION 05/16/2009 POLANCO DO, JOE K 305.1 smoking cigarettes 05/16/2009 POLANCO DO, JOE K 796.2 ELEVATED BLOOD PRESSURE READING WITHOUT DIAGNOSIS OF HYPERTENSION 01/28/2010 JOSIAS COTTON GIN YARD SUPERVISOR, HERMILA S 724.4 NEURITIS THORACIC 01/28/2010 724.4 NEURITIS THORACIC 01/28/2010 724.4 NEURITIS THORACIC 01/28/2010 JOSIAS COTTON GIN YARD SUPERVISOR, HERMILA S 724.4 NEURITIS THORACIC 01/28/2010 JOSIAS COTTON GIN YARD SUPERVISOR, HERMILA S 724.4 NEURITIS THORACIC 01/28/2010 JOSIAS COTTON GIN YARD SUPERVISOR, HERMILA S 724.4 NEURITIS THORACIC 01/28/2010 JOSIAS COTTON GIN YARD SUPERVISOR, HERMILA S 724.4 NEURITIS THORACIC 01/28/2010 JOSIAS COTTON GIN YARD SUPERVISOR, HERMILA S 724.4 NEURITIS THORACIC 01/28/2010 JOSIAS COTTON GIN YARD SUPERVISOR, HERMILA S 724.4 NEURITIS THORACIC 01/28/2010 JOSIAS COTTON GIN YARD SUPERVISOR, HERMILA S 724.4 NEURITIS THORACIC 01/28/2010 JOSIAS COTTON GIN YARD SUPERVISOR, HERMILA S 724.4 NEURITIS THORACIC 01/28/2010 JOSIAS COTTON GIN YARD SUPERVISOR, HERMILA S 724.4 NEURITIS THORACIC 01/28/2010 POLANCO DO, JOE K 724.4 NEURITIS THORACIC 01/28/2010 JOSIAS COTTON GIN YARD SUPERVISOR, HERMILA S 724.4 NEURITIS THORACIC 01/28/2010 JOSIAS COTTON GIN YARD SUPERVISOR, HERMILA S 724.4 NEURITIS THORACIC 01/28/2010 724.4 NEURITIS THORACIC 01/28/2010 JOSIAS COTTON GIN YARD SUPERVISOR, HERMILA S 724.4 NEURITIS THORACIC 01/28/2010 724.4 NEURITIS THORACIC 01/28/2010 JOSIAS COTTON GIN YARD SUPERVISOR, HERMILA S 724.4 NEURITIS THORACIC 01/28/2010 POLANCO DO, JOE K 724.4 NEURITIS THORACIC 04/10/2010 JOSIAS COTTON GIN YARD SUPERVISOR, HERMILA S 724.2 lower back pain 04/10/2010 724.2 lower back pain 04/10/2010 724.2 lower back pain 04/10/2010 JOSIAS COTTON GIN YARD SUPERVISOR, HERMILA S 724.2 lower back pain 04/10/2010 JOSIAS COTTON GIN YARD SUPERVISOR, HERMILA S 724.2 lower back pain 04/10/2010 JOSIAS COTTON GIN YARD SUPERVISOR, HERMILA S 724.2 lower back pain 04/10/2010 JOSIAS COTTON GIN YARD SUPERVISOR, HERMILA S 724.2 lower back pain 04/10/2010 JOSIAS COTTON GIN YARD SUPERVISOR, HERMILA S 724.2 lower back pain 04/10/2010 JOSIAS COTTON GIN YARD SUPERVISOR, HERMILA S 724.2 lower back pain 04/10/2010 JOSIAS COTTON GIN YARD SUPERVISOR, HERMILA S 724.2 lower back pain 04/10/2010 JOSIAS COTTON GIN YARD SUPERVISOR, HERMIAL S 724.2 lower back pain 04/10/2010 JOSIAS COTTON GIN YARD SUPERVISOR, HERMILA S 724.2 lower back pain 04/10/2010 POLANCO DO, JOE K 724.2 lower back pain 04/10/2010 JOSIAS COTTON GIN YARD SUPERVISOR, HERMILA S 724.2 lower back pain 04/10/2010 JOSIAS COTTON GIN YARD SUPERVISOR, HERMILA S 724.2 lower back pain 04/10/2010 724.2 lower back pain 04/10/2010 JOSIAS COTTON GIN YARD SUPERVISOR, HERMILA S 724.2 lower back pain 04/10/2010 724.2 lower back pain 04/10/2010 JOSIAS COTTON GIN YARD SUPERVISOR, HERMILA S 724.2 lower back pain 04/10/2010 POLANCO DO, JOE K 724.2 lower back pain 04/30/2010 JOSIAS COTTON GIN YARD SUPERVISOR, HERMILA S 715.00 OSTEOARTHROSIS, GENERALIZED, SITE UNSPECIFIED 04/30/2010 715.00 OSTEOARTHROSIS, GENERALIZED, SITE UNSPECIFIED 04/30/2010 715.00 OSTEOARTHROSIS, GENERALIZED, SITE UNSPECIFIED 04/30/2010 JOSIAS COTTON GIN YARD SUPERVISOR, HERMILA S 715.00 OSTEOARTHROSIS, GENERALIZED, SITE UNSPECIFIED 04/30/2010 JOSIAS COTTON GIN YARD SUPERVISOR, HERMILA S 715.00 OSTEOARTHROSIS, GENERALIZED, SITE UNSPECIFIED 04/30/2010 JOSIAS COTTON GIN YARD SUPERVISOR, HERMILA S 715.00 OSTEOARTHROSIS, GENERALIZED, SITE UNSPECIFIED 04/30/2010 JOSIAS COTTON GIN YARD SUPERVISOR, HERMILA S 715.00 OSTEOARTHROSIS, GENERALIZED, SITE UNSPECIFIED 04/30/2010 JOSIAS COTTON GIN YARD SUPERVISOR, HERMILA S 715.00 OSTEOARTHROSIS, GENERALIZED, SITE UNSPECIFIED 04/30/2010 JOSIAS COTTON GIN YARD SUPERVISOR, HERMILA S 715.00 OSTEOARTHROSIS, GENERALIZED, SITE UNSPECIFIED 04/30/2010 JOSIAS COTTON GIN YARD SUPERVISOR, HERMILA S 715.00 OSTEOARTHROSIS, GENERALIZED, SITE UNSPECIFIED 04/30/2010 JOSIAS COTTON GIN YARD SUPERVISOR, HERMILA S 715.00 OSTEOARTHROSIS, GENERALIZED, SITE UNSPECIFIED 04/30/2010 JOSIAS COTTON GIN YARD SUPERVISOR, HERMILA S 715.00 OSTEOARTHROSIS, GENERALIZED, SITE UNSPECIFIED 04/30/2010 POLANCO DO, JOE K 715.00 OSTEOARTHROSIS, GENERALIZED, SITE UNSPECIFIED 04/30/2010 JOSIAS COTTON GIN YARD SUPERVISOR, HERMILA S 715.00 OSTEOARTHROSIS, GENERALIZED, SITE UNSPECIFIED 04/30/2010 JOSIAS COTTON GIN YARD SUPERVISOR, HERMILA S 715.00 OSTEOARTHROSIS, GENERALIZED, SITE UNSPECIFIED 04/30/2010 715.00 OSTEOARTHROSIS, GENERALIZED, SITE UNSPECIFIED 04/30/2010 JOSIAS COTTON GIN YARD SUPERVISOR, HERMILA S 715.00 OSTEOARTHROSIS, GENERALIZED, SITE UNSPECIFIED 04/30/2010 715.00 OSTEOARTHROSIS, GENERALIZED, SITE UNSPECIFIED 04/30/2010 JOSIAS COTTON GIN YARD SUPERVISOR, HERMILA S 715.00 OSTEOARTHROSIS, GENERALIZED, SITE UNSPECIFIED 04/30/2010 POLANCO DO, JOE K 715.00 OSTEOARTHROSIS, GENERALIZED, SITE UNSPECIFIED 01/06/2012 JOSIAS COTTON GIN YARD SUPERVISOR, HERMILA S 702.19 SEBORRHEIC KERATOSIS 01/06/2012 702.19 SEBORRHEIC KERATOSIS 01/06/2012 702.19 SEBORRHEIC KERATOSIS 01/06/2012 JOSIAS COTTON GIN YARD SUPERVISOR, HERMILA S 702.19 SEBORRHEIC KERATOSIS 01/06/2012 JOSIAS COTTON GIN YARD SUPERVISOR, HERMILA S 702.19 SEBORRHEIC KERATOSIS 01/06/2012 JOSIAS COTTON GIN YARD SUPERVISOR, HERMILA S 702.19 SEBORRHEIC KERATOSIS 01/06/2012 JOSIAS COTTON GIN YARD SUPERVISOR, HERMILA S 702.19 SEBORRHEIC KERATOSIS 01/06/2012 JOSIAS COTTON GIN YARD SUPERVISOR, HERMLIA S 702.19 SEBORRHEIC KERATOSIS 01/06/2012 JOSIAS COTTON GIN YARD SUPERVISOR, HERMILA S 702.19 SEBORRHEIC KERATOSIS 01/06/2012 JOSIAS COTTON GIN YARD SUPERVISOR, HERMILA S 702.19 SEBORRHEIC KERATOSIS 01/06/2012 JOSIAS COTTON GIN YARD SUPERVISOR, HERMILA S 702.19 SEBORRHEIC KERATOSIS 01/06/2012 JOSIAS COTTON GIN YARD SUPERVISOR, HERMILA S 702.19 SEBORRHEIC KERATOSIS 01/06/2012 POLANCO DO, JOE K 702.19 SEBORRHEIC KERATOSIS 01/06/2012 JOSIAS COTTON GIN YARD SUPERVISOR, HERMILA S 702.19 SEBORRHEIC KERATOSIS 01/06/2012 JOSIAS COTTON GIN YARD SUPERVISOR, HERMILA S 702.19 SEBORRHEIC KERATOSIS 01/06/2012 702.19 SEBORRHEIC KERATOSIS 01/06/2012 JOSIAS COTTON GIN YARD SUPERVISOR, HERMILA S 702.19 SEBORRHEIC KERATOSIS 01/06/2012 702.19 SEBORRHEIC KERATOSIS 01/06/2012 JOSIAS MEYERN, HERMILA S 702.19 SEBORRHEIC KERATOSIS 01/06/2012 POLANCO DO, JOE K 702.19 SEBORRHEIC KERATOSIS 12/22/2012 YOANDY FERRARA APRNNDA S 719.41 PAIN IN JOINT INVOLVING SHOULDER REGION 12/22/2012 719.41 PAIN IN JOINT INVOLVING SHOULDER REGION 12/22/2012 719.41 PAIN IN JOINT INVOLVING SHOULDER REGION 12/22/2012 JASMEET FERRARA APRNA S 719.41 PAIN IN JOINT INVOLVING SHOULDER REGION 12/22/2012 YOANDY FERRARA APRNNDA S 719.41 PAIN IN JOINT INVOLVING SHOULDER REGION 12/22/2012 JOSIAS COTTON GIN YARD SUPERVISOR HERMILA S 719.41 PAIN IN JOINT INVOLVING SHOULDER REGION 12/22/2012 JOSIAS COTTON GIN YARD SUPERVISOR HERMILA S 719.41 PAIN IN JOINT INVOLVING SHOULDER REGION 12/22/2012 JOSIAS COTTON GIN YARD SUPERVISOR, HERMILA S 719.41 PAIN IN JOINT INVOLVING SHOULDER REGION 12/22/2012 JOSIAS COTTON GIN YARD SUPERVISOR HERMILA S 719.41 PAIN IN JOINT INVOLVING SHOULDER REGION 12/22/2012 JOSIAS COTTON GIN YARD SUPERVISOR HERMILA S 719.41 PAIN IN JOINT INVOLVING SHOULDER REGION 12/22/2012 JOSIAS COTTON GIN YARD SUPERVISOR HERMILA S 719.41 PAIN IN JOINT INVOLVING SHOULDER REGION 12/22/2012 JOSIAS COTTON GIN YARD SUPERVISOR HERMILA S 719.41 PAIN IN JOINT INVOLVING SHOULDER REGION 12/22/2012 JOE POLANCO DO 719.41 PAIN IN JOINT INVOLVING SHOULDER REGION 12/22/2012 JOSIAS COTTON GIN YARD SUPERVISOR, HERMILA S 719.41 PAIN IN JOINT INVOLVING SHOULDER REGION 12/22/2012 JOSIAS SHEEHAN HERMILA S 719.41 PAIN IN JOINT INVOLVING SHOULDER REGION 12/22/2012 719.41 PAIN IN JOINT INVOLVING SHOULDER REGION 12/22/2012 JOSIAS SHEEHAN HERMILA S 719.41 PAIN IN JOINT INVOLVING SHOULDER REGION 12/22/2012 719.41 PAIN IN JOINT INVOLVING SHOULDER REGION 12/22/2012 JOSIAS SHEEHAN HERMILA S 719.41 PAIN IN JOINT INVOLVING SHOULDER REGION 12/22/2012 JOE POLANCO DO 719.41 PAIN IN JOINT INVOLVING SHOULDER REGION 06/15/2013 780.79 OTHER MALAISE AND FATIGUE 06/15/2013 780.79 OTHER MALAISE AND FATIGUE 06/15/2013 JOSIAS COTTON GIN YARD SUPERVISOR, HERMILA S 780.79 OTHER MALAISE AND FATIGUE 06/15/2013 JOSIAS COTTON GIN YARD SUPERVISOR, HERMILA S 780.79 OTHER MALAISE AND FATIGUE 06/15/2013 JOSIAS COTTON GIN YARD SUPERVISOR, HERMILA S 780.79 OTHER MALAISE AND FATIGUE 06/15/2013 JOSIAS COTTON GIN YARD SUPERVISOR, HERMILA S 780.79 OTHER MALAISE AND FATIGUE 06/15/2013 JOSIAS COTTON GIN YARD SUPERVISOR, HERMILA S 780.79 OTHER MALAISE AND FATIGUE 06/15/2013 JOSIAS COTTON GIN YARD SUPERVISOR, HERMILA S 780.79 OTHER MALAISE AND FATIGUE 06/15/2013 JOSIAS COTTON GIN YARD SUPERVISOR, HERMILA S 780.79 OTHER MALAISE AND FATIGUE 06/15/2013 JOSIAS COTTON GIN YARD SUPERVISOR, HERMILA S 780.79 OTHER MALAISE AND FATIGUE 06/15/2013 JOSIAS COTTON GIN YARD SUPERVISOR, HERMILA S 780.79 OTHER MALAISE AND FATIGUE 06/15/2013 POLANCO DO JOE K 780.79 OTHER MALAISE AND FATIGUE 06/15/2013 JOSIAS COTTON GIN YARD SUPERVISOR, HERMILA S 780.79 OTHER MALAISE AND FATIGUE 06/15/2013 JOSIAS COTTON GIN YARD SUPERVISOR, HERMILA S 780.79 OTHER MALAISE AND FATIGUE 06/15/2013 780.79 OTHER MALAISE AND FATIGUE 06/15/2013 JOSIAS COTTON GIN YARD SUPERVISOR, HERMILA S 780.79 OTHER MALAISE AND FATIGUE 06/15/2013 780.79 OTHER MALAISE AND FATIGUE 06/15/2013 JOSIAS COTTON GIN YARD SUPERVISOR, HERMILA S 780.79 OTHER MALAISE AND FATIGUE 06/15/2013 POLANCO DO JOE K 780.79 OTHER MALAISE AND FATIGUE 07/14/2013 ADRIENNE NAGY MD Ot 214.0 LIPOMA SKIN FACE 07/14/2013 ADRIENNE NAGY MD Ot 305.01 ALCOHOL ABUSE-CONTINUOUS 07/14/2013 ADRIENNE NAGY MD Ot 305.1 TOBACCO USE DISORDER 07/14/2013 ADRIENNE NAGY MD Ot 305.20 CANNABIS ABUSE-UNSPEC 07/14/2013 ADRIENNE NAGY MD Ot 722.52 LUMB/LUMBOSAC DISC DEGEN 07/14/2013 ADRIENNE NAGY MD Ot 790.5 ABN SERUM ENZY LEVEL NEC 08/09/2013 JOSIAS COTTON GIN YARD SUPERVISOR, HERMILA S 070.70 HEPATITIS C, UNSPEC 08/09/2013 JOSIAS COTTON GIN YARD SUPERVISOR, HERMILA S 070.70 HEPATITIS C, UNSPEC 08/09/2013 JOSIAS COTTON GIN YARD SUPERVISOR, HERMILA S 070.70 HEPATITIS C, UNSPEC 08/09/2013 JOSIAS COTTON GIN YARD SUPERVISOR, HERMILA S 070.70 HEPATITIS C, UNSPEC 08/09/2013 JOSIAS COTTON GIN YARD SUPERVISOR, HERMILA S 070.70 HEPATITIS C, UNSPEC 08/09/2013 JOSIAS COTTON GIN YARD SUPERVISOR, HERMILA S 070.70 HEPATITIS C, UNSPEC 08/09/2013 JOSIAS COTTON GIN YARD SUPERVISOR, HERMILA S 070.70 HEPATITIS C, UNSPEC 08/09/2013 JOSIAS COTTON GIN YARD SUPERVISOR, HERMILA S 070.70 HEPATITIS C, UNSPEC 08/09/2013 POLANCO DO, JOE K 070.70 HEPATITIS C, UNSPEC 08/09/2013 JOSIAS COTTON GIN YARD SUPERVISOR, HERMILA S 070.70 HEPATITIS C, UNSPEC 08/09/2013 JOSIAS COTTON GIN YARD SUPERVISOR, HERMILA S 070.70 HEPATITIS C, UNSPEC 08/09/2013 070.70 HEPATITIS C, UNSPEC 08/09/2013 JOSIAS COTTON GIN YARD SUPERVISOR, HERMILA S 070.70 HEPATITIS C, UNSPEC 08/09/2013 070.70 HEPATITIS C, UNSPEC 08/09/2013 JOSIAS COTTON GIN YARD SUPERVISOR, HERMILA S 070.70 HEPATITIS C, UNSPEC 08/09/2013 POLANCO DO, JOE K 070.70 HEPATITIS C, UNSPEC 09/11/2013 JOSIAS MEYERN HERMILA S V04.81 FLU SHOT 09/11/2013 JOSIAS COTTON GIN YARD SUPERVISOR HERMILA S V04.81 FLU SHOT 09/11/2013 JOSIAS MEYERN HERMILA S V04.81 FLU SHOT 09/11/2013 JOSIAS MEYERN HERMILA S V04.81 FLU SHOT 09/11/2013 JOSIAS MEYERN HERMILA S V04.81 FLU SHOT 09/11/2013 JOSIAS MEYERN HEMRILA S V04.81 FLU SHOT 09/11/2013 JOSIAS MEYERN HERMILA S V04.81 FLU SHOT 09/11/2013 POLANCO DO, JOE K V04.81 FLU SHOT 09/11/2013 JOSIAS COTTON GIN YARD SUPERVISOR, HERMILA S V04.81 FLU SHOT 09/11/2013 JOSIAS COTTON GIN YARD SUPERVISOR, HERMILA S V04.81 FLU SHOT 09/11/2013 V04.81 FLU SHOT 09/11/2013 JOSIAS COTTON GIN YARD SUPERVISOR HERMILA S V04.81 FLU SHOT 09/11/2013 V04.81 FLU SHOT 09/11/2013 YOANDY FERRARA APRNNDA S V04.81 FLU SHOT 09/11/2013 POLANCO DO, JOE K V04.81 FLU SHOT 03/20/2014 KHANH BHATT 847.2 SPRAIN LUMBAR REGION 03/20/2014 KHANH BHATT A 959.19 OTHER INJURY OF OTHER SI 03/20/2014 KHANH BHATT E927.0 OVEREXERTION, SUDDEN 06/06/2014 JASMEET FERRARA APRNA S V77.91 SCREENING FOR LIPOID DISORDERS 06/06/2014 JASMEET FERRARA APRNA S V77.91 SCREENING FOR LIPOID DISORDERS 06/06/2014 JOE POLANCO DO K V77.91 SCREENING FOR LIPOID DISORDERS 06/06/2014 YOANDY FERRARA APRNNDA S V77.91 SCREENING FOR LIPOID DISORDERS 06/06/2014 YOANDY FERRARA APRNNDA S V77.91 SCREENING FOR LIPOID DISORDERS 06/06/2014 V77.91 SCREENING FOR LIPOID DISORDERS 06/06/2014 YOANDY FERRARA APRNNDA S V77.91 SCREENING FOR LIPOID DISORDERS 06/06/2014 V77.91 SCREENING FOR LIPOID DISORDERS 06/06/2014 YOANDY FERRARA APRNNDA S V77.91 SCREENING FOR LIPOID DISORDERS 06/06/2014 JOE POLANCO DO K V77.91 SCREENING FOR LIPOID DISORDERS 07/19/2014 JOE POLANCO DO K 719.43 PAIN- WRIST 07/19/2014 JASMEET FERRARA APRNA S 719.43 PAIN- WRIST 07/19/2014 JASMEET FERRARA APRNA S 719.43 PAIN- WRIST 07/19/2014 719.43 PAIN- WRIST 07/19/2014 JASMEET FERRARA APRNA S 719.43 PAIN- WRIST 07/19/2014 719.43 PAIN- WRIST 07/19/2014 YOANDY FERRARA APRNNDA S 719.43 PAIN- WRIST 07/19/2014 JOE POLANCO DO K 719.43 PAIN- WRIST 08/13/2014 ADRIENNE NAGY MD Ot 721.3 LUMBOSACRAL SPONDYLOSIS 08/13/2014 ADRIENNE NAGY MD Ot 722.52 LUMB/LUMBOSAC DISC DEGEN 08/13/2014 ADRIENNE NAGY MD Ot V58.69 OT MED,LT,CURRENT USE 11/28/2014 719.46 PAIN- KNEE 11/28/2014 HERMILA FERRARA APRN 719.46 PAIN- KNEE 11/28/2014 POLANCO JOE NAVARRETE 719.46 PAIN- KNEE 02/01/2015 Ot 721.3 03/06/2015 YAKOV JAY, ADRIENNE Ceballos Ot 722.52 07/27/2015 PRASAD PACHECO 305.90 DRUG ABUSE NEC-UNSPEC 07/27/2015 PRASAD PACHECO A 724.5 BACKACHE NOS 07/27/2015 PRASAD PACHECO 847.2 SPRAIN LUMBAR REGION 07/27/2015 PRASAD PACHECO E928.9 ACCIDENT NOS 07/27/2015 PRASAD PACHECO V65.2 PERSON FEIGNING ILLNESS 12/20/2015 ADRIENNE NAGY MD Ot 722.52 01/10/2016 HERMILA FERRARA Ot M25.562 07/01/2016 ADRIENNE NAGY MD Ot 722.52 LUMB/LUMBOSAC DISC DEGEN 07/01/2016 HERMILA FERRARA Ot M25.562 PAIN IN LEFT KNEE 07/24/2016 ADRIENNE NAGY MD Ot 722.52 LUMB/LUMBOSAC DISC DEGEN 07/24/2016 HERMILA FERRARA Ot M25.562 PAIN IN LEFT KNEE 06/26/2018 Ot F17.210 NICOTINE DEPENDENCE, CIGARETTES, UNCOMPL 06/26/2018 Ot J40 BRONCHITIS, NOT SPECIFIED ACUTE OR CH 06/26/2018 Ot K21.9 GASTRO- ESOPHAGEAL REFLUX DISEASE WITHOUT 06/26/2018 Ot R06.02 SHORTNESS OF BREATH 06/26/2018 Ot R07.9 CHEST PAIN, UNSPECIFIED 06/26/2018 Ot Z79.52 SENIOR LIVING ( CURRENT) USE OF SYSTEMIC STER 06/26/2018 Ot Z87.19 PERSONAL HISTORY OF OTHER DISEASES OF TH Procedures Code Description Performed By Performed On Family Wendi Alicia 12/22/2012 Orthopedi Mark Sprague 12/22/2012 Otolaryng Dina Masters 12/22/2012 35779 XRAY SHOULDER RIGHT COMP 2 VIEWS 12/29/2012 41690 ROUTINE VENIPUNCTURE 07/04/2013 74620 CBC 07/04/2013 48184 LIPID PANEL 07/04/2013 07017 CMP 07/04/2013 5746227 GFR CALC (RESULT ONLY) 07/04/2013 82000 TSH 07/04/2013 10630 URINE DRUG SCREEN (IN-HOUSE ) 09/11/2013 42396 HEP C PCR QUANT W/ROS 09/11/2013 G0008 FLU ADMINISTRATION ( MEDICARE ONLY) 09/11/2013 72103 ROUTINE VENIPUNCTURE 12/20/2013 71466 HEP B SURFACE ANTIGEN (STATE ) 12/20/2013 95414 URINE DRUG SCREEN (IN-HOUSE ) 12/20/2013 30687 CBC 12/20/2013 40424 HEP C PCR QUANT (SERIAL) 12/20/2013 8585739 GFR CALC (RESULT ONLY) 12/20/2013 99981 LIVER PANEL (LFT) 12/20/2013 57898 CMP 12/20/2013 43951 PT/INR 12/20/2013 69662 ROUTINE VENIPUNCTURE 01/22/2014 98068 GENOTYPE DNA HEPATITIS C 01/22/2014 32177 THER/PROPH/DIAG INJ, IV PUSH 03/20/2014 35074 TX/PRO/DX INJ NEW DRUG ADDON 03/20/2014 68135 EMERGENCY DEPT VISIT 03/20/2014 70487 EMERGENCY DEPT VISIT 03/20/2014 A9270 Non-covered item or service 03/20/2014 J1170 Hydromorphone injection 03/20/2014 J2360 Orphenadrine injection 03/20/2014 80120 [employer] 06/08/2014 90870 ROUTINE VENIPUNCTURE 06/22/2014 98440 LIPID PANEL 06/22/2014 91342 CBC 06/22/2014 10110 CMP 06/22/2014 8401526 GFR CALC (RESULT ONLY) 06/22/2014 41106 TSH 06/22/2014 15713 ROUTINE VENIPUNCTURE 09/07/2014 95109 CBC 09/07/2014 0266247 GFR CALC (RESULT ONLY) 09/07/2014 54902 CMP 09/07/2014 7315116 CANCELLED TEST 09/07/2014 6816589 AFTERHOURS CALL RESULTS 09/07/2014 46143 PT/INR 09/07/2014 87294 T4 FREE 09/07/2014 58032 TSH 09/07/2014 23429 AFP TUMOR MARKER 09/08/2014 27442 ROUTINE VENIPUNCTURE 09/24/2014 41612 CBC 09/24/2014 40100 CMP 09/24/20146704925 GFR CALC (RESULT ONLY) 09/24/2014 45732 AMMONIA 09/25/2014 25152 ROUTINE VENIPUNCTURE 11/16/2014 25851 CMP 11/16/20145844100 GFR CALC (RESULT ONLY) 11/16/2014 73167 CBC 11/16/2014 15212 HEP C PCR QUANT (SERIAL) 11/19/2014 89297 [employer] 01/22/2015 72333 THER/PROPH/DIAG INJ, SC/IM 07/27/2015 53827 EMERGENCY DEPT VISIT 07/27/2015 11715 EMERGENCY DEPT VISIT 07/27/2015 J1885 TORADOL SYR 30MG/ML 07/27/2015 Results Test Result Range Comp. Metabolic Panel (14) - 02/18/17 15:11 Glucose, Serum 92 mg/dL 65-99 BUN 12 mg/dL 8-27 Creatinine, Serum 0.96 mg/dL 0.76-1.27 eGFR If NonAfricn Am 84 mL/min/1.73 >59 eGFR If Africn Am 97 mL/min/1.73 >59 BUN/Creatinine Ratio 13 10-24 Sodium, Serum 140 mmol/L 134-144 Potassium, Serum 4.2 mmol/L 3.5-5.2 Chloride, Serum 101 mmol/L 96-106 Carbon Dioxide, Total 21 mmol/L 18-29 Calcium, Serum 9.1 mg/dL 8.6-10.2 Protein, Total, Serum 7.1 g/dL 6.0-8.5 Albumin, Serum 4.5 g/dL 3.6-4.8 Globulin, Total 2.6 g/dL 1.5-4.5 A/G Ratio 1.7 1.2-2.2 Bilirubin, Total 0.3 mg/dL 0.0-1.2 Alkaline Phosphatase, S 86 IU/L 39-117 AST (SGOT) 13 IU/L 0-40 ALT (SGPT) 9 IU/L 0-44 Lipid Panel - 02/18/17 15:11 Cholesterol, Total 165 mg/dL 100-199 Triglycerides 104 mg/dL 0-149 HDL Cholesterol 39 mg/dL >39 VLDL Cholesterol Quentin 21 mg/dL 5-40 LDL Cholesterol Calc 105 mg/dL 0-99 CBC With Differential/Platelet - 03/09/17 12:47 WBC 8.7 x10E3/uL 3.4-10.8 RBC 4.95 x10E6/uL 4.14-5.80 Hemoglobin 15.4 g/dL 12.6-17.7 Hematocrit 45.1 % 37.5-51.0 MCV 91 fL 79-97 MCH 31.1 pg 26.6-33.0 MCHC 34.1 g/dL 31.5-35.7 RDW 13.3 % 12.3-15.4 Platelets 349 x10E3/uL 150-379 Neutrophils 56 % Lymphs 37 % Monocytes 6 % Eos 1 % Basos 0 % Neutrophils (Absolute) 4.8 x10E3/uL 1.4-7.0 Lymphs (Absolute) 3.2 x10E3/uL 0.7-3.1 Monocytes(Absolute) 0.6 x10E3/uL 0.1-0.9 Eos (Absolute) 0.1 x10E3/uL 0.0-0.4 Baso (Absolute) 0.0 x10E3/uL 0.0-0.2 Immature Granulocytes 0 % Immature Grans (Abs) 0.0 x10E3/uL 0.0-0.1 Comp. Metabolic Panel (14) - 03/09/17 12:47 Glucose, Serum 97 mg/dL 65-99 BUN 12 mg/dL 8-27 Creatinine, Serum 0.75 mg/dL 0.76-1.27 eGFR If NonAfricn Am 98 mL/min/1.73 >59 eGFR If Africn Am 113 mL/min/1.73 >59 BUN/Creatinine Ratio 16 10-24 Sodium, Serum 139 mmol/L 134-144 Potassium, Serum 4.4 mmol/L 3.5-5.2 Chloride, Serum 102 mmol/L 96-106 Carbon Dioxide, Total 23 mmol/L 18-29 Calcium, Serum 9.5 mg/dL 8.6-10.2 Protein, Total, Serum 7.6 g/dL 6.0-8.5 Albumin, Serum 4.7 g/dL 3.6-4.8 Globulin, Total 2.9 g/dL 1.5-4.5 A/G Ratio 1.6 1.2-2.2 Bilirubin, Total 0.3 mg/dL 0.0-1.2 Alkaline Phosphatase, S 78 IU/L 39-117 AST (SGOT) 13 IU/L 0-40 ALT (SGPT) 9 IU/L 0-44 Encounters ACCT No. Visit Date/Time Discharge Status Pt. Type Provider Facility Loc./Unit Complaint [id number] 07/27/2015 13:54:00 07/27/2015 15:00:00 DIS Emergency PRASAD PACHECO [facility] EMR [id number] 03/20/2014 07:17:00 03/20/2014 09:15:00 DIS Emergency KHANH BHATT [facility] EMR [id number] 02/19/2017 08:41:00 Document Registration [id number] 02/21/2018 14:40:00 02/21/2018 23:59:59 CLS Outpatient HERMILA FERRARA APRN [facility] [id number] 12/20/2015 09:59:00 12/20/2015 23:59:59 CLS Outpatient HERMILA FERRARA [employer] [facility] RAD KNEE PAIN [id number] 02/01/2015 08:59:00 02/01/2015 23:59:59 CLS Outpatient ADRIENNE NAGY MD [facility] CARD DDD [id number] 08/13/2014 12:56:00 08/13/2014 14:27:00 DIS Outpatient ADRIENNE NAGY MD [facility] CARD DDD [id number] 07/11/2013 09:32:00 07/14/2013 13:10:00 DIS Outpatient ADRIENNE NAGY MD [facility] INTRACTABLE BACK PAIN [id number] 06/20/2018 16:02:00 Document Registration [id number] 05/02/2010 15:16:00 Document Registration [id number] 03/10/2017 08:07:00 Document Registration [id number] 07/28/2015 01:53:40 ACT Document Registration [id number] 02/01/2015 07:33:00 02/01/2015 23:59:59 CLS Outpatient JOE POLANCO DO [id number] 01/22/2015 09:32:00 01/22/2015 23:59:59 CLS Outpatient HERMILA FERRARA APRN [id number] 12/18/2014 08:15:00 12/18/2014 23:59:59 CLS Outpatient [id number] 11/16/2014 10:54:00 11/16/2014 23:59:59 CLS Outpatient JOSIAS COTTON [employer]PER[employer], HERMILA S [id number] 10/17/2014 05:53:00 10/17/2014 23:59:59 CLS Outpatient [id number] 09/24/2014 09:55:00 09/24/2014 23:59:59 CLS Outpatient JOSIAS COTTON [employer] SUPERVISOR, HERMILA S [id number] 09/07/2014 08:54:00 09/07/2014 23:59:59 CLS Outpatient JOSIAS COTTON [employer] SUPERVISOR, HERMILA S [id number] 07/20/2014 07:38:00 07/20/2014 23:59:59 CLS Outpatient JOE POLANCO DO [id number] 06/22/2014 10:11:00 06/22/2014 23:59:59 CLS Outpatient JOSIAS COTTON [employer] SUPERVISOR, HERMILA S [id number] 06/06/2014 09:04:00 06/06/2014 23:59:59 CLS Outpatient JOSIAS COTTON [employer] SUPERVISOR, HERMILA S [id number] 04/16/2014 12:19:00 04/16/2014 23:59:59 CLS Outpatient JOSIAS COTTON [employer] SUPERVISOR, HERMILA S [id number] 01/22/2014 12:33:00 01/22/2014 23:59:59 CLS Outpatient JOSIAS COTTON [employer] SUPERVISOR, HERMILA S [id number] 12/27/2013 15:10:00 12/27/2013 23:59:59 CLS Outpatient JOSIAS COTTON [employer] SUPERVISOR, HERMILA S [id number] 12/20/2013 10:56:00 12/20/2013 23:59:59 CLS Outpatient JSOIAS COTTON [employer] SUPERVISOR, HERMILA S [id number] 09/11/2013 09:53:00 09/11/2013 23:59:59 CLS Outpatient JOSIAS COTTON [employer] SUPERVISOR, HERMILA S [id number] 08/09/2013 12:45:00 08/09/2013 23:59:59 CLS Outpatient JOSIAS COTTON [employer] SUPERVISOR, HERMILA S [id number] 12/22/2012 10:48:00 12/22/2012 23:59:59 CLS Outpatient JOSIAS COTTON [employer] SUPERVISOR, HERMILA S [id number] 12/22/2012 10:48:00 12/22/2012 23:59:59 [facility] Outpatient HERMILA FERRARA APRN [id number] 07/04/2013 11:51:00 Document Registration [id number] 06/15/2013 15:52:00 Document Registration
[2018-07-18 10:09] VITALS: BP 134/84
[2018-07-18] MEDS: NS IV 500 ML 500 ML IV PRN ×2 (10:10→14:15)
[2018-07-18] MEDS ORDERED: fentaNYL INJECTION 100 MCG/2 ML AMP ONE (13:50)
[2018-07-18] MEDS ORDERED: MIDAZOLAM 2 MG/2 ML (VERSED) VIAL ONE ×3 (13:50→13:51)
[2018-07-18] MEDS ORDERED: HURRICAINE EXT TUBE (BENZOCAINE) ONE (13:51)
--- NOTE | 2018-07-18 13:56 | History & Physicial ---
History of Present Illness History of Present Illness Reason for visit/HPI to undergo an upper endoscopy regarding epigastric and substernal pain. Cardiac evaluation is negative. Date of Admission 07/18/18 Date Seen by Provider: Jul 18, 2018 Time Seen by Provider: 13:55 I consulted on this patient on 07/18/18 13:55 Attending Physician Zabrina Gonsalez MD Admitting Physician Jaymie May DO Consult Allergies and Home Medications Allergies Coded Allergies: No Known Drug Allergies (Unverified , 07/11/13) Home Medications Omeprazole 20 Mg Tablet.dr, 20 MG PO DAILY, (Reported) Patient Home Medication List Home Medication List Reviewed: Yes Past Nnfqyrx-Lfmodg-Briwck Hx Patient Social History Marrital Status: Employed/Student: retired Alcohol Use: Regular Use Number of Drinks Today: AA Alcohol Beverage of Choice: Beer Recreational Drug Use: No Smoking Status: Current Everyday Smoker Type Used: Cigarettes Recent Foreign Travel: No Contact w/other who traveled: No Recent Hopitalizations: No Immunizations Up To Date Tetanus Booster (TDap): More than 5yrs Pediatric: No Date of Pneumonia Vaccine: Aug 08, 2012 Seasonal Allergies Seasonal Allergies: No Surgeries Yes (knee and elbow surgery both on right) Orthopedic Respiratory No Cardiovascular No Hypertension Neurological No Reproductive System Hx Reproductive Disorders: No Gastrointestinal No Gastroesophageal Reflux, Hemorrhoids Musculoskeletal Yes Chronic Back Pain Endocrine History of Endocrine Disorders: No Cancer No Psychosocial History of Psychiatric Problem: No Integumentary History of Skin or Integumenta: No Blood Transfusions History of Blood Disorders: No Family Medical History Significant Family History: No Pertinent Family Hx Review of Systems Constitutional: no symptoms reported EENTM: no symptoms reported Respiratory: no symptoms reported Cardiovascular: no symptoms reported Gastrointestinal: see HPI Genitourinary: no symptoms reported Musculoskeletal: no symptoms reported Skin: no symptoms reported Physical Exam Vital Signs Vital Signs - First Documented 07/18/18 10:09 Temp 97.0 Pulse 70 Resp 18 B/P (MAP) 134/84 (101) Pulse Ox 95 O2 Delivery Room Air Capillary Refill : Height, Weight, BMI Height: 5'6.00" Weight: 158lbs. 0.0oz. [id number]; 25.5 BMI Method:Stated General Appearance: No Apparent Distress Neck: Normal Inspection Respiratory: Lungs Clear Cardiovascular: Regular Rate, Rhythm Gastrointestinal: Non Tender, Soft Neurologic/Psychiatric: Alert Skin: Warm/Dry Assessment/Plan Assessment and Plan gentleman with epigastric and substernal pain. For upper endoscopy Admission Diagnosis Admission Status: Other (Outpt Proc) ZABRINA GONSALEZ MD Jul 18, 2018 13:56
--- NOTE | 2018-07-18 13:57 | Conscious Sedation/ASA ---
Conscious Sedation Pre-Proced Time Reviewed: 13:56 ASA Class: 2 Airway Mallampati Classification: ([place] appropriate class) I. II. III, IV Lungs Heart ASA score ASA 1: a normal healthy patient ASA 2: a patient with a mild systemic disease (mid diabetes, controlled hypertension, obesity ASA 3: a patient with a severe systemic disease that limits activity (angina , COPD, prior Myocardial infarction) ASA 4: a patient with an incapacitating disease that is a constant threat to life (CHF, renal failure) ASA 5: a moribund patient not expected to survive 24 hrs. (ruptured aneurysm) ASA 6: a declared brain patient whose organs are being harvested. For emergent operations, add the letter E after the classification Grade 1 Sedation Plan: Discussed options with patient/fam Note The patient is an appropriate candidate to undergo the planned procedure, sedation, and anesthesia. The patient immediately re-assessed prior to indication. ZABRINA GONSALEZ MD Jul 18, 2018 13:57
--- NOTE | 2018-07-18 14:25 | Endo Procedure Record ---
Endo Procedure Report Date of Procedure Last Colonoscopy: No Jul 18, 2018 Surgeon (s) ZABRINA GONSALEZ MD Post Procedure/Op Diagnosis Distal gastritis and duodenitis Procedure Performed EGD with antral biopsy Description of Procedure Anesthesia Type: Conscious Sedation Specimen(s) collected/removed Antral mucosa for H.pylori Description of the Procedure Indication for the procedure: This gentleman came in for an upper endoscopy to evaluate epigastric and substernal pain. Informed consent was obtained after reviewing the procedure in detail. Description of the procedure: He was placed in left lateral rectus position and his vital signs were monitored. Conscious sedation was achieved using Versed and fentanyl. The flexible gastroscope was then introduced down the esophagus, past the stomach, into the proximal duodenum. Findings: Esophagus: Normal Stomach: Mild distal gastritis. Biopsy for H. pylori was obtained. Duodenum: Changes of duodenitis were found along the first part. He tolerated the procedure well and was taken back to the nursing area in a stable condition. Impression: Epigastric and substernal pain. Mild gastritis and duodenitis. Helicobacter status pending. Note: An ultrasound of the gallbladder has been requested as an outpatient, to rule out gallstones. Copy Copies To 1: JOE POLANCO XAVIER M MD Jul 18, 2018 14:25
--- NOTE | 2018-07-18 14:26 | Discharge Inst-Simple/Standard ---
Discharge Inst-Standard Discharge Medications New, Converted or Re-Newed RX: Other Patient Instructions/Follow Up Plan of Care/Instructions/FU: please schedule a gallbladder ultrasound as an outpatient Activity as Tolerated: Yes Discharge Diet: No Restrictions ZABRINA GONSALEZ MD Jul 18, 2018 14:26
[2018-07-18 14:35] VITALS: BP 128/68
[2018-07-18 15:00] VITALS: BP 132/74
[2018-07-18 15:01] VITALS: BP 132/74
== END 2018-07-18 15:10 | disposition home or self-care (01) ==
LOC: ENDO 09:49
PROVIDERS: ATTEND Surgery
DX: K29.70 Gastritis, unspecified, without bleeding (principal); K29.80 Duodenitis without bleeding; F17.210 Nicotine dependence, cigarettes, uncomplicated; I10 Essential (primary) hypertension; K21.9 Gastro-esophageal reflux disease without esophagitis
CPT/HCPCS: 88305